=== PATIENT | male | born 1960 | race Hispanic/Latino ===

== ENCOUNTER 2017-11-04 01:16 | Inpatient (IN) | payer MEDICAID, OTHER ==
[2017-11-04 01:23] VITALS: BMI 21.9
--- NOTE | 2017-11-04 01:24 | ED PDOC ---
Arrival/HPI - General Historian: Patient, EMS - General Time Seen by Provider: 11/04/17 01:18 - History of Present Illness Narrative History of Present Illness (Text): 11/04/17 01:21 57 y/o male, no significant pmh, FS 117, found inside the car by the police with the engine on x 1 hour. Pt. is in the ER, appear to be intoxicated with limited HPI can be obtained. Pt. was found by the police that he was inside the car, not responding question appropriately, called for the ambulance and bring the patient to the ER for evaluation. Pt. is here at the ER with no medical or psychological complaints, no homicidal or suicidal ideation, no auditory or visual hallucination. (Miguel Mcmullen) Past Medical History - Provider Review Nursing Documentation Reviewed: Yes - Past History Past History: No Previous - Past Medical History Past Medical History: Unable to Obtain - Past Surgical History Past Surgical History: Unable to Obtain Family/Social History - Physician Review Nursing Documentation Reviewed: Yes Family/Social History: Unknown Family HX Allergies/Home Meds Allergies/Adverse Reactions: Allergies No Known Allergies Allergy (Verified 11/04/17 01:23) Home Medications: Home Meds Medication Instructions Recorded Confirmed Unobtainable 11/04/17 11/04/17 Review of Systems - Review of Systems Systems not reviewed;Unavailable: Intoxicated Constitutional: absent: Fatigue, Weight Change Eyes: absent: Vision Changes ENT: absent: Hearing Changes Respiratory: absent: SOB, Cough Cardiovascular: absent: Chest Pain Gastrointestinal: absent: Abdominal Pain, Diarrhea, Nausea, Vomiting Musculoskeletal: absent: Arthralgias, Myalgias Skin: absent: Rash, Pruritis Neurological: absent: Headache, Dizziness Psychiatric: absent: Anxiety, Depression, Suicidal Ideation Physical Exam - Physical Exam Physical Exam Limitations: Intoxication - Systems Exam Head: Present: Atraumatic, Normocephalic. No: Tenderness, Contusion, Swelling, Ecchymosis, Abrasion, Laceration, Other Pupils: Present: PERRL Extroacular Muscles: Present: EOMI Conjunctiva: Present: Normal Mouth: Present: Moist Mucous Membranes Neck: Present: Normal Range of Motion, Trachea Midline. No: Meningeal Signs, MIDLINE TENDERNESS, Paraspinal Tenderness, Lymphadenopathy Respiratory/Chest: Present: Clear to Auscultation, Good Air Exchange. No: Respiratory Distress, Accessory Muscle Use Cardiovascular: Present: Regular Rate and Rhythm, Normal S1, S2. No: Murmurs Abdomen: No: Tenderness, Distention, Peritoneal Signs, Rebound, Guarding Back: Present: Normal Inspection Upper Extremity: Present: Normal Inspection. No: Cyanosis, Edema Lower Extremity: Present: Normal Inspection. No: Edema Neurological: Present: GCS=15, CN II-XII Intact, Motor Func Grossly Intact Skin: Present: Warm, Dry, Normal Color. No: Rashes Psychiatric: Present: Alert, Normal Insight, Normal Concentration Vital Signs Temp Pulse Pulse Resp BP Pulse Ox 11/04/17 09:09 111 H 16 11/04/17 08:25 100 H 17 131/91 H 95 11/04/17 07:29 98 H 18 123/90 98 11/04/17 06:44 97 F L 90 18 121/87 96 11/04/17 06:29 91 H 18 134/99 H 95 11/04/17 05:21 97.6 F 93 H 16 124/92 H 95 11/04/17 05:05 94 H 18 102/61 96 11/04/17 02:14 97.8 F 110 H 18 109/49 L 95 11/04/17 01:24 97.6 F 110 H 18 140/115 H 94 L Medical Decision Making - Critical Care Critical Care Minutes: 30 minutes Critical Care Time: Unstable - Lab Interpretations I have reviewed the lab results: Yes - RAD Interpretation Manufacturing Design Engineer: Radiologist ED Course and Treatment: 11/04/17 03:04: Case endorsed to me by SHAKILA Mcmullen. Pending CT, Chest X-ray, and labs, reassessment, and disposition. CT Head Without Intravenous Contrast EXAM DATE/TIME: 11/04/2017 1:24 AM Dictated and Authenticated by: Raghu Broussard MD 11/04/2017 4:33 AM Eastern Time ([place] & [place]) IMPRESSION: 1. There is a linear focus of gas within the right frontal scalp, suggestive of laceration. 2. No acute intracranial hemorrhage or acute territorial type infarct. 3. There are scattered foci of hypodensity within the cerebral white matter, likely representing small vessel ischemic disease in a patient this age. 4. Mild atrophy. 5. Multiple foci of gas are identified within the facial soft tissues and parapharyngeal soft tissues at the level of the nasopharynx. This is most significant on the right side. Foci of gas are seen within the orbits, with dilatation of the bilateral superior ophthalmic veins. A facial CT is recommended. 6. There is a cystic collection of fluid adjacent to the root of a right molar tooth extending into the right maxillary sinus measuring 1.3 x 1.3 x 1.5 cm. This is consistent with an odontogenic cyst or abscess. 7. Paranasal sinus disease is noted above. 11/04/17 04:38: Case discussed with medical health researcher. 11/04/17 04:50: Case discussed with Dr. Monroy. Will admit patient to Telemetry. 11/04/17 05:22: Patient seen and evaluated by Dr. Monroy. Requests patient be given more IV Fluids and will re-evaluate to determine if patient should be admitted to ICU or Telemetry. (Oswaldo Goetz) 11/04/17 01:23 -labs/CO Level -CT head -IVF/Oxygen -Observe and reassess 11/04/17 01:34 -Pt. is agitated, threatened to leave and not stable enough to be discharged, pushing ER staff and me, ativan 2mg IM ordered 11/04/17 02:40 -WBC 14.9, Tachycardia, Lactic acid 5.2, hypotension @ 109/49, Code sepsis activated, 30ml/kg LR fluid ordered, IV vancomycin/zosyn ordered. -Pt. pull out the IV, agitated, soft restraint order. 11/04/17 02:51 -Case discussed and endorsed to ER attending Dr. Goetz for the admission and follow up the labs. -Labs show no acute findings except wbc 14.9 with lactic acid 5.2 -Alcohol level 502 -Carboxyhemoglobin level 2.1 (within normal limit for smoker (he is)). -UA ordered but pending -UDS ordered but pending -CT head and chest xray ordered but pending. (Miguel Mcmullen) - Critical Care Narrative Critical Care (Text): 11/04/17 02:59 Confused, sepsis, intoxication, IVF resucitation, IV vancomycin and zosyn (Miguel Mcmullen) - Lab Interpretations Lab Results: 11/04/17 08:33 11/04/17 08:33 Lab Results 11/04/17 08:33: Serum Osmolality 408 H 11/04/17 08:33: Sodium 148, Chloride 109 H, Potassium 3.6, Carbon Dioxide 19 L, Anion Gap 23 H, BUN 13, Creatinine 0.9, Est GFR ( Amer) > 60, Est GFR ( Non-Af Amer) > 60, Random Glucose 84, Calcium 7.8 L, Magnesium 1.7, Total Bilirubin 0.6, AST 55, ALT 31, Alkaline Phosphatase 54, Lactate Dehydrogenase 623, Total Creatine Kinase 213, Troponin I 0.73 H*, Total Protein 6.0, Albumin 3.5, Globulin 2.5, Albumin/Globulin Ratio 1.4 11/04/17 08:33: Procalcitonin 0.08 L 11/04/17 08:33: WBC 11.5 H D, RBC 4.61, Hgb 15.6 D, Hct 45.7, MCV 99.1, MCH 33.8, MCHC 34.1, RDW 14.4, Plt Count 89 L, MPV 10.4, Gran % 65.4, Lymph % (Auto ) 24.9, Beck[place] % (Auto) 8.9 H, Eos % (Auto) 0.6 L, Baso % (Auto) 0.2, Gran # 7.50 H, Lymph # (Auto) 2.9, Beckham # (Auto) 1.0 H, Eos # (Auto) 0.1, Baso # (Auto) 0.02 11/04/17 08:30: Triglycerides 103, Cholesterol 139, LDL Cholesterol Direct 46, HDL Cholesterol 69 H 11/04/17 08:00: pO2 173 H, VBG pH 7.36, VBG pCO2 35.0 L, VBG HCO3 19.8 L, VBG Total CO2 20.9 L, VBG O2 Sat (Calc) 100.0 H, VBG Base Excess -4.9 L, VBG Potassium 3.5 L, Sodium 143.0, Chloride 110.0 H, Glucose 91, Lactate 5.4 H*, FiO2 21.0, Venous Blood Potassium 3.5 L 11/04/17 06:50: pCO2 26 L, pO2 79.0 L, HCO3 16.1 L, ABG pH 7.40, ABG Total CO2 16.9 L, ABG O2 Saturation 97.5, ABG O2 Content 19.6, ABG Base Excess -6.9 L, ABG Hemoglobin 14.7, ABG Carboxyhemoglobin 2.1 H, POC ABG HHb (Measured) 2.4, ABG Methemoglobin 1.0, ABG O2 Capacity 20.1, Hgb O2 Saturation 94.6 L, FiO2 32.0 11/04/17 05:00: Urine Opiates Screen Negative, Urine Methadone Screen Negative, Ur Barbiturates Screen Negative, Ur Phencyclidine Scrn Negative, Ur Amphetamines Screen Negative, U Benzodiazepines Scrn Negative, U Oth Cocaine Metabols Negative, U Cannabinoids Screen Negative 11/04/17 05:00: Urine Color Yellow, Urine Appearance Clear, Urine pH 6.0, Ur Specific [place] 1.020, Urine Protein 30 H, Urine Glucose (UA) Negative, Urine Ketones Trace H, Urine Blood Small H, Urine Nitrate Negative, Urine Bilirubin Negative, Urine Urobilinogen 0.2, Ur Leukocyte Esterase Negative, Urine RBC 0 - 2, Urine WBC 0 - 2, Ur Epithelial Cells 0 - 2 11/04/17 04:45: pO2 215 H, VBG pH 7.29 L, VBG pCO2 36.0 L, VBG HCO3 17.3 L, VBG Total CO2 18.4 L, VBG O2 Sat (Calc) 100.0 H, VBG Base Excess -8.5 L, VBG Potassium 3.3 L, Sodium 142.0, Chloride 109.0 H, Glucose 108, Lactate 5.8 H*, FiO2 21.0, Venous Blood Potassium 3.3 L 11/04/17 02:29: pCO2 30 L, pO2 76.0 L, HCO3 15.8 L, ABG pH 7.33 L, ABG Total CO2 16.7 L, ABG O2 Saturation 96.0, ABG Base Excess -8.6 L, ABG Potassium 3.1 L , Sodium 144.0, Chloride 110.0 H, Glucose 116 H, Lactate 5.0 H*, FiO2 28.0, Arterial Blood Potassium 3.1 L 11/04/17 02:29: ABG O2 Saturation Cancelled, ABG Hemoglobin Cancelled, ABG Carboxyhemoglobin Cancelled, ABG Methemoglobin Cancelled, Hgb O2 Saturation Cancelled, FiO2 Cancelled, Blood Gas Comments Cancelled, Crit Value Called To Cancelled, Crit Value Called By Cancelled, Crit Value Read Back Cancelled, Blood Gas Notified Time Cancelled 11/04/17 02:29: pCO2 30 L, pO2 76.0 L, HCO3 15.8 L, ABG pH 7.33 L, ABG Total CO2 16.7 L, ABG O2 Saturation 96.0, ABG Base Excess -8.6 L, ABG Hemoglobin 17.1 , ABG Carboxyhemoglobin 2.1 H, POC ABG HHb (Measured) 3.9, ABG Methemoglobin 1.0 , Hgb O2 Saturation 93.0 L, FiO2 28 11/04/17 02:08: Phosphorus 3.5 11/04/17 02:08: WBC 14.9 H, RBC 5.27, Hgb 18.3 H*, Hct 52.8 H, MCV 100.2, MCH 34.7, MCHC 34.7, RDW 14.5, Plt Count 128, MPV 9.8, Gran % 68.5 H, Lymph % (Auto ) 23.0, Beckham % (Auto) 8.3 H, Eos % (Auto) 0.1 L, Baso % (Auto) 0.1, Gran # 10.20 H, Lymph # (Auto) 3.4, Beckham # (Auto) 1.2 H, Eos # (Auto) 0.0, Baso # (Auto ) 0.02 11/04/17 02:08: Alcohol, Quantitative 506 H* 11/04/17 02:08: Salicylates < 1 L, Acetaminophen < 10.0 L 11/04/17 02:08: Sodium 147, Chloride 106, Potassium 4.1, Carbon Dioxide 18 L, Anion Gap 27 H, BUN 18, Creatinine 1.4, Est GFR ( Amer) > 60, Est GFR ( Non-Af Amer) 52, Random Glucose 125 H, Calcium 8.8, Magnesium 2.1, Total Bilirubin 0.4, AST 63 H, ALT 39, Alkaline Phosphatase 71, Total Creatine Kinase 211, Total Protein 7.8, Albumin 4.7, Globulin 3.1, Albumin/Globulin Ratio 1.5 11/04/17 01:45: pCO2 29 L, pO2 73.0 L, HCO3 14.6 L, ABG pH 7.31 L, ABG Total CO2 15.5 L, ABG O2 Saturation 96.1, ABG Base Excess -10.2 L, ABG Potassium 3.2 L , Sodium 143.0, Chloride 107.0, Glucose 128 H, Lactate 5.2 H*, FiO2 21.0, Arterial Blood Potassium 3.2 L 11/04/17 01:21: POC Glucose (mg/dL) 117 H - RAD Interpretation Radiology Orders: 11/04/17 01:24 HEAD W/O CONTRAST [CT] Stat 11/04/17 02:38 CHEST PORTABLE [RAD] Stat 11/04/17 05:31 MAXILLOFACIAL W/O CONTRAST [CT] Routine - Medication Orders Current Medication Orders: Aspirin (Aspirin Chewable) 81 mg PO DAILY REBEKAH Atorvastatin Calcium (Lipitor) 20 mg PO DIN REBEKAH Diltiazem HCl (Cardizem) 60 mg PO TID REBEKAH Enoxaparin Sodium (Lovenox) 30 mg SC DAILY [facility] PRN Reason: Protocol Sodium Chloride (Sodium Chloride 0.9%) 1,000 mls @ 100 mls/hr IV .Q10H [facility] Last Admin: 11/04/17 18:53 Dose: 100 mls/hr eMAR Start Stop Document 11/04/17 18:53 LM (Rec: 11/04/17 18:53 LM [id number]) Intravenous Solution Start Date 11/04/17 Start Time 18:53 Piperacillin Sod/Tazobactam Sod (Zosyn 3.375 In Ns 100ml) 100 mls @ 200 mls/hr IVPB Q6 REBEKAH PRN Reason: Protocol Stop: 11/09/17 06:01 Last Admin: 11/04/17 18:40 Dose: 200 mls/hr eMAR Start Stop Document 11/04/17 18:40 LM (Rec: 11/04/17 18:40 LM [id number]) Intravenous Solution Start Date 11/04/17 Start Time 18:40 Lorazepam (Ativan) 2 mg PO Q6H REBEKAH PRN Reason: Protocol Last Admin: 11/04/17 14:54 Dose: 2 mg Behavioural Document 11/04/17 14:54 LM (Rec: 11/04/17 14:55 LM [id number]) Maintenance Maintenance Dose Yes Lorazepam (Ativan) 2 mg IVP Q4H PRN; Protocol PRN Reason: Symptoms of alcohol withdrawl Metoprolol Tartrate (Lopressor) 25 mg PO BRKDIN REBEKAH Ondansetron HCl (Zofran Inj) 4 mg IVP Q4H PRN PRN Reason: Nausea/Vomiting Pantoprazole Sodium (Protonix Inj) 40 mg IVP DAILY [facility] Last Admin: 11/04/17 18:45 Dose: 40 mg IVP Administration Document 11/04/17 18:45 LM (Rec: 11/04/17 18:45 LM [id number]) Charges for Administration # of IVP Administrations 1 Thiamine HCl (Vitamin B1 Tab) 100 mg PO DAILY REBEKAH Discontinued Medications Aspirin (Ecotrin) 81 mg PO DAILY [facility] Last Admin: 11/04/17 14:55 Dose: 81 mg Diltiazem HCl (Cardizem) 5 mg IVP STAT STA Stop: 11/04/17 13:53 Last Admin: 11/04/17 14:55 Dose: 5 mg IVP Administration Document 11/04/17 14:55 LM (Rec: 11/04/17 15:27 LM [id number]) Charges for Administration # of IVP Administrations 1 MAR Pulse and Blood Pressure Document 11/04/17 14:55 LM (Rec: 11/04/17 15:27 LM [id number]) Pulse Pulse Rate (60-90) 142 Blood Pressure Blood Pressure (100/60-150/90) 126/74 Sodium Chloride (Sodium Chloride 0.9%) 1,000 mls @ 250 mls/hr IV .Q4H REBEKAH Sodium Chloride (Sodium Chloride 0.9%) 1,000 mls @ 1,000 mls/hr IV .Q1H [facility] Last Admin: 11/04/17 02:13 Dose: 1,000 mls/hr eMAR Start Stop Document 11/04/17 02:13 RG (Rec: 11/04/17 02:14 RG [id number]) Intravenous Solution Start Date 11/04/17 Start Time 02:13 Vancomycin HCl (Vancomycin 1gm) 1 gm in 250 mls @ 167 mls/hr IVPB STAT STA PRN Reason: Protocol Stop: 11/04/17 04:05 Last Admin: 11/04/17 03:01 Dose: 167 mls/hr eMAR Start Stop Document 11/04/17 03:01 RG (Rec: 11/04/17 03:14 RG [id number]) Intravenous Solution Start Date 11/04/17 Start Time 03:01 Piperacillin Sod/Tazobactam Sod (Zosyn 3.375 In Ns 100ml) 100 mls @ 200 mls/hr IVPB STAT STA PRN Reason: Protocol Stop: 11/04/17 03:05 Last Admin: 11/04/17 02:10 Dose: 200 mls/hr eMAR Start Stop Document 11/04/17 02:10 RG (Rec: 11/04/17 03:14 RG [id number]) Intravenous Solution Start Date 11/04/17 Start Time 02:10 Lactated Ringer's 1,850 ml/ IV (SUPPLIES) 1,850 mls @ 3,701.34 mls/hr IV ONCE ONE PRN Reason: 60 ML/KG/HR Stop: 11/04/17 02:39 Last Admin: 11/04/17 02:40 Dose: 3,701.34 mls/hr eMAR Start Stop Document 11/04/17 02:40 RG (Rec: 11/04/17 03:13 RG [id number]) Intravenous Solution Start Date 11/04/17 Start Time 02:40 Lactated Ringer's 1,850 ml/ IV (SUPPLIES) 1,850 mls @ 3,701.34 mls/hr IV ONCE ONE PRN Reason: 60 ML/KG/HR Stop: 11/04/17 05:17 Last Admin: 11/04/17 05:20 Dose: 3,701.34 mls/hr eMAR Start Stop Document 11/04/17 05:20 RG (Rec: 11/04/17 06:31 RG [id number]) Intravenous Solution Start Date 11/04/17 Start Time 05:20 End Date 11/04/17 End time 06:10 Total Infusion Time 50 Multivitamins/Vitamin C 10 ml/Thiamine HCl 100 mg/ Folic Acid 1 mg/ Sodium Chloride 1,011.2 mls @ 100 mls/hr IV .Q10H7M ONE Stop: 11/04/17 15:26 Last Admin: 11/04/17 06:15 Dose: 100 mls/hr eMAR Start Stop Document 11/04/17 06:15 RG (Rec: 11/04/17 06:30 RG [id number]) Intravenous Solution Start Date 11/04/17 Start Time 06:15 diltiaZEM IVPB 100mg in NS (Cardizem 100mg In Ns) 100 mls @ 5 mls/hr IV .Q20H PRN; Protocol; 5 MG/HR PRN Reason: TITRATE PER MD ORDER Last Admin: 11/04/17 14:55 Dose: 5 mg/hr, 5 mls/hr eMAR Start Stop Document 11/04/17 14:55 LM (Rec: 11/04/17 14:55 LM [id number]) Intravenous Solution Start Date 11/04/17 Start Time 14:55 MAR Pulse Rate Document 11/04/17 14:55 LM (Rec: 11/04/17 14:55 LM [id number]) Pulse Rate Pulse Rate (60-90) 142 Titration Intervention Document 11/04/17 14:55 LM (Rec: 11/04/17 14:55 LM [id number]) Titration Intake Waste Amount 0 Container Volume 100 Titration Dosing Titration Dose 5 IV Rate 5 Intake/Decrease Started Lorazepam (Ativan) 2 mg IM ONCE ONE PRN Reason: Protocol Stop: 11/04/17 01:34 Last Admin: 11/04/17 01:42 Dose: 2 mg IM Administration Charges Document 11/04/17 01:42 RG (Rec: 11/04/17 01:43 RG [id number]) Injection Site MAR Injection Site Left Deltoid Charges for Administration # of IM Administrations 1 - PA / STAFF GENETIC COUNSELOR / Resident Statement / has reviewed & agrees with the documentation as recorded. / has examined the patient and agrees with the treatment plan. Disposition/Present on Arrival - Present on Arrival Any Indicators Present on Arrival: No History of DVT/PE: No History of Uncontrolled Diabetes: No Urinary Catheter: No History of Decub. Ulcer: No History Surgical Site Infection Following: None - Disposition Have Diagnosis and Disposition been Completed?: Yes Disposition Time: 02:44 Patient Plan: Admission - Disposition Diagnosis: Sepsis, Confusion, Alcohol intoxication Disposition: HOSPITALIZED Patient Problems: Current Active Problems Problem Status Onset Sepsis Acute Confusion Acute Alcohol intoxication Acute Condition: GUARDED
[2017-11-04] MEDS ORDERED: Sodium Chloride 0.9% 1,000 ML IV SCH ×2 (01:30→02:12)
[2017-11-04 01:53] LABS: ARTERIAL BLOOD GAS HCO3 14.6 mmol/L (21-28); ARTERIAL BLOOD GAS O2 SAT 96.1 % (95-98); ARTERIAL BLOOD GAS PCO2 29 mm/Hg (35-45); ARTERIAL BLOOD GAS PH 7.31 (7.35-7.45); ARTERIAL BLOOD GAS TCO2 15.5 mmol.L (22-28)
[2017-11-04 02:31] LABS: BASO # 0.02 K/mm3 (0.0-2.0); BASO % 0.1 % (0.0-3.0); EOS % 0.1 % (1.5-5.0); GRAN # 10.2 (1.4-6.5); GRAN % 68.5 % (50.0-68.0); LYMPH # 3.4 (1.2-3.4); MEAN CELL VOLUME 100.2 fl (80.0-105.0); MEAN CORPUSCULAR HEMOGLOBIN 34.7 pg (25.0-35.0); MEAN CORPUSCULAR HGB CONC 34.7 g/dl (31.0-37.0); MEAN PLATELET VOLUME 9.8 fl (7.0-11.0); MONO # 1.2 (0.1-0.6); MONO % 8.3 % (1.0-6.0); RBC 5.27 10^6/uL (3.5-6.1); RED CELL DISTRIBUTION WIDTH 14.5 % (11.5-14.5); WHITE BLOOD COUNT 14.9 10^3/ul (4.5-11.0)
[2017-11-04 02:35] LABS: HEMOGLOBIN 18.3 g/dL (14.0-18.0)
[2017-11-04] MEDS ORDERED: Vancomycin 1gm in NS 250ml 1 GM/250 ML BAG IVPB STA (02:36)
[2017-11-04] MEDS ORDERED: Piperacillin/Tazobact 3.375 gm 100 ML IVPB STA (02:36)
[2017-11-04 02:38] LABS: ACETAMINOPHEN < 10.0 ug/ml (10.0-20.0); SALICYLATE < 1 mg/dL (2.0-20.0)
[2017-11-04 02:39] LABS: ARTERIAL BLOOD GAS HCO3 15.8 mmol/L (21-28); ARTERIAL BLOOD GAS PCO2 30 mm/Hg (35-45); ARTERIAL BLOOD GAS PH 7.33 (7.35-7.45); ARTERIAL BLOOD GAS TCO2 16.7 mmol.L (22-28)
[2017-11-04 02:40] LABS: ALB/GLOB RATIO 1.5 (1.1-1.8); ALBUMIN 4.7 g/dL (3.0-4.8); ALT/SGPT 39 U/L (7-56); AST/SGOT 63 U/L (17-59); BLOOD UREA NITROGEN 18 mg/dL (7-21); CALCIUM 8.8 mg/dL (8.4-10.5); GFR AFRICAN-AMERICAN > 60; GFR NON-AFRICAN AMERICAN 52
--- NOTE | 2017-11-04 04:33 | CT ---
EXAM: CT Head Without Intravenous Contrast EXAM DATE/TIME: 11/04/2017 1:24 AM CLINICAL HISTORY: The patient age is 57 years old and is male; Injury or trauma; Fall; Initial encounter; Concussion / head injury; Additional info: ETOH? Fall? Facility exam id and description: Ct heads head w/o contrast TECHNIQUE: Axial computed tomography images of the head/brain without intravenous contrast. All CT scans at this facility use one or more dose reduction techniques, viz.: automated exposure control; ma/kV adjustment per patient size (including targeted exams where dose is matched to indication; i.e. head); or iterative reconstruction technique. Coronal and sagittal reformatted images were created and reviewed. COMPARISON: No relevant prior studies available. FINDINGS: Brain: There are scattered foci of hypodensity within the cerebral white matter, likely representing small vessel ischemic disease in a patient this age. The acuity of the white matter disease is indeterminate. The white-salas differentiation is preserved demonstrating no acute territorial type infarct. No acute intracranial hemorrhage is seen. Midline shift: There is no midline shift. Ventricles: There is mild prominence of the ventricles and sulci, compatible with atrophy. Bones/joints: The calvarium demonstrates no evidence for a depressed fracture. Soft tissues: There is a linear focus of gas within the right frontal scalp, suggestive of laceration. Vasculature: There is mild atherosclerotic calcification of the intracranial internal carotid arteries. Sinuses: There is near complete filling of the right maxillary sinus. Mucosal thickening/effusion is visualized within the left sphenoid sinus. There is minimal mucosal thickening of the inferior frontal sinuses. Mastoid air cells: No mastoid effusion. Nasopharynx: Multiple foci of gas are identified within the facial soft tissues and parapharyngeal soft tissues at the level of the nasopharynx. This is most significant on the right side. Orbits: Foci of gas are seen within the orbits, with dilatation of the bilateral superior ophthalmic veins. Dilated superior ophthalmic veins can be an isolated finding, although cavernous sinus pathology cannot be excluded. Dental: There is a cystic collection of fluid adjacent to the root of a right molar tooth extending into the right maxillary sinus measuring 1.3 x 1.3 x 1.5 cm. This is consistent with an odontogenic cyst or abscess. IMPRESSION: 1. There is a linear focus of gas within the right frontal scalp, suggestive of laceration. 2. No acute intracranial hemorrhage or acute territorial type infarct. 3. There are scattered foci of hypodensity within the cerebral white matter, likely representing small vessel ischemic disease in a patient this age. 4. Mild atrophy. 5. Multiple foci of gas are identified within the facial soft tissues and parapharyngeal soft tissues at the level of the nasopharynx. This is most significant on the right side. Foci of gas are seen within the orbits, with dilatation of the bilateral superior ophthalmic veins. A facial CT is recommended. 6. There is a cystic collection of fluid adjacent to the root of a right molar tooth extending into the right maxillary sinus measuring 1.3 x 1.3 x 1.5 cm. This is consistent with an odontogenic cyst or abscess. 7. Paranasal sinus disease is noted above.
[2017-11-04 05:00] LABS: VENOUS BLOOD GAS BASE EXCESS -8.5 mmol/L (0.0-2.0); VENOUS BLOOD GAS PO2 215 mm/Hg (30-55); VENOUS BLOOD PH 7.29 (7.32-7.43)
[2017-11-04 05:10] LABS: ARTERIAL BLOOD GAS HCO3 15.8 mmol/L (21-28); ARTERIAL BLOOD GAS PCO2 30 mm/Hg (35-45); ARTERIAL BLOOD GAS PH 7.33 (7.35-7.45)
[2017-11-04 05:11] LABS: ARTERIAL BLOOD GAS HEMOGLOBIN 17.1 g/dL (11.7-17.4); ARTERIAL BLOOD GAS TCO2 16.7 mmol.L (22-28)
[2017-11-04 05:12] LABS: ARTERIAL BLOOD GAS FIO2 28 %
[2017-11-04] MEDS ORDERED: Multivitamin (MVI) 10 ML, Thiamine 100 MG, Folic Acid 1 MG in Sodium Chloride 0.9% 1,00... IV ONE (05:20)
--- NOTE | 2017-11-04 05:41 | CP.PCM.HP ---
<IssaLuis A - Last Filed: 11/04/17 05:35> History of Present Illness - History of Present Illness History of Present Illness: Mr. Diaz is a 57 year old male with a past medical history significant for alcohol abuse and substance abuse who was brought in by ambulance after he was found intoxicated in a vehicle by police. Patient is unresponsive to verbal stimuli and unable to comply with HPI questioning due to intoxication at this time. According to the police, patient endorses that he smoked "dip" at some point prior to presentation which he described as marijuana dipped in formaldehyde. Patient was agitated in ED and threatened to leave but was not appropriate to leave AMA. He was given two doses of Ativan and placed on soft restraints. It is documented that patient had no complaints on presentation, including homicidal/suicidal ideation or any auditory or visual hallucinations. Patient was seen at [facility] once prior in 2013 with a similar presentation and was discharged with a diagnosis of alcohol abuse. Further HPI and ROS are unobtainable at this time. Present on Admission - Present on Admission Any Indicators Present on Admission: No Review of Systems - Review of Systems Systems not reviewed;Unavailable: Intoxicated Past Patient History - Tetanus Immunizations Tetanus Immunization: Unknown - Past Social History Smoking Status: Light Smoker < 10 Cigarettes Daily - PSYCHIATRIC Hx Substance Use: Yes - SURGICAL HISTORY Hx Surgeries: (unknown) Meds Allergies/Adverse Reactions: Allergies Allergy/AdvReac Type Severity Reaction Status Date / Time No Known Allergies Allergy Verified 11/04/17 01:23 Physical Exam - Constitutional Additional comments: Intoxicated - Head Exam Head Exam: NORMOCEPHALIC - Eye Exam Eye Exam: PERRL - ENT Exam ENT Exam: Mucous Membranes Dry. absent: Mucous Membranes Moist, Normal Exam - Neck Exam Neck exam: Negative for: Meningismus, Tenderness - Respiratory Exam Respiratory Exam: Clear to Auscultation Bilateral, NORMAL BREATHING PATTERN. absent: Accessory Muscle Use, Decreased Breath Sounds, Prolonged Expiratory Phase, Rales, Rhonchi, Wheezes, Respiratory Distress, Stridor - Cardiovascular Exam Cardiovascular Exam: Tachycardia, REGULAR RHYTHM, +S1, +S2. absent: Bradycardia , Clicks, Diastolic murmur, Gallop, Irregular Rhythm, JVD, RRR, Rubs, +S4, Systolic Murmur - GI/Abdominal Exam GI & Abdominal Exam: Normal Bowel Sounds, Soft. absent: Bruit, Diminished Bowel Sounds, Distended, Firm, Guarding, Hernia, Hyperactive Bowel Sounds, Hypoactive Bowel Sounds, Mass, Organomegaly, Pulsatile Mass, Rebound, Tenderness - Extremities Exam Extremities exam: Positive for: normal capillary refill, pedal pulses present. Negative for: calf tenderness, joint swelling, pedal edema, tenderness - Neurological Exam Neurological exam: Altered - Skin Skin Exam: Dry, Warm Results - Vital Signs Recent Vital Signs: Last Vital Signs Temp 97.6 F 11/04/17 01:24 Pulse 93 H 11/04/17 05:21 Resp 16 11/04/17 05:21 BP 124/92 H 11/04/17 05:21 Pulse Ox 95 11/04/17 05:21 - Labs Result Diagrams: 11/04/17 02:08 11/04/17 02:08 Assessment & Plan - Assessment and Plan (Free Text) Assessment: 57 year old male with a past medical history significant for alcohol abuse and substance abuse who was brought in by ambulance after he was found intoxicated in a vehicle by police. Patient is unresponsive to verbal stimuli and unable to comply with HPI questioning due to intoxication at this time. Patient was found to be septic in the ED with a leukocytosis of 14.9, tachycardia to 110 and with a lactic acidosis of 5.8. He was given a total of 6L of fluid bolus and one dose of Vancomycin and Zosyn. He was also found to have an alcohol of 506. He is currently on four point soft restraints as he was pulling his IV access. Plan: 1. Sepsis of Undetermined Etiology -Chest X-Ray pending official radiologist interpretation -UA, blood and urine cultures pending -Two liter bolus of LR to given in ED with CBC, CMP, and ABG with Shock Panel immediately after -IV Zosyn -Repeat labs after fluid bolus 2. Alcohol Intoxication -Alcohol level 506 -Banana Bag to be given after fluid bolus -CIWA Q4 -Fall, aspiration and seizure precautions -HOB above 30 degrees -Four point soft restraints for pulling IV access 3. R/O Facial Bone Fracture -CT head showed no acute intracranial abnormalities but multiple foci of gas and parapharyngeal tissues most significant on the right side along with findings suspicious for dental abscess -CT Maxillofacial pending GI Prophylaxis: Protonix DVT Prophylaxis: SCD's Diet: NPO Disposition: ICU versus telemetry level of care to be decided based on lab results to be drawn after fluid bolus administration. Patient seen and case discussed with attending, Dr. Monroy. Saurabh PGY1 - Date & Time Date: 11/04/17 Time: 05:35 <Milton Monroy Q - Last Filed: 11/04/17 06:37> Results - Vital Signs Recent Vital Signs: Last Vital Signs Temp 97.6 F 11/04/17 01:24 Pulse 93 H 11/04/17 05:21 Resp 16 11/04/17 05:21 BP 124/92 H 11/04/17 05:21 Pulse Ox 95 11/04/17 05:21 - Labs Result Diagrams: 11/04/17 02:08 11/04/17 02:08 Labs: Laboratory Results - last 24 hr 11/04/17 11/04/17 11/04/17 01:21 01:45 02:08 WBC RBC Hgb Hct MCV MCH MCHC RDW Plt Count MPV Gran % Lymph % (Auto) [place] % (Auto) Eos % (Auto) Baso % (Auto) Gran # Lymph # (Auto) [place] # (Auto) Eos # (Auto) Baso # (Auto) pCO2 29 L pO2 73.0 L HCO3 14.6 L ABG pH 7.31 L ABG Total CO2 15.5 L ABG O2 Saturation 96.1 ABG Base Excess -10.2 L ABG Hemoglobin ABG Carboxyhemoglobin POC ABG HHb (Measured) ABG Methemoglobin ABG Potassium 3.2 L VBG pH VBG pCO2 VBG HCO3 VBG Total CO2 VBG O2 Sat (Calc) VBG Base Excess VBG Potassium Hgb O2 Saturation Sodium 143.0 147 Chloride 107.0 106 Glucose 128 H Lactate 5.2 H* FiO2 21.0 Blood Gas Comments Crit Value Called To Crit Value Called By Crit Value Read Back Blood Gas Notified Time Potassium 4.1 Carbon Dioxide 18 L Anion Gap 27 H BUN 18 Creatinine 1.4 Est GFR ( Amer) > 60 Est GFR (Non-Af Amer) 52 POC Glucose (mg/dL) 117 H Random Glucose 125 H Calcium 8.8 Phosphorus Magnesium 2.1 Total Bilirubin 0.4 AST 63 H ALT 39 Alkaline Phosphatase 71 Total Creatine Kinase 211 Total Protein 7.8 Albumin 4.7 Globulin 3.1 Albumin/Globulin Ratio 1.5 Arterial Blood Potassium 3.2 L Venous Blood Potassium Urine Color Urine Appearance Urine pH Ur Specific [place] Urine Protein Urine Glucose (UA) Urine Ketones Urine Blood Urine Nitrate Urine Bilirubin Urine Urobilinogen Ur Leukocyte Esterase Urine RBC Urine WBC Ur Epithelial Cells Salicylates Urine Methadone Screen Acetaminophen Alcohol, Quantitative 11/04/17 11/04/17 11/04/17 02:08 02:08 02:08 WBC 14.9 H RBC 5.27 Hgb 18.3 H* Hct 52.8 H MCV 100.2 MCH 34.7 MCHC 34.7 RDW 14.5 Plt Count 128 MPV 9.8 Gran % 68.5 H Lymph % (Auto) 23.0 [place] % (Auto) 8.3 H Eos % (Auto) 0.1 L Baso % (Auto) 0.1 Gran # 10.20 H Lymph # (Auto) 3.4 [place] # (Auto) 1.2 H Eos # (Auto) 0.0 Baso # (Auto) 0.02 pCO2 pO2 HCO3 ABG pH ABG Total CO2 ABG O2 Saturation ABG Base Excess ABG Hemoglobin ABG Carboxyhemoglobin POC ABG HHb (Measured) ABG Methemoglobin ABG Potassium VBG pH VBG pCO2 VBG HCO3 VBG Total CO2 VBG O2 Sat (Calc) VBG Base Excess VBG Potassium Hgb O2 Saturation Sodium Chloride Glucose Lactate FiO2 Blood Gas Comments Crit Value Called To Crit Value Called By Crit Value Read Back Blood Gas Notified Time Potassium Carbon Dioxide Anion Gap BUN Creatinine Est GFR ( Amer) Est GFR (Non-Af Amer) POC Glucose (mg/dL) Random Glucose Calcium Phosphorus Magnesium Total Bilirubin AST ALT Alkaline Phosphatase Total Creatine Kinase Total Protein Albumin Globulin Albumin/Globulin Ratio Arterial Blood Potassium Venous Blood Potassium Urine Color Urine Appearance Urine pH Ur Specific [place] Urine Protein Urine Glucose (UA) Urine Ketones Urine Blood Urine Nitrate Urine Bilirubin Urine Urobilinogen Ur Leukocyte Esterase Urine RBC Urine WBC Ur Epithelial Cells Salicylates < 1 L Urine Methadone Screen Acetaminophen < 10.0 L Alcohol, Quantitative 506 H* 11/04/17 11/04/17 11/04/17 02:08 02:29 02:29 WBC RBC Hgb Hct MCV MCH MCHC RDW Plt Count MPV Gran % Lymph % (Auto) [place] % (Auto) Eos % (Auto) Baso % (Auto) Gran # Lymph # (Auto) [place] # (Auto) Eos # (Auto) Baso # (Auto) pCO2 30 L pO2 76.0 L HCO3 15.8 L ABG pH 7.33 L ABG Total CO2 16.7 L ABG O2 Saturation 96.0 Cancelled ABG Base Excess -8.6 L ABG Hemoglobin 17.1 Cancelled ABG Carboxyhemoglobin 2.1 H Cancelled POC ABG HHb (Measured) 3.9 ABG Methemoglobin 1.0 Cancelled ABG Potassium VBG pH VBG pCO2 VBG HCO3 VBG Total CO2 VBG O2 Sat (Calc) VBG Base Excess VBG Potassium Hgb O2 Saturation 93.0 L Cancelled Sodium Chloride Glucose Lactate FiO2 28 Cancelled Blood Gas Comments Cancelled Crit Value Called To Cancelled Crit Value Called By Cancelled Crit Value Read Back Cancelled Blood Gas Notified Time Cancelled Potassium Carbon Dioxide Anion Gap BUN Creatinine Est GFR ( Amer) Est GFR (Non-Af Amer) POC Glucose (mg/dL) Random Glucose Calcium Phosphorus 3.5 Magnesium Total Bilirubin AST ALT Alkaline Phosphatase Total Creatine Kinase Total Protein Albumin Globulin Albumin/Globulin Ratio Arterial Blood Potassium Venous Blood Potassium Urine Color Urine Appearance Urine pH Ur Specific [place] Urine Protein Urine Glucose (UA) Urine Ketones Urine Blood Urine Nitrate Urine Bilirubin Urine Urobilinogen Ur Leukocyte Esterase Urine RBC Urine WBC Ur Epithelial Cells Salicylates Urine Methadone Screen Acetaminophen Alcohol, Quantitative 11/04/17 11/04/17 11/04/17 02:29 04:45 05:00 WBC RBC Hgb Hct MCV MCH MCHC RDW Plt Count MPV Gran % Lymph % (Auto) [place] % (Auto) Eos % (Auto) Baso % (Auto) Gran # Lymph # (Auto) [place] # (Auto) Eos # (Auto) Baso # (Auto) pCO2 30 L pO2 76.0 L 215 H HCO3 15.8 L ABG pH 7.33 L ABG Total CO2 16.7 L ABG O2 Saturation 96.0 ABG Base Excess -8.6 L ABG Hemoglobin ABG Carboxyhemoglobin POC ABG HHb (Measured) ABG Methemoglobin ABG Potassium 3.1 L VBG pH 7.29 L VBG pCO2 36.0 L VBG HCO3 17.3 L VBG Total CO2 18.4 L VBG O2 Sat (Calc) 100.0 H VBG Base Excess -8.5 L VBG Potassium 3.3 L Hgb O2 Saturation Sodium 144.0 142.0 Chloride 110.0 H 109.0 H Glucose 116 H 108 Lactate 5.0 H* 5.8 H* FiO2 28.0 21.0 Blood Gas Comments Crit Value Called To Crit Value Called By Crit Value Read Back Blood Gas Notified Time Potassium Carbon Dioxide Anion Gap BUN Creatinine Est GFR ( Amer) Est GFR (Non-Af Amer) POC Glucose (mg/dL) Random Glucose Calcium Phosphorus Magnesium Total Bilirubin AST ALT Alkaline Phosphatase Total Creatine Kinase Total Protein Albumin Globulin Albumin/Globulin Ratio Arterial Blood Potassium 3.1 L Venous Blood Potassium 3.3 L Urine Color Yellow Urine Appearance Clear Urine pH 6.0 Ur Specific [place] 1.020 Urine Protein 30 H Urine Glucose (UA) Negative Urine Ketones Trace H Urine Blood Small H Urine Nitrate Negative Urine Bilirubin Negative Urine Urobilinogen 0.2 Ur Leukocyte Esterase Negative Urine RBC 0 - 2 Urine WBC 0 - 2 Ur Epithelial Cells 0 - 2 Salicylates Urine Methadone Screen Acetaminophen Alcohol, Quantitative 11/04/17 05:00 WBC RBC Hgb Hct MCV MCH MCHC RDW Plt Count MPV Gran % Lymph % (Auto) [place] % (Auto) Eos % (Auto) Baso % (Auto) Gran # Lymph # (Auto) [place] # (Auto) Eos # (Auto) Baso # (Auto) pCO2 pO2 HCO3 ABG pH ABG Total CO2 ABG O2 Saturation ABG Base Excess ABG Hemoglobin ABG Carboxyhemoglobin POC ABG HHb (Measured) ABG Methemoglobin ABG Potassium VBG pH VBG pCO2 VBG HCO3 VBG Total CO2 VBG O2 Sat (Calc) VBG Base Excess VBG Potassium Hgb O2 Saturation Sodium Chloride Glucose Lactate FiO2 Blood Gas Comments Crit Value Called To Crit Value Called By Crit Value Read Back Blood Gas Notified Time Potassium Carbon Dioxide Anion Gap BUN Creatinine Est GFR ( Amer) Est GFR (Non-Af Amer) POC Glucose (mg/dL) Random Glucose Calcium Phosphorus Magnesium Total Bilirubin AST ALT Alkaline Phosphatase Total Creatine Kinase Total Protein Albumin Globulin Albumin/Globulin Ratio Arterial Blood Potassium Venous Blood Potassium Urine Color Urine Appearance Urine pH Ur Specific [place] Urine Protein Urine Glucose (UA) Urine Ketones Urine Blood Urine Nitrate Urine Bilirubin Urine Urobilinogen Ur Leukocyte Esterase Urine RBC Urine WBC Ur Epithelial Cells Salicylates Urine Methadone Screen Negative Acetaminophen Alcohol, Quantitative Attending/Attestation - Attestation I have personally seen and examined this patient.: Yes I have fully participated in the care of the patient.: Yes I have reviewed all pertinent clinical information: Yes
[2017-11-04 06:03] LABS: URINE BILIRUBIN NEGATIVE (NEGATIVE); URINE BLOOD SMALL (NEGATIVE); URINE GLUCOSE (UA) NEGATIVE (NEGATIVE); URINE LEUKOCYTE ESTERASE NEGATIVE Leu/uL (NEGATIVE); URINE PROTEIN 30 mg/dL (<30 mg/dL); URINE UROBILINOGEN 0.2 E.U./dL (<1 E.U./dL)
[2017-11-04 06:10] LABS: URINE APPEARANCE CLEAR (CLEAR); URINE COLOR YELLOW (YELLOW)
[2017-11-04 06:14] LABS: URINE EPITHELIAL CELLS 0 - 2 /hpf (0-5); URINE RBC 0 - 2 /hpf (0-2); URINE WBC 0 - 2 /hpf (0-6)
[2017-11-04] MEDS: Piperacillin/Tazobact 3.375 gm 100 ML IVPB SCH ×3 (06:32→18:40)
[2017-11-04 07:02] LABS: ARTERIAL BLOOD GAS HCO3 16.1 mmol/L (21-28); ARTERIAL BLOOD GAS HEMOGLOBIN 14.7 g/dL (11.7-17.4); ARTERIAL BLOOD GAS O2 CAPACITY 20.1 mL/dl (16-24); ARTERIAL BLOOD GAS O2 CONTENT 19.6 ML/dl (15-23); ARTERIAL BLOOD GAS O2 SAT 97.5 % (95-98); ARTERIAL BLOOD GAS PCO2 26 mm/Hg (35-45); ARTERIAL BLOOD GAS TCO2 16.9 mmol.L (22-28)
[2017-11-04 07:14] LABS: BARBITURATES, UR NEGATIVE (NEGATIVE); BENZODIAZEPINES, UR NEGATIVE (NEGATIVE); OPIATES, UR NEGATIVE (NEGATIVE); PHENCYCLIDINE, UR NEGATIVE (NEGATIVE)
[2017-11-04] MEDS: Sodium Chloride 0.9% 1,000 ML IV SCH ×3 (07:56→18:53)
[2017-11-04 08:13] LABS: VENOUS BLOOD GAS BASE EXCESS -4.9 mmol/L (0.0-2.0); VENOUS BLOOD GAS PO2 173 mm/Hg (30-55); VENOUS BLOOD PH 7.36 (7.32-7.43)
[2017-11-04 08:46] LABS: BASO # 0.02 K/mm3 (0.0-2.0); BASO % 0.2 % (0.0-3.0); EOS # 0.1 (0.0-0.7); EOS % 0.6 % (1.5-5.0); GRAN # 7.5 (1.4-6.5); GRAN % 65.4 % (50.0-68.0); HEMOGLOBIN 15.6 g/dL (14.0-18.0); LYMPH # 2.9 (1.2-3.4); LYMPH % 24.9 % (22.0-35.0); MEAN CELL VOLUME 99.1 fl (80.0-105.0); MEAN CORPUSCULAR HEMOGLOBIN 33.8 pg (25.0-35.0); MEAN CORPUSCULAR HGB CONC 34.1 g/dl (31.0-37.0); MEAN PLATELET VOLUME 10.4 fl (7.0-11.0); MONO % 8.9 % (1.0-6.0); RBC 4.61 10^6/uL (3.5-6.1); RED CELL DISTRIBUTION WIDTH 14.4 % (11.5-14.5); WHITE BLOOD COUNT 11.5 10^3/ul (4.5-11.0)
[2017-11-04 08:51] LABS: ALB/GLOB RATIO 1.4 (1.1-1.8); ALBUMIN 3.5 g/dL (3.0-4.8); ALT/SGPT 31 U/L (7-56); AST/SGOT 55 U/L (17-59); BLOOD UREA NITROGEN 13 mg/dL (7-21); CALCIUM 7.8 mg/dL (8.4-10.5); GFR AFRICAN-AMERICAN > 60; GFR NON-AFRICAN AMERICAN > 60
--- NOTE | 2017-11-04 08:58 | CP.PCM.PN ---
Subjective - Date & Time of Evaluation Date of Evaluation: 11/04/17 Time of Evaluation: 08:49 - Subjective Subjective: patient seen and examined. Patient is 57yo male with PMhx of EtOh abuse, and substance abuse who was brought in by ambulance after he was found intoxicated in a vehicle by police. Patient etoh level 508, initially given 2L IVF, repeat lactate downtrending 5.8- ->5.4. Patient currently AAOx3, NAD, eating breakfast, with NO major complaints. Pt denies F/C, Cough, chest pain, SOB, abd pain, N/V/D. No other constitutional symptoms. Objective - Vital Signs/Intake and Output Vital Signs (last 24 hours): Temp Pulse Resp BP Pulse Ox 97 F L 100 H 17 131/91 H 95 11/04/17 06:44 11/04/17 08:25 11/04/17 08:25 11/04/17 08:25 11/04/17 08:25 Intake and Output: 11/04/17 11/04/17 06:59 18:59 Output Total 650 Balance -650 - Medications Medications: Current Medications Multivitamins/Vitamin C 10 ml/Thiamine HCl 100 mg/ Folic Acid 1 mg/ Sodium Chloride 1,011.2 mls @ 100 mls/hr IV .Q10H7M ONE Stop: 11/04/17 15:26 Last Admin: 11/04/17 06:15 Dose: 100 mls/hr Sodium Chloride (Sodium Chloride 0.9%) 1,000 mls @ 100 mls/hr IV .Q10H REBEKAH Last Admin: 11/04/17 07:56 Dose: 100 mls/hr Piperacillin Sod/Tazobactam Sod (Zosyn 3.375 In Ns 100ml) 100 mls @ 200 mls/hr IVPB Q6 REBEKAH PRN Reason: Protocol Stop: 11/04/17 12:29 Last Admin: 11/04/17 06:32 Dose: 200 mls/hr Ondansetron HCl (Zofran Inj) 4 mg IVP Q4H PRN PRN Reason: Nausea/Vomiting Pantoprazole Sodium (Protonix Inj) 40 mg IVP DAILY REBEKAH - Labs Labs: 11/04/17 02:08 11/04/17 02:08 - Constitutional Appears: Non-toxic, No Acute Distress - Head Exam Head Exam: NORMAL INSPECTION - Eye Exam Eye Exam: Normal appearance - ENT Exam ENT Exam: Mucous Membranes Moist - Respiratory Exam Respiratory Exam: Clear to Ausculation Bilateral, NORMAL BREATHING PATTERN - Cardiovascular Exam Cardiovascular Exam: REGULAR RHYTHM, +S1, +S2 - GI/Abdominal Exam GI & Abdominal Exam: Soft, Normal Bowel Sounds - Back Exam Back Exam: NORMAL INSPECTION - Neurological Exam Neurological Exam: Alert, Awake, Oriented x3 Assessment and Plan - Assessment and Plan (Free Text) Assessment: 57yo male a/w lactic acidosis, and etoh intoxication Lactic Acidosis EtOH intoxication Polysubstance abuse r/o Sepsis - currently afebrile, HD stable, BP 136/95, HR 100, AAOx3, NAD, eating breakfast , with NO major complaints - Lactate minimally elevated, 5.8-->5.4, after 2L Bolus, in setting of etoh inotoxication - elevated lactic acidosis likely 2/2 EtOH, although sepsis/ongoing ischemia cannot be ruled out - given broad spectrum abx - would continue with IVF aggressively, NS 150cc/hr - broad spectrum abx - panculture, check procal - monitor for etoh withdrawal - MVT, Thiamine, Folic Acid - Ativan PRN, CIWA protocol - GI ppx - DVT pp - clinically stable, monitor on telemetry
--- NOTE | 2017-11-04 08:58 | RAD ---
HISTORY: Sepsis Patient COMPARISON: No prior. FINDINGS: LUNGS: No active pulmonary disease. PLEURA: No significant pleural effusion identified, no pneumothorax apparent. CARDIOVASCULAR: Normal. OSSEOUS STRUCTURES: There is a bony defect in the right humeral head which may be secondary to chronic dislocations. VISUALIZED UPPER ABDOMEN: Normal. OTHER FINDINGS: None. IMPRESSION: No active disease.
[2017-11-04 09:21] LABS: TROPONIN I 0.73 ng/mL
--- NOTE | 2017-11-04 09:31 | CARD ---
APPROVED REPORT EKG Measurement Heart [id number] <Conclusion> Normal sinus rhythm Poor Rr Progression Abnormal ECG
--- NOTE | 2017-11-04 10:46 | CT ---
PROCEDURE: CT MAXILLOFACIAL BONES WITHOUT CONTRAST HISTORY: AMS COMPARISON: None TECHNIQUE: Contiguous axial CT images of the maxillofacial bones were obtained. Coronal and sagittal reformats were generated. Radiation dose: Total exam DLP = 15 47 mGy-cm. This CT exam was performed using one or more of the following dose reduction techniques: Automated exposure control, adjustment of the mA and/or kV according to patient size, and/or use of iterative reconstruction technique. FINDINGS: NASAL BONES: Unremarkable. ORBITS: Unremarkable. PARANASAL SINUSES/ MASTOIDS: Clear. MAXILLA: There is complete opacification of the right maxillary sinus. There is a thin walled dental cyst that extends into the maxillary sinus MANDIBLE/ TEMPOROMANDIBULAR JOINTS: Unremarkable. SKULL BASE: Unremarkable. TEMPORAL BONES: Middle ears and mastoid grossly unremarkable. OTHER FINDINGS: None. IMPRESSION: No acute findings. Opacified right maxillary sinus. Thin walled cyst at the base of a tooth in the right maxillary ridge extending into the maxillary sinus
[2017-11-04 11:45] LABS: VENOUS BLOOD GAS PO2 64 mm/Hg (30-55)
[2017-11-04 12:31] LABS: HDL CHOLESTEROL 69 mg/dL (29-60)
[2017-11-04 12:53] LABS: LDL CHOLESTEROL 46 mg/dL (0-129)
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
[2017-11-04] MEDS ORDERED: diltiaZEM IVPB 100mg in NS 100 ML IV PRN (14:31)
--- NOTE | 2017-11-04 14:48 | ED PDOC ---
Physical Exam - Physical Exam Narrative Physical Exam (Text): Pending ICU re-evaluation after IVF boluses and repeat lactate. Dr. Garcia evaluated patient in ED at bedside, recommends telemetry admission at this time. Vital Signs Temp Pulse Pulse Resp BP Pulse Ox 11/04/17 09:09 111 H 16 11/04/17 08:25 100 H 17 131/91 H 95 11/04/17 07:29 98 H 18 123/90 98 11/04/17 06:44 97 F L 90 18 121/87 96 11/04/17 06:29 91 H 18 134/99 H 95 11/04/17 05:21 97.6 F 93 H 16 124/92 H 95 11/04/17 05:05 94 H 18 102/61 96 11/04/17 02:14 97.8 F 110 H 18 109/49 L 95 11/04/17 01:24 97.6 F 110 H 18 140/115 H 94 L Medical Decision Making - Lab Interpretations Lab Results: 11/04/17 08:33 11/04/17 08:33 Lab Results 11/04/17 08:33: Serum Osmolality 408 H 11/04/17 08:33: Sodium 148, Chloride 109 H, Potassium 3.6, Carbon Dioxide 19 L, Anion Gap 23 H, BUN 13, Creatinine 0.9, Est GFR ( Amer) > 60, Est GFR ( Non-Af Amer) > 60, Random Glucose 84, Calcium 7.8 L, Magnesium 1.7, Total Bilirubin 0.6, AST 55, ALT 31, Alkaline Phosphatase 54, Lactate Dehydrogenase 623, Total Creatine Kinase 213, Troponin I 0.73 H*, Total Protein 6.0, Albumin 3.5, Globulin 2.5, Albumin/Globulin Ratio 1.4 11/04/17 08:33: Procalcitonin 0.08 L 11/04/17 08:33: WBC 11.5 H D, RBC 4.61, Hgb 15.6 D, Hct 45.7, MCV 99.1, MCH 33.8, MCHC 34.1, RDW 14.4, Plt Count 89 L, MPV 10.4, Gran % 65.4, Lymph % (Auto ) 24.9, Randolph % (Auto) 8.9 H, Eos % (Auto) 0.6 L, Baso % (Auto) 0.2, Gran # 7.50 H, Lymph # (Auto) 2.9, Randolph # (Auto) 1.0 H, Eos # (Auto) 0.1, Baso # (Auto) 0.02 11/04/17 08:30: Triglycerides 103, Cholesterol 139, LDL Cholesterol Direct 46, HDL Cholesterol 69 H 11/04/17 08:00: pO2 173 H, VBG pH 7.36, VBG pCO2 35.0 L, VBG HCO3 19.8 L, VBG Total CO2 20.9 L, VBG O2 Sat (Calc) 100.0 H, VBG Base Excess -4.9 L, VBG Potassium 3.5 L, Sodium 143.0, Chloride 110.0 H, Glucose 91, Lactate 5.4 H*, FiO2 21.0, Venous Blood Potassium 3.5 L 11/04/17 06:50: pCO2 26 L, pO2 79.0 L, HCO3 16.1 L, ABG pH 7.40, ABG Total CO2 16.9 L, ABG O2 Saturation 97.5, ABG O2 Content 19.6, ABG Base Excess -6.9 L, ABG Hemoglobin 14.7, ABG Carboxyhemoglobin 2.1 H, POC ABG HHb (Measured) 2.4, ABG Methemoglobin 1.0, ABG O2 Capacity 20.1, Hgb O2 Saturation 94.6 L, FiO2 32.0 11/04/17 05:00: Urine Opiates Screen Negative, Urine Methadone Screen Negative, Ur Barbiturates Screen Negative, Ur Phencyclidine Scrn Negative, Ur Amphetamines Screen Negative, U Benzodiazepines Scrn Negative, U Oth Cocaine Metabols Negative, U Cannabinoids Screen Negative 11/04/17 05:00: Urine Color Yellow, Urine Appearance Clear, Urine pH 6.0, Ur Specific [place] 1.020, Urine Protein 30 H, Urine Glucose (UA) Negative, Urine Ketones Trace H, Urine Blood Small H, Urine Nitrate Negative, Urine Bilirubin Negative, Urine Urobilinogen 0.2, Ur Leukocyte Esterase Negative, Urine RBC 0 - 2, Urine WBC 0 - 2, Ur Epithelial Cells 0 - 2 11/04/17 04:45: pO2 215 H, VBG pH 7.29 L, VBG pCO2 36.0 L, VBG HCO3 17.3 L, VBG Total CO2 18.4 L, VBG O2 Sat (Calc) 100.0 H, VBG Base Excess -8.5 L, VBG Potassium 3.3 L, Sodium 142.0, Chloride 109.0 H, Glucose 108, Lactate 5.8 H*, FiO2 21.0, Venous Blood Potassium 3.3 L 11/04/17 02:29: pCO2 30 L, pO2 76.0 L, HCO3 15.8 L, ABG pH 7.33 L, ABG Total CO2 16.7 L, ABG O2 Saturation 96.0, ABG Base Excess -8.6 L, ABG Potassium 3.1 L , Sodium 144.0, Chloride 110.0 H, Glucose 116 H, Lactate 5.0 H*, FiO2 28.0, Arterial Blood Potassium 3.1 L 11/04/17 02:29: ABG O2 Saturation Cancelled, ABG Hemoglobin Cancelled, ABG Carboxyhemoglobin Cancelled, ABG Methemoglobin Cancelled, Hgb O2 Saturation Cancelled, FiO2 Cancelled, Blood Gas Comments Cancelled, Crit Value Called To Cancelled, Crit Value Called By Cancelled, Crit Value Read Back Cancelled, Blood Gas Notified Time Cancelled 11/04/17 02:29: pCO2 30 L, pO2 76.0 L, HCO3 15.8 L, ABG pH 7.33 L, ABG Total CO2 16.7 L, ABG O2 Saturation 96.0, ABG Base Excess -8.6 L, ABG Hemoglobin 17.1 , ABG Carboxyhemoglobin 2.1 H, POC ABG HHb (Measured) 3.9, ABG Methemoglobin 1.0 , Hgb O2 Saturation 93.0 L, FiO2 28 11/04/17 02:08: Phosphorus 3.5 11/04/17 02:08: WBC 14.9 H, RBC 5.27, Hgb 18.3 H*, Hct 52.8 H, MCV 100.2, MCH 34.7, MCHC 34.7, RDW 14.5, Plt Count 128, MPV 9.8, Gran % 68.5 H, Lymph % (Auto ) 23.0, Randolph % (Auto) 8.3 H, Eos % (Auto) 0.1 L, Baso % (Auto) 0.1, Gran # 10.20 H, Lymph # (Auto) 3.4, Randolph # (Auto) 1.2 H, Eos # (Auto) 0.0, Baso # (Auto ) 0.02 11/04/17 02:08: Alcohol, Quantitative 506 H* 11/04/17 02:08: Salicylates < 1 L, Acetaminophen < 10.0 L 11/04/17 02:08: Sodium 147, Chloride 106, Potassium 4.1, Carbon Dioxide 18 L, Anion Gap 27 H, BUN 18, Creatinine 1.4, Est GFR ( Amer) > 60, Est GFR ( Non-Af Amer) 52, Random Glucose 125 H, Calcium 8.8, Magnesium 2.1, Total Bilirubin 0.4, AST 63 H, ALT 39, Alkaline Phosphatase 71, Total Creatine Kinase 211, Total Protein 7.8, Albumin 4.7, Globulin 3.1, Albumin/Globulin Ratio 1.5 11/04/17 01:45: pCO2 29 L, pO2 73.0 L, HCO3 14.6 L, ABG pH 7.31 L, ABG Total CO2 15.5 L, ABG O2 Saturation 96.1, ABG Base Excess -10.2 L, ABG Potassium 3.2 L , Sodium 143.0, Chloride 107.0, Glucose 128 H, Lactate 5.2 H*, FiO2 21.0, Arterial Blood Potassium 3.2 L 11/04/17 01:21: POC Glucose (mg/dL) 117 H - RAD Interpretation Radiology Orders: 11/04/17 01:24 HEAD W/O CONTRAST [CT] Stat 11/04/17 02:38 CHEST PORTABLE [RAD] Stat 11/04/17 05:31 MAXILLOFACIAL W/O CONTRAST [CT] Routine - Medication Orders Current Medication Orders: Aspirin (Ecotrin) 81 mg PO DAILY [facility] Multivitamins/Vitamin C 10 ml/Thiamine HCl 100 mg/ Folic Acid 1 mg/ Sodium Chloride 1,011.2 mls @ 100 mls/hr IV .Q10H7M ONE Stop: 11/04/17 15:26 Last Admin: 11/04/17 06:15 Dose: 100 mls/hr eMAR Start Stop Document 11/04/17 06:15 RG (Rec: 11/04/17 06:30 RG [id number]) Intravenous Solution Start Date 11/04/17 Start Time 06:15 Sodium Chloride (Sodium Chloride 0.9%) 1,000 mls @ 100 mls/hr IV .Q10H [facility] Last Admin: 11/04/17 07:56 Dose: 100 mls/hr eMAR Start Stop Document 11/04/17 07:56 LMC (Rec: 11/04/17 07:56 [facility] [id number]) Intravenous Solution Start Date 11/04/17 Start Time 07:56 Piperacillin Sod/Tazobactam Sod (Zosyn 3.375 In Ns 100ml) 100 mls @ 200 mls/hr IVPB Q6 [facility] PRN Reason: Protocol Stop: 11/09/17 06:01 Last Admin: 11/04/17 06:32 Dose: 200 mls/hr eMAR Start Stop Document 11/04/17 06:32 RG (Rec: 11/04/17 06:32 RG [id number]) Intravenous Solution Start Date 11/04/17 Start Time 06:32 diltiaZEM IVPB 100mg in NS (Cardizem 100mg In Ns) 100 mls @ 5 mls/hr IV .Q20H PRN; Protocol; 5 MG/HR PRN Reason: TITRATE PER MD ORDER Lorazepam (Ativan) 2 mg PO Q6H [facility] PRN Reason: Protocol Last Admin: 11/04/17 11:03 Dose: 2 mg Behavioural Document 11/04/17 11:03 LM (Rec: 11/04/17 11:03 LM [id number]) Maintenance Maintenance Dose Yes Lorazepam (Ativan) 2 mg IVP Q4H PRN; Protocol PRN Reason: Symptoms of alcohol withdrawl Ondansetron HCl (Zofran Inj) 4 mg IVP Q4H PRN PRN Reason: Nausea/Vomiting Pantoprazole Sodium (Protonix Inj) 40 mg IVP DAILY [facility] Discontinued Medications Diltiazem HCl (Cardizem) 5 mg IVP STAT STA Stop: 11/04/17 13:53 Sodium Chloride (Sodium Chloride 0.9%) 1,000 mls @ 250 mls/hr IV .Q4H [facility] Sodium Chloride (Sodium Chloride 0.9%) 1,000 mls @ 1,000 mls/hr IV .Q1H [facility] Last Admin: 11/04/17 02:13 Dose: 1,000 mls/hr eMAR Start Stop Document 11/04/17 02:13 RG (Rec: 11/04/17 02:14 RG [id number]) Intravenous Solution Start Date 11/04/17 Start Time 02:13 Vancomycin HCl (Vancomycin 1gm) 1 gm in 250 mls @ 167 mls/hr IVPB STAT STA PRN Reason: Protocol Stop: 11/04/17 04:05 Last Admin: 11/04/17 03:01 Dose: 167 mls/hr eMAR Start Stop Document 11/04/17 03:01 RG (Rec: 11/04/17 03:14 RG [id number]) Intravenous Solution Start Date 11/04/17 Start Time 03:01 Piperacillin Sod/Tazobactam Sod (Zosyn 3.375 In Ns 100ml) 100 mls @ 200 mls/hr IVPB STAT STA PRN Reason: Protocol Stop: 11/04/17 03:05 Last Admin: 11/04/17 02:10 Dose: 200 mls/hr eMAR Start Stop Document 11/04/17 02:10 RG (Rec: 11/04/17 03:14 RG [id number]) Intravenous Solution Start Date 11/04/17 Start Time 02:10 Lactated Ringer's 1,850 ml/ IV (SUPPLIES) 1,850 mls @ 3,701.34 mls/hr IV ONCE ONE PRN Reason: 60 ML/KG/HR Stop: 11/04/17 02:39 Last Admin: 11/04/17 02:40 Dose: 3,701.34 mls/hr eMAR Start Stop Document 11/04/17 02:40 RG (Rec: 11/04/17 03:13 RG [id number]) Intravenous Solution Start Date 11/04/17 Start Time 02:40 Lactated Ringer's 1,850 ml/ IV (SUPPLIES) 1,850 mls @ 3,701.34 mls/hr IV ONCE ONE PRN Reason: 60 ML/KG/HR Stop: 11/04/17 05:17 Last Admin: 11/04/17 05:20 Dose: 3,701.34 mls/hr eMAR Start Stop Document 11/04/17 05:20 RG (Rec: 11/04/17 06:31 RG [id number]) Intravenous Solution Start Date 11/04/17 Start Time 05:20 End Date 11/04/17 End time 06:10 Total Infusion Time 50 Lorazepam (Ativan) 2 mg IM ONCE ONE PRN Reason: Protocol Stop: 11/04/17 01:34 Last Admin: 11/04/17 01:42 Dose: 2 mg IM Administration Charges Document 11/04/17 01:42 ALIYA (Rec: 11/04/17 01:43 RG [id number]) Injection Site MAR Injection Site Left Deltoid Charges for Administration # of IM Administrations 1 Disposition/Present on Arrival - Present on Arrival Any Indicators Present on Arrival: Yes History of DVT/PE: No History of Uncontrolled Diabetes: No Urinary Catheter: Yes History of Decub. Ulcer: No History Surgical Site Infection Following: Orthopedic Procedures, None - Disposition Have Diagnosis and Disposition been Completed?: Yes Diagnosis: Sepsis, Confusion, Alcohol intoxication Disposition: HOSPITALIZED Disposition Time: 08:50 Patient Plan: Admission, Telemetry Patient Problems: Current Active Problems Problem Status Onset Alcohol intoxication Acute Confusion Acute Sepsis Acute Condition: GUARDED
--- NOTE | 2017-11-04 14:54 | CARD ---
APPROVED REPORT EKG Measurement Heart [id number] <Conclusion> Atrial fibrillation with rapid ventricular response Nonspecific ST and T wave abnormality, probably digitalis effect Abnormal ECG
[2017-11-04] MEDS ORDERED: diltiaZEM IVPB 100mg in NS 100 ML IV SCH (20:00)
[2017-11-04] MEDS ORDERED: Iohexol 350 MG/100 ML VIAL ONE (20:16)
[2017-11-04] MEDS ORDERED: Metoprolol 1 mg/ml Inj IVP ONE (21:55)
--- NOTE | 2017-11-04 22:25 | CT ---
EXAM: CT Angiography Chest With Intravenous Contrast EXAM DATE/TIME: 11/04/2017 8:11 PM CLINICAL HISTORY: 57 years old, male; Signs and symptoms; Shortness of breath; Patient HX: SOB ETOH; Additional info: Elevated d-dimer; Tachycardia TECHNIQUE: Axial computed tomographic angiography images of the chest with intravenous contrast using pulmonary embolism protocol. All CT scans at this facility use one or more dose reduction techniques, viz.: automated exposure control; ma/kV adjustment per patient size (including targeted exams where dose is matched to indication; i.e. head); or iterative reconstruction technique. MIP reconstructed images were created and reviewed. Coronal and sagittal reformatted images were created and reviewed. CONTRAST: 100 mL of OMNI 350 administered intravenously. COMPARISON: Recent chest radiographs FINDINGS: LIMITATIONS: Mild streak/motion artifact. Streak artifact from the patient's arms. PULMONARY ARTERIES: Findings compatible with acute bilateral pulmonary emboli. A saddle pulmonary embolus is identified--there is a ribbonlike filling defect in the central pulmonary arteries, which crosses the midline. Multiple additional pulmonary emboli are seen, in the left upper lobe, left lower lobe, right upper lobe, right lower lobe and right middle lobe pulmonary arteries. The overall clot burden is large. Main pulmonary artery segment is borderline enlarged, measuring 3 cm. AORTA: No evidence of aortic dissection. LUNGS: Small areas of groundglass consolidation in the anterior upper lobes bilaterally. Findings could be due to either small bilateral infiltrates/pneumonia versus bilateral pulmonary infarcts. No evidence of diffuse pulmonary vascular congestion. PLEURAL SPACE: Bilateral pleural effusions, small in size, mildly larger on the right. No pneumothorax is seen. HEART: Enlargement of the right heart chambers, highly suspicious for right heart strain. No evidence of significant pericardial effusion. MEDIASTINUM: Scattered small foci of air in the mediastinum, most likely intravenous in location and related to a recent IV injection. BONES/JOINTS: Chronic-appearing deformity and flattening of the right humeral head, compatible with an old fracture. A chronic impaction fracture, secondary to a prior glenohumeral dislocation could have this appearance Recommend clinical correlation. SOFT TISSUES: No acute abnormality of the visualized soft tissues seen. LYMPH NODES: No evidence of diffuse lymphadenopathy. LIVER: Fatty infiltration of the liver. IMPRESSION: - Bilateral pulmonary emboli, including a saddle pulmonary embolus. The clot burden is large, and there is evidence of associated right heart strain. - Areas of groundglass consolidation in the upper lobes, which could be due to small bilateral infiltrates versus pulmonary infarcts. - Small bilateral pleural effusions. - See above for remaining findings.
--- NOTE | 2017-11-04 22:56 | CP.PCM.PN ---
Subjective - Date & Time of Evaluation Date of Evaluation: 11/04/17 Time of Evaluation: 10:50 - Subjective Subjective: 57 year old male who was admitted to [facility] for alcohol intoxication, sepsis confusion, an elevated lactic acidosis (non-responding to fluids or IV antibiotics) new-onset atrial fibrillation with persistent tachycardia, an elevated D-dimer who subsequently underwent CT PE protocol and was found to bilateral pulmonary emboli, including a saddle pulmonary embolus, with evidence of associated right heart strain. Virtual radiologist, Iman Cancino, called and informed me of these CT findings. I immediately spoke to the house doctor, Dr. Gonzales Ledesma, who requested for ICU evaluation. The physician covering the ICU overnight immediately accepted the patient and started him on a therapeutic heparin drip. The patient was transferred from telemetry to ICU immediately. Objective - Vital Signs/Intake and Output Vital Signs (last 24 hours): Temp Pulse Resp BP Pulse Ox 97.9 F 139 H 20 129/96 H 95 11/04/17 18:00 11/04/17 22:03 11/04/17 18:00 11/04/17 22:03 11/04/17 08:25 Intake and Output: 11/04/17 11/05/17 18:59 06:59 Intake Total 300 Output Total 1200 Balance -900 - Medications Medications: Current Medications Aspirin (Aspirin Chewable) 81 mg PO DAILY [facility] Atorvastatin Calcium (Lipitor) 20 mg PO DIN [facility] Last Admin: 11/04/17 22:18 Dose: 20 mg Sodium Chloride (Sodium Chloride 0.9%) 1,000 mls @ 100 mls/hr IV .Q10H [facility] Last Admin: 11/04/17 18:53 Dose: 100 mls/hr Piperacillin Sod/Tazobactam Sod (Zosyn 3.375 In Ns 100ml) 100 mls @ 200 mls/hr IVPB Q6 [facility] PRN Reason: Protocol Stop: 11/09/17 06:01 Last Admin: 11/04/17 18:40 Dose: 200 mls/hr diltiaZEM IVPB 100mg in NS (Cardizem 100mg In Ns) 100 mls @ 5 mls/hr IV .Q20H [facility] PRN Reason: 5 MG/HR Last Admin: 11/04/17 20:13 Dose: 5 mls/hr Heparin Sodium/Sodium Chloride (Heparin 10103 Units/250ml 1/2 Normal Saline) 25 ,000 units in 250 mls @ 11.104 mls/hr IV .[id number] PRN; Protocol; 18 UNITS/KG/HR PRN Reason: ADJUST RATE PER PROTOCOL Lorazepam (Ativan) 2 mg PO Q6H [facility] PRN Reason: Protocol Last Admin: 11/04/17 22:17 Dose: 2 mg Lorazepam (Ativan) 2 mg IVP Q4H PRN; Protocol PRN Reason: Symptoms of alcohol withdrawl Last Admin: 11/04/17 20:55 Dose: 2 mg Metoprolol Tartrate (Lopressor) 25 mg PO BRKDIN RE[facility] Ondansetron HCl (Zofran Inj) 4 mg IVP Q4H PRN PRN Reason: Nausea/Vomiting Pantoprazole Sodium (Protonix Inj) 40 mg IVP DAILY [facility] Last Admin: 11/04/17 18:45 Dose: 40 mg Thiamine HCl (Vitamin B1 Tab) 100 mg PO DAILY REBEK[facility] - Constitutional Appears: Toxic, In Acute Distress - Head Exam Head Exam: ATRAUMATIC - Eye Exam Eye Exam: EOMI, Normal appearance - Respiratory Exam Respiratory Exam: Decreased Breath Sounds - Cardiovascular Exam Cardiovascular Exam: Tachycardia, Irregular Rhythm - GI/Abdominal Exam GI & Abdominal Exam: Soft, Normal Bowel Sounds - Extremities Exam Extremities Exam: Pedal Edema (trace) - Neurological Exam Neurological Exam: Alert, Awake - Psychiatric Exam Psychiatric exam: Normal Affect, Normal Mood - Skin Additional comments: pale Assessment and Plan - Assessment and Plan (Free Text) Assessment: Bilateral PE, including saddle pulmonary embolus, with right heart strain Plan: 1) Saddle PE - ICU consulted - Recommend consulting ROBERTO Pardo for possible EKOS thrombolysis - Recommend Pulmonary consult - Further management per ICU team Case reviewed and discussed with Dr. Gonzales Ledesma, attending physician.
[2017-11-04 23:21] LABS: INR 0.96 (0.93-1.08); PARTIAL THROMBOPLASTIN TIME 33.5 Seconds (25.1-36.5); PROTHROMBIN TIME 10.9 SECONDS (9.4-12.5)
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
[2017-11-05] MEDS: Heparin25000 units/250ml 1/2NS 25,000 UNITS/250 ML BAG IV PRN (00:42)
[2017-11-05] MEDS: Piperacillin/Tazobact 3.375 gm 100 ML IVPB SCH ×3 (00:46→18:06)
--- NOTE | 2017-11-05 04:04 | CON ---
DATE: 11/04/2017 CARDIOLOGY CONSULTATION REASON FOR CONSULTATION: Rapid atrial fibrillation. HISTORY OF PRESENT ILLNESS: The patient is a 57-year-old male who was brought in from his car by the police and was found to be intoxicated. Patient alcohol level on admission was 546. Initial EKG with sinus rhythm; however, the patient subsequently developed rapid atrial fibrillation, required IV Cardizem infusion He denies any chest pain and he is unaware of any history of heart attack in the past. SOCIAL HISTORY: Patient is a smoker, ETOH abuser. MEDICATIONS: Ativan 2 mg intravenously every 4 hours p.r.n., Cardizem infusion at 5 mg/hour, aspirin 81 mg once a day, Zosyn 3.375 g intravenously every 6 hours. PHYSICAL EXAMINATION: GENERAL: The patient is a middle-aged male who does not appear to be in acute distress. VITAL SIGNS: Blood pressure , temperature 97.9, respirations 20. HEENT: Normocephalic. CHEST: Clear. HEART: S1 and S2, regular. EXTREMITIES: No edema. LABORATORY DATA: SMA-7: Sodium 148, potassium 3.6, chloride 109, CO2 of 19, glucose 84, BUN 15, creatinine 0.9. Troponin 0.73 and 0.57 respectively. Hemoglobin and hematocrit 16.6 and 45.7, white count 11.5, platelet count 89,000. Urine drug screen is negative. Alcohol level is 546. DIAGNOSTIC DATA: The most recent EKG was around 08:30 p.m. yesterday, which revealed rapid atrial fibrillation at 165, heart rate with nonspecific ST-T wave changes. ASSESSMENT: 1. Alcohol intoxication. 2. New onset atrial fibrillation. 3. Borderline troponin elevation. 4. Rule out non-ST elevation myocardial infarction. 5. Mild thrombocytopenia. RECOMMENDATIONS: Discontinue IV Cardizem and start oral Cardizem at 60 mg every 8 hours. Start Lopressor 25 mg twice a day. Optimize intravenous hydration. Start aspirin 81 mg once a day, subcutaneous Lovenox at 40 mg daily. Obtain serum D-dimer and an echocardiogram. Start thiamine 100 mg daily. Full anti-coagulation may not be appropriate at this time because of clinically impeding DTs Adrien Hannallah, MD MTDD
[2017-11-05] MEDS: Dexmedetomidine 400mcg/100mL 400 MCG/100 ML BOTTLE IV PRN ×2 (04:55→22:49)
[2017-11-05 05:31] LABS: BASO # 0.05 K/mm3 (0.0-2.0); BASO % 0.6 % (0.0-3.0); EOS % 0.2 % (1.5-5.0); GRAN # 5.79 (1.4-6.5); GRAN % 66.4 % (50.0-68.0); HEMOGLOBIN 13.7 g/dL (14.0-18.0); LYMPH # 1.9 (1.2-3.4); LYMPH % 21.7 % (22.0-35.0); MEAN CELL VOLUME 98.8 fl (80.0-105.0); MEAN CORPUSCULAR HEMOGLOBIN 33.5 pg (25.0-35.0); MEAN CORPUSCULAR HGB CONC 33.9 g/dl (31.0-37.0); MEAN PLATELET VOLUME 10.7 fl (7.0-11.0); MONO % 11.1 % (1.0-6.0); RBC 4.09 10^6/uL (3.5-6.1); RED CELL DISTRIBUTION WIDTH 14.2 % (11.5-14.5); WHITE BLOOD COUNT 8.7 10^3/ul (4.5-11.0)
[2017-11-05 06:34] LABS: ALB/GLOB RATIO 1.2 (1.1-1.8); ALBUMIN 3.2 g/dL (3.0-4.8); ALT/SGPT 46 U/L (7-56); AST/SGOT 123 U/L (17-59); BLOOD UREA NITROGEN 10 mg/dL (7-21); CALCIUM 8.2 mg/dL (8.4-10.5); GFR AFRICAN-AMERICAN > 60; GFR NON-AFRICAN AMERICAN > 60
--- NOTE | 2017-11-05 07:51 | CP.PCM.PN ---
<Silvia Estrella - Last Filed: 11/05/17 10:40> Subjective - Date & Time of Evaluation Date of Evaluation: 11/05/17 Time of Evaluation: 07:50 - Subjective Subjective: PGY-[address] Rodriguez Pt was on precedex and awake, lethargic. Denies chest pain or any acute complaint Objective - Vital Signs/Intake and Output Vital Signs (last 24 hours): Temp Pulse Resp BP Pulse Ox 97.9 F 139 H 20 129/96 H 95 11/04/17 18:00 11/04/17 22:03 11/04/17 18:00 11/04/17 22:03 11/04/17 08:25 - Medications Medications: Current Medications Aspirin (Aspirin Chewable) 81 mg PO DAILY [facility] Atorvastatin Calcium (Lipitor) 20 mg PO DIN [facility] Last Admin: 11/04/17 22:18 Dose: 20 mg Sodium Chloride (Sodium Chloride 0.9%) 1,000 mls @ 100 mls/hr IV .Q10H [facility] Last Admin: 11/04/17 18:53 Dose: 100 mls/hr diltiaZEM IVPB 100mg in NS (Cardizem 100mg In Ns) 100 mls @ 5 mls/hr IV .Q20H [facility] PRN Reason: 5 MG/HR Last Admin: 11/04/17 20:13 Dose: 5 mls/hr Heparin Sodium/Sodium Chloride (Heparin 57039 Units/250ml 1/2 Normal Saline) 25 ,000 units in 250 mls @ 11.104 mls/hr IV .[id number] PRN; Protocol; 18 UNITS/KG/HR PRN Reason: ADJUST RATE PER PROTOCOL Last Admin: 11/05/17 00:42 Dose: 18 units/kg/hr, 11.104 mls/hr Dexmedetomidine HCl (Precedex 400mcg/100ml) 400 mcg in 100 mls @ 3.084 mls/hr IV .Q24H PRN; Protocol; 0.2 MCG/KG/HR PRN Reason: Agitation Last Admin: 11/05/17 04:55 Dose: 0.2 mcg/kg/hr, 3.084 mls/hr Lorazepam (Ativan) 2 mg IVP Q2H PRN; Protocol PRN Reason: Symptoms of alcohol withdrawl Metoprolol Tartrate (Lopressor) 25 mg PO BRKDIN [facility] Ondansetron HCl (Zofran Inj) 4 mg IVP Q4H PRN PRN Reason: Nausea/Vomiting Pantoprazole Sodium (Protonix Inj) 40 mg IVP DAILY [facility] Last Admin: 11/04/17 18:45 Dose: 40 mg Thiamine HCl (Vitamin B1 Tab) 100 mg PO DAILY [facility] - Labs Labs: 11/05/17 05:00 11/05/17 05:00 PT 10.9 SECONDS (9.4-12.5) 11/04/17 23:05 INR 0.96 (0.93-1.08) 11/04/17 23:05 APTT 33.5 Seconds (25.1-36.5) 11/04/17 23:05 - Constitutional Appears: No Acute Distress, Other (sedated on precedex, face-mask @ 9L) - Head Exam Head Exam: ATRAUMATIC, NORMAL INSPECTION, NORMOCEPHALIC - Eye Exam Eye Exam: EOMI, Normal appearance, PERRL. absent: Scleral icterus Pupil Exam: NORMAL ACCOMODATION - ENT Exam ENT Exam: Mucous Membranes Moist - Neck Exam Neck Exam: Full ROM Additional comments: supple - Respiratory Exam Respiratory Exam: Decreased Breath Sounds (bilateral lung bases), Clear to Ausculation Bilateral. absent: Rales, Rhonchi, Wheezes - Cardiovascular Exam Cardiovascular Exam: REGULAR RHYTHM, +S1, +S2 - GI/Abdominal Exam GI & Abdominal Exam: Soft, Normal Bowel Sounds. absent: Guarding, Rigid, Tenderness - Extremities Exam Extremities Exam: Normal Capillary Refill. absent: Calf Tenderness, Pedal Edema , Tenderness - Psychiatric Exam Psychiatric exam: Flat Affect, Normal Mood - Skin Skin Exam: Dry, Warm Assessment and Plan - Assessment and Plan (Free Text) Plan: Mr Diaz, 57M, PMhx of active smoker (2ppd x 40 yrs), EtOh abuse, and substance abuse who was brought in by ambulance after he was found intoxicated in a vehicle by police. BELG[place] 508, initially given 2L IVF, repeat lactate downtrending 5.8-->4.4. Mentation improves yesterday, AAOx3. CT head concerns for multiple foci of gas and parapharyngeal tissues, right side, with dental abscess. He is on zosyn. He developed A-fib RVR, on cardizem gtt. D-Dimer 5210. CTA-chest showedb ilateral PE's, including saddle embolus, with large clot burden and signs of right heart strain. He was upgraded to ICU for heparin gtt. CIWA in place. Pulmonary Embolism, with large clot burden, b/l + saddle, RH strain - stable. Hold IR consult for thrombolysis - Hep gtt per PE protocol - ICU team management - F/U hypercoagulable workup - 2D echo pending official read - Cardio (Dr Easton), ICU (Dr. Wells), Heme (Dr. Sprague) on board Alcohol Intoxication - BELGICA 506 on admission - Banana Bag - CIWA 17 on precedex gtt and face mask 9L - Fall, aspiration and seizure precautions - HOB above 30 degrees Lactic acidosis likely from PE R/O SIRS vs Sepsis Possible source of infection (soft tissue infection R laryngeal vs groundglass consolidation upper lobes vs tooth abscess) - procalc 0.08 - blood Cx neg x 1d - IV Zosyn - Lactate trending down from 5.8 to 4.4 Had R/O Facial Bone Fracture - CT head showed no acute intracranial abnormalities but multiple foci of gas and parapharyngeal tissues most significant on the right side along with findings suspicious for dental abscess - CT Maxillofacial: walled cyst at base of tooth R maxillary ride. No acute fracture - May hold ENT consult GI Prophylaxis: Protonix DVT Prophylaxis: SCD's Diet: HHD, soft s/r/d/w Dr. Rodriguez <Gabby Rodriguez - Last Filed: 11/05/17 11:43> Objective - Vital Signs/Intake and Output Vital Signs (last 24 hours): Temp Pulse Resp BP Pulse Ox 97.9 F 88 20 146/105 H 95 11/04/17 18:00 11/05/17 08:22 11/04/17 18:00 11/05/17 08:22 11/04/17 08:25 Intake and Output: 11/05/17 11/05/17 06:59 18:59 Intake Total 1308 Balance 1308 - Medications Medications: Current Medications Aspirin (Aspirin Chewable) 81 mg PO DAILY [facility] Last Admin: 11/05/17 09:27 Dose: 81 mg Atorvastatin Calcium (Lipitor) 20 mg PO DIN [facility] Last Admin: 11/04/17 22:18 Dose: 20 mg diltiaZEM IVPB 100mg in NS (Cardizem 100mg In Ns) 100 mls @ 5 mls/hr IV .Q20H [facility] PRN Reason: 5 MG/HR Last Admin: 11/04/17 20:13 Dose: 5 mls/hr Heparin Sodium/Sodium Chloride (Heparin 62015 Units/250ml 1/2 Normal Saline) 25 ,000 units in 250 mls @ 11.104 mls/hr IV .[id number] PRN; Protocol; 18 UNITS/KG/HR PRN Reason: ADJUST RATE PER PROTOCOL Last Admin: 11/05/17 00:42 Dose: 18 units/kg/hr, 11.104 mls/hr Dexmedetomidine HCl (Precedex 400mcg/100ml) 400 mcg in 100 mls @ 3.084 mls/hr IV .Q24H PRN; Protocol; 0.2 MCG/KG/HR PRN Reason: Agitation Last Admin: 11/05/17 04:55 Dose: 0.2 mcg/kg/hr, 3.084 mls/hr Folic Acid 1 mg/ Thiamine HCl 100 mg/ Multivitamins/Vitamin C 10 ml/ Dextrose 1 ,011.2 mls @ 100 mls/hr IV .Q10H7M [facility] Last Admin: 11/05/17 10:18 Dose: 100 mls/hr Lorazepam (Ativan) 2 mg IVP Q2H PRN; Protocol PRN Reason: Symptoms of alcohol withdrawl Metoprolol Tartrate (Lopressor) 25 mg PO BRKDIN [facility] Last Admin: 11/05/17 08:22 Dose: 25 mg Ondansetron HCl (Zofran Inj) 4 mg IVP Q4H PRN PRN Reason: Nausea/Vomiting Pantoprazole Sodium (Protonix Inj) 40 mg IVP DAILY [facility] Last Admin: 11/05/17 09:26 Dose: 40 mg Thiamine HCl (Vitamin B1 Tab) 100 mg PO DAILY [facility] - Labs Labs: 11/05/17 05:00 11/05/17 05:00 PT 10.9 SECONDS (9.4-12.5) 11/04/17 23:05 INR 0.96 (0.93-1.08) 11/04/17 23:05 APTT 33.5 Seconds (25.1-36.5) 11/04/17 23:05 Attending/Attestation - Attestation I have personally seen and examined this patient.: Yes I have fully participated in the care of the patient.: Yes I have reviewed all pertinent clinical information, including history, physical exam and plan: Yes Notes (Text): 11/05/17 11:31 57 year old male with past medical history of alcohol abuse, substance abuse and smoker who presented after being found intoxicated with alcohol level of 508. He also has SIR possible sepsis on presentation with tachycardia, elevated lactic acid and leukocytosis. CT head showed multiple foci of gas in parapharyngeal tissues and dental abscess. He was started on antibiotics as admitted to telemetry unit. While on the floor he was found to have afib with rvr and started on cardizem drip. Troponins were also elevated as well as D-dimer, although patient denied any chest pain or shortness of breath. CT angio was done which showed bilateral PE with saddle embolus, large clot burden and signs of right heart strain. He was transferred to ICU and started on heparin drip. Echocardiogram is ordered and hematology evaluation is requested. Consider IR evaluation if any signs of hemodynamic instability. Currently he is stable. Will monitor in ICU. Hypercoagulable workup is ordered. Will follow up with hematology recommendations. He was started on precedex for alcohol withdrawal. He is on banana bag. He was counselled on alcohol cessation. Gabby Rodriguez MD Hospitalist.
[2017-11-05] MEDS: Sodium Chloride 0.9% 1,000 ML IV SCH (08:23)
--- NOTE | 2017-11-05 08:55 | PN ---
DATE: 11/05/2017 SUBJECTIVE: The patient is in bed, in no acute distress, nontoxic. PHYSICAL EXAMINATION: VITAL SIGNS: Temperature is 97, blood pressure is 129/90, respiratory rate of 20. HEENT: Examination of HEENT is unremarkable. NECK: Supple. LUNGS: Have decreased breath sounds. HEART: Normal S1, S2. ABDOMEN: Soft, nontender. LABORATORY DATA: Laboratory examination reveals a white count of 8.7, hemoglobin of 13. BUN of 10, creatinine of 1. Urinalysis is noted and toxicology is noted. Alcohol level of 506. Microbiology reveals the blood cultures are no growth. CAT scan of the chest reveals bilateral pulmonary emboli including the saddle pulmonary embolus. ASSESSMENT AND PLAN: A 57-year-old male, seen in the [facility], bed 6 with systemic inflammatory response syndrome with alcohol intoxication and bilateral pulmonary emboli and saddle pulmonary emboli and must rule out sepsis, questionable acute coronary syndrome with elevated troponin, [id number]. Thus far, the blood cultures are negative and the patient's procalcitonin is 0.08. Urinalysis is negative and the patient's CAT scan of the chest demonstrated bilateral pulmonary saddle emboli. Chest x-ray: No active lung disease. White count is improved to 8.7. No evidence of infection at this point. We will check on the human immunodeficiency virus and we will discontinue the Zosyn. We will follow with you. Robin Lee MD
[2017-11-05] MEDS ORDERED: Enoxaparin 30 mg Syringe SC SCH (10:00)
[2017-11-05] MEDS: Folic Acid 1 MG, Thiamine 100 MG, Multivitamin (MVI) 10 ML in Dextrose 5% In Water 1,00... IV SCH ×2 (10:18→20:15)
--- NOTE | 2017-11-05 11:28 | PN ---
DATE: 11/05/2017 MACHINE STEMMER NOTE. LOCATION: [facility]. SUBJECTIVE: The patient is sleeping, but readily awakened with verbal stimuli. The patient has no complaints of pain, chest pain. No nausea or vomiting. No diarrhea. No abdominal pain. He is on facemask O2 support and at this time is on Precedex as well as heparin drips and Cardene drip as well. PHYSICAL EXAMINATION: VITAL SIGNS: Physical exam note that his temperature is 97.9, his pulse is 88, respirations are 20 and BP is 146/105. SKIN: Warm and dry. HEENT: Head atraumatic, normocephalic. Eyes reactive to light. Ear, nose and throat seemed to be within normal limits. NECK: Supple. No JVD. No thyroid enlargement. No lymph nodes. HEART: Has a regular rate and rhythm. Normal S1, S2. LUNGS: Reveal rare rhonchi at the bases. ABDOMEN: Soft. Decreased bowel sounds. GENITALIA AND RECTAL: Deferred. MUSCULOSKELETAL: No joint deformities. EXTREMITIES: Reveal no significant lower extremity edema. NEUROLOGICALLY: He seemed to be grossly intact. LABORATORY DATA: As far as his laboratories are concerned, his white count is 8.7, hemoglobin is 13.7, hematocrit of 40.4 with platelets of 66,000. The patient's sodium is 142, potassium 3.7, chloride 108, CO2 of 23 with a BUN of 10, creatinine of 1 and a glucose of 111. As far as the patient's CT of the chest reveals, bilateral pulmonary emboli including a saddle embolus. There is a large clot burden and there is associated right heart strain. There are small bilateral pleural effusions as well. IMPRESSION: As far as my impression, this patient has bilateral pulmonary emboli with saddle embolus. He has atrial fibrillation with rapid ventricular response and a myocardial infarction as well. The patient has possible sepsis with lactic acidosis and he has history of ethyl alcohol abuse and is at present in delirium tremens. The patient has a history of chronic obstructive pulmonary disease and is noted to have thrombocytopenia as well. PLAN: As far as our plan, we will continue with Precedex drip as well as a heparin and Cardizem drip as well. The patient is on O2 via face mask. We will follow his oxygen saturations closely. We will continue with aspirin as well as Cardizem and the patient is getting thiamine as well as IV fluids of normal saline. He is on Protonix and his Lopressor as well. He is also getting his Lipitor. We will continue to treat aggressively along with the other consultants and the primary care doctor. Milton Wells MD
--- NOTE | 2017-11-05 12:37 | CARD ---
APPROVED REPORT EKG Measurement Heart [id number] <Conclusion> Atrial fibrillation with rapid ventricular response Nonspecific ST and T wave abnormality, probably digitalis effect Abnormal ECG
--- NOTE | 2017-11-05 12:53 | CARD ---
APPROVED REPORT EKG Measurement Heart [id number] <Conclusion> Atrial fibrillation with rapid ventricular response Nonspecific ST and T wave abnormality, probably digitalis effect Abnormal ECG
--- NOTE | 2017-11-05 14:06 | PN ---
DATE: 11/05/2017 LOCATION: The patient in CCU 129, bed 6. This progress note is being dictated on behalf of Dr. Easton whom I am covering. REASON FOR CONSULTATION: Rapid atrial fibrillation. BRIEF HISTORY: The patient admitted with alcoholic intoxication, was brought by the police to the emergency room. Alcohol level was 546. Initial EKG showed sinus rhythm, then the patient developed atrial fibrillation with rapid rate and the patient converted to sinus rhythm with IV Cardizem. The patient lying flat in bed without any respiratory distress. He is very confused at that moment, but there is no history of chest pain or palpitation. PHYSICAL EXAMINATION: VITAL SIGNS: Blood pressure 129/96, respirations 20, pulse 88, and temperature 97.9. HEENT: Head is normocephalic. Eyes: Pupils normal. Conjunctivae normal. Nose and throat normal. NECK: JVP low. Carotids equal. THORAX: AP diameter normal. LUNGS: Clear. CARDIOVASCULAR: S1 and S2. ABDOMEN: Soft. No tenderness. No organomegaly. Bowel sounds normal. EXTREMITIES: No clubbing. No cyanosis. LABORATORY DATA: WBC 8.7, hemoglobin 13.7, hematocrit 40.4, and platelets 66. On admission, platelet count was 128 and today it is 66. Sodium 142, potassium 3.7. BUN 10, creatinine 1. Troponin 0.57, repeat one 0.52. Bilirubin 2.2. AST 123. CT scan showed bilateral pulmonary emboli including saddle pulmonary embolus, clot burden is large. There is evidence of associated right heart strain, ground glass consolidation in the upper lobe, which could be small bilateral infiltrate versus pulmonary infarcts, small bilateral pleural effusions. DIAGNOSES: Alcoholic intoxication, paroxysmal atrial fibrillation converted to sinus rhythm, bilateral pulmonary embolism, borderline troponin elevation might be related to pulmonary embolism. However, non-ST elevation myocardial infarction cannot be ruled out, thrombocytopenia. PLAN: The patient on aspirin 81 mg daily, the patient getting IV fluids. The patient on Cardizem drip. The patient on heparin drip, Lipitor 20 daily, metoprolol 25 b.i.d., thiamine 100 mg p.o. daily. We will continue present therapy. We will follow with you. Leilani Martinez MD
[2017-11-06] MEDS: Piperacillin/Tazobact 3.375 gm 100 ML IVPB SCH ×3 (00:50→12:32)
[2017-11-06] MEDS: Heparin25000 units/250ml 1/2NS 25,000 UNITS/250 ML BAG IV PRN (01:25)
--- NOTE | 2017-11-06 04:12 | CON ---
DATE: 11/05/2017 This is Tim Diaz's hospital visit in the Intensive Care Unit. This is the consult for Dr. Sprague. CHIEF COMPLAINT: Bilateral pulmonary embolism. HISTORY OF PRESENT ILLNESS: The patient is a 57-year-old male, seen with oxygen on, restrained, in Intensive Care Unit after being admitted by the emergency room for being intoxicated, brought by police after he was ___1:34__ in his car. With this, the patient was evaluated thoroughly in the emergency room with finding significant for acute alcohol intoxication and testing revealed a bilateral pulmonary embolism. With this, the patient is now seen lethargic, but arousable, restrained with IV fluids and anticoagulation with heparin continuing as per Straw Hat Washer Operator's and the attending doctor's recommendations. He is not responsive to questioning with his history gleaned from previous notes as per Straw Hat Washer Operator's findings. ALLERGIES: QUESTIONABLE. POSSIBLY, NO KNOWN ALLERGIES. MEDICATIONS: At present, include aspirin, Ativan, IV fluids, diltiazem, dexmedetomidine, heparin IV, Lipitor, metoprolol, Protonix, thiamine, Zofran, piperacillin-tazobactam. FAMILY HISTORY AND SOCIAL HISTORY: Unable to be obtained. History of EtOH intoxication. His alcohol level was 506. It should be noted that in 09/2013, he had an alcohol level of 438. Otherwise, drug screen was negative. However, there was a suspicion that the patient has smoked marijuana cigarette dipped in formaldehyde? REVIEW OF SYSTEMS: Twelve-point review of systems is unable to be assessed at this time with the patient moving his extremities to command. Also, the patient does report smoking. Otherwise, denies any other history of significance. Since admission, the patient did develop rapid atrial fibrillation, which has been treated with good effect, with elevated troponin, with suspected acute IL also being treated. Patient's other testing included a CAT scan of his head, which was done yesterday. It was reported as the right frontal scalp suggesting a laceration - no acute intracranial hemorrhage, scattered foci with small vessel ischemic disease, mild atrophy, odontogenic cyst or abscess in the right molar area. He had a chest x-ray done with a CT scan of the chest yesterday on 11/04. The CAT scan of the chest was read as bilateral pulmonary emboli including a saddle pulmonary embolus. Clot burden is large. There is evidence of associated right heart strain, areas of ground-glass consolidation in the upper lobe, which could be due to small bowel infiltrates versus pulmonary infarcts, small bilateral pleural effusions. Old fracture of the right humeral head. He had a maxillofacial CT of his face, which was read as no acute signs of right maxillary sinus. Patient's EKG was done yesterday, was read as atrial fibrillation with rapid ventricular response. He had an EKG done afterwards showing atrial fibrillation. No change. Echocardiogram was done, has not been read yet. LABORATORY DATA: On admission, white count of 14.9, hemoglobin is 18.3 with a repeat platelet count of 66,000. PTT of 110. D-dimer of 5210. His chem metabolic panel showed a troponin of 0.57, 0.52 on repeat. His T-bili is 2.2. AST of 123. Urine showed small amount of blood. Toxicology as reported with a blood alcohol of 506. HIV testing was negative. OBJECTIVE/PHYSICAL EXAMINATION: VITAL SIGNS: Temperature 97.9, pulse 80, respirations 21, blood pressure 151/108 with a pulse ox of 98%. HEENT: Unremarkable. Pupils equal, round, reactive to light and accommodation. Oxygen is on. Tongue is dry. NECK: Supple. HEART: Irregularly irregular. LUNGS: Clear. ABDOMEN: Soft, nontender. EXTREMITIES: Moves extremities to command, although they are restrained. Toes wiggle freely. SKIN: Otherwise, warm and dry. NEUROLOGIC: Patient is lethargic, but arousable. Other testing for this patient also included a urine culture, no growth; blood cultures were no growth. ASSESSMENT: The assessment for this patient is that of acute bilateral pulmonary emboli, ethyl alcohol abuse with withdrawal, rapid atrial fibrillation, new acute myocardial infarction, rule out sepsis, rule out impending delirium tremens, chronic obstructive pulmonary disease, smoker, thrombocytopenia secondary to above? PLAN: The plan for this patient after conversation with Dr. Sprague, Dr. Milton Wells and nurses is to continue anticoagulation as above. At the coagulable state, testing was done include antiphospholipid antibody, antithrombin III. We will monitor clinically and with labs. I will recommend to continue present regimen including aspirin with IV heparin with antibiotics prophylactically in the interim. With further recommendations as indicated, we will ask for a manual platelet count to be monitored with the prognosis for this patient guarded. This is a complex patient with a comprehensive medically necessary and appropriate visit carried out in excess of 90 minutes' [id number] time. The patient's testing and chart reviewed with recommendations done as indicated above. The prognosis for this patient is guarded. Jose Lau MD
[2017-11-06 04:41] LABS: ALB/GLOB RATIO 1.1 (1.1-1.8); ALBUMIN 2.8 g/dL (3.0-4.8); ALT/SGPT 47 U/L (7-56); AST/SGOT 69 U/L (17-59); BILIRUBIN,DIRECT 0.3 mg/dL (0.0-0.4); BLOOD UREA NITROGEN 8 mg/dL (7-21); CALCIUM 8.1 mg/dL (8.4-10.5); GFR AFRICAN-AMERICAN > 60; GFR NON-AFRICAN AMERICAN > 60
[2017-11-06 04:43] LABS: BASO # 0.02 K/mm3 (0.0-2.0); BASO % 0.2 % (0.0-3.0); EOS # 0.1 (0.0-0.7); EOS % 1.3 % (1.5-5.0); GRAN # 7.1 (1.4-6.5); GRAN % 66.9 % (50.0-68.0); LYMPH % 18.9 % (22.0-35.0); MEAN CORPUSCULAR HEMOGLOBIN 33.5 pg (25.0-35.0); MEAN CORPUSCULAR HGB CONC 33.5 g/dl (31.0-37.0); MEAN PLATELET VOLUME 10.7 fl (7.0-11.0); MONO # 1.4 (0.1-0.6); MONO % 12.7 % (1.0-6.0); RBC 4.18 10^6/uL (3.5-6.1); RED CELL DISTRIBUTION WIDTH 14.1 % (11.5-14.5); WHITE BLOOD COUNT 10.6 10^3/ul (4.5-11.0)
[2017-11-06 05:34] LABS: TROPONIN I 0.16 ng/mL
[2017-11-06] MEDS ORDERED: Potassium Chloride 20 mEq ER Tab PO STA (06:42)
[2017-11-06] MEDS ORDERED: Magnesium Sulfate 2 GM in Sodium Chloride 0.9% 100 ML IVPB ONE (07:29)
--- NOTE | 2017-11-06 09:12 | CARD ---
APPROVED REPORT EXAM: Two-dimensional and M-mode echocardiogram with Doppler and color Doppler. INDICATION 2D DIMENSIONS IVSd1.2 (0.7-1.1cm)LVDd4.2 (3.9-5.9cm) PWd1.0 (0.7-1.1cm)LVDs3.4 (2.5-4.0cm) FS (%) 19.9 %LVEF (%)41.1 (>50%) M-Mode DIMENSIONS Left Atrium (MM)3.60 (2.5-4.0cm)Aortic Root3.10 (2.2-3.7cm) Aortic Cusp Exc.1.90 (1.5-2.0cm) Aortic Valve AoV Peak Xrlzjsvi58.9cm/Roz Peak GR.4mmHg Mitral Valve MV E Ujiemicd91.0cm/sMV A Lpvexcye90.2cm/sE/A ratio0.6 TDI Lateral E' Peak V7.41cm/sMedial E' Peak V6.71cm/sE/Lateral E'5.3 E/Medial E'5.8 Tricuspid Valve TR Peak Nvxvmhis370md/sRAP [id number] Peak Gr.38mmHg [id number] LEFT VENTRICLE The left ventricle is normal size. There is normal left ventricular wall thickness. The systolic function is mildly impaired.[id number]% There is mild hypokinesis in the apical anterior wall. Transmitral Doppler flow pattern is Grade III-reversible restrictive diastolic dysfunction. No left ventricle thrombus noted on this study. There is no ventricular septal defect visualized. There is no left ventricular aneurysm. There is no mass noted in the left ventricle. RIGHT VENTRICLE The right ventricle is moderately dilated. The right ventricle is mildly hypertrophied. Systolic functionof RV is moderately reduced. ATRIA The left atrium size is normal. The right atrium is moderately dilated. The interatrial septum is intact with no evidence for an atrial septal defect. AORTIC VALVE The aortic valve is moderately thickened. The aortic valve is moderately sclerotic. There is trace aortic regurgitation. There is mild valvular aortic stenosis VS Aortic Sclerosis. There is no aortic valvular vegetation. MITRAL VALVE The mitral valve is thickened but opens well. Mitral regurgitation is trace. There is no mitral valve stenosis. There is no evidence of mitral valve prolapse. TRICUSPID VALVE The tricuspid valve leaflets are thickened , but open well. There is moderate tricuspid regurgitation.RVSP-48 mmofHg There is no tricuspid valve stenosis. There is no tricuspid valve prolapse or vegetation. PULMONIC VALVE The pulmonic valve is borderline thickened. There is moderate pulmonic valvular regurgitation. There is no pulmonic valvular stenosis. GREAT VESSELS The aortic root is normal in size. The ascending aorta is normal in size. The pulmonary artery is normal. The IVC is normal in size and collapses >50% with inspiration. PERICARDIAL EFFUSION There is no pleural effusion. There is no pericardial effusion. <Conclusion> The left ventricle is normal size. There is normal left ventricular wall thickness. There is mild hypokinesis in the apical anterior wall. The right ventricle is moderately dilated. Systolic functionof RV is moderately reduced. There is trace aortic regurgitation. There is mild valvular aortic stenosis VS Aortic Sclerosis. Mitral regurgitation is trace. There is moderate tricuspid regurgitation.RVSP-48 mmofHg The IVC is normal in size and collapses >50% with inspiration. There is no pericardial effusion.
--- NOTE | 2017-11-06 09:14 | PN ---
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 No complaints of nauseousness or vomiting. No abdominal or chest pain. No wheezing or congestion at this time. The patient is on Precedex as well. PHYSICAL EXAMINATION: VITAL SIGNS: Note that his temperature is 98.3, pulse is 95, respirations are 27 and his BP is 126/62. SKIN: Warm and dry. HEENT: Head atraumatic, normocephalic. Eyes reactive to light. Ears, nose and throat seemed to be within normal limits. NECK: Supple. No JVD. No thyroid enlargement or lymph nodes. HEART: Has irregular rate and rhythm. Normal S1, S2. LUNGS: Reveal good breath sounds bilaterally. ABDOMEN: Soft, nontender. Normal bowel sounds. GENITALIA: Deferred. RECTAL: Deferred. MUSCULOSKELETAL: No joint deformities. EXTREMITIES: Reveal trace lower extremity edema. NEUROLOGIC: The patient seems to be grossly intact. DATA: As far as his laboratories are concerned, his white count is 10.6, hemoglobin is 14, hematocrit 41.8 with platelets of 61,000. His sodium is 139, potassium 3.1, chloride 106, CO2 of 22 with a BUN of 8, creatinine of 0.7 and a glucose of 125. The patient's troponin is 0.16 today. IMPRESSION: As far as my impression, the patient has bilateral pulmonary emboli and a saddle embolus. He has atrial fibrillation with rapid ventricular response and myocardial infarction. The patient has a history of ethanol abuse and is in delirium tremors with a history of chronic obstructive pulmonary disease and is noted to have thrombocytopenia. We will continue with his Precedex IV and heparin IV. We will see about the discontinuing the Cardizem drip. The patient is on O2 via face mask and O2 saturation is stable. The patient is on aspirin, thiamine and IV fluids as well as his Protonix and Lopressor. He is also getting Lipitor. We will continue to treat aggressively along with the other consultants and the primary care doctor. Milton Wells MD [facility] # [id number]
[2017-11-06 09:23] LABS: INR 1.14 (0.93-1.08); PROTHROMBIN TIME 13.1 SECONDS (9.4-12.5)
--- NOTE | 2017-11-06 11:32 | CP.PCM.PN ---
<Edmundo Kaiser - Last Filed: 11/06/17 14:39> Subjective - Date & Time of Evaluation Date of Evaluation: 11/06/17 Time of Evaluation: 06:00 - Subjective Subjective: Patient seen and examined bedside. No acute issues overnight. Patient on precedex but awake lethargic. Denies any chest pain, SOB, abdominal pain, or any other complaints at this time. Objective - Vital Signs/Intake and Output Vital Signs (last 24 hours): Temp Pulse Resp BP Pulse Ox 98.3 F 76 40 H 101/81 95 11/06/17 00:01 11/06/17 09:53 11/06/17 07:20 11/06/17 09:53 11/06/17 07:30 Intake and Output: 11/06/17 11/06/17 06:59 18:59 Intake Total 297 Balance 297 - Medications Medications: Current Medications Aspirin (Aspirin Chewable) 81 mg PO DAILY [facility] Last Admin: 11/06/17 09:52 Dose: 81 mg Atorvastatin Calcium (Lipitor) 20 mg PO DIN [facility] Last Admin: 11/05/17 18:00 Dose: 20 mg Diltiazem HCl (Cardizem) 60 mg PO TID [facility] Last Admin: 11/06/17 09:52 Dose: 60 mg Heparin Sodium/Sodium Chloride (Heparin 48421 Units/250ml 1/2 Normal Saline) 25 ,000 units in 250 mls @ 11.104 mls/hr IV .[id number] PRN; Protocol; 18 UNITS/KG/HR PRN Reason: ADJUST RATE PER PROTOCOL Last Titration: 11/06/17 04:30 Dose: 23 units/kg/hr, 14.188 mls/hr Dexmedetomidine HCl (Precedex 400mcg/100ml) 400 mcg in 100 mls @ 3.084 mls/hr IV .Q24H PRN; Protocol; 0.2 MCG/KG/HR PRN Reason: Agitation Last Admin: 11/05/17 22:49 Dose: 0.2 mcg/kg/hr, 3.084 mls/hr Folic Acid 1 mg/ Thiamine HCl 100 mg/ Multivitamins/Vitamin C 10 ml/ Dextrose 1 ,011.2 mls @ 100 mls/hr IV .Q10H7M [facility] Last Admin: 11/05/17 20:15 Dose: 100 mls/hr Piperacillin Sod/Tazobactam Sod (Zosyn 3.375 In Ns 100ml) 100 mls @ 200 mls/hr IVPB Q6 [facility] PRN Reason: Protocol Stop: 11/07/17 12:29 Last Admin: 11/06/17 05:09 Dose: 200 mls/hr Lorazepam (Ativan) 2 mg IVP Q2H PRN; Protocol PRN Reason: Symptoms of alcohol withdrawl Metoprolol Tartrate (Lopressor) 25 mg PO BRKDIN [facility] Last Admin: 11/06/17 09:53 Dose: 25 mg Ondansetron HCl (Zofran Inj) 4 mg IVP Q4H PRN PRN Reason: Nausea/Vomiting Pantoprazole Sodium (Protonix Inj) 40 mg IVP DAILY [facility] Last Admin: 11/06/17 09:54 Dose: 40 mg Thiamine HCl (Vitamin B1 Tab) 100 mg PO DAILY [facility] Last Admin: 11/05/17 11:49 Dose: Not Given - Labs Labs: 11/06/17 04:00 11/06/17 04:00 PT 13.1 SECONDS (9.4-12.5) H 11/06/17 09:00 INR 1.14 (0.93-1.08) H 11/06/17 09:00 APTT 33.0 Seconds (25.1-36.5) 11/06/17 09:00 - Constitutional Appears: Non-toxic, No Acute Distress - Head Exam Head Exam: NORMAL INSPECTION, NORMOCEPHALIC - Eye Exam Eye Exam: Normal appearance, PERRL - ENT Exam ENT Exam: Mucous Membranes Moist - Respiratory Exam Respiratory Exam: Decreased Breath Sounds, Clear to Ausculation Bilateral, NORMAL BREATHING PATTERN - Cardiovascular Exam Cardiovascular Exam: REGULAR RHYTHM, +S1, +S2 - GI/Abdominal Exam GI & Abdominal Exam: Soft. absent: Tenderness - Extremities Exam Extremities Exam: absent: Pedal Edema - Neurological Exam Neurological Exam: Alert, Awake, Oriented x3 Assessment and Plan - Assessment and Plan (Free Text) Assessment: 57M, PMhx of active smoker (2ppd x 40 yrs), EtOh abuse, and substance abuse who was brought in by ambulance after he was found intoxicated in a vehicle by police. BELGICA 508, initially given 2L IVF, repeat lactate downtrending 5.8-->4.4. Mentation improves yesterday, AAOx3. CT head concerns for multiple foci of gas and parapharyngeal tissues, right side, with dental abscess. He is on zosyn. He developed A-fib RVR, on cardizem gtt. D-Dimer 5210. CTA-chest showedb ilateral PE's, including saddle embolus, with large clot burden and signs of right heart strain. He was upgraded to ICU for heparin gtt. CIWA in place. Plan: Pulmonary Embolism, with large clot burden, b/l + saddle, RH strain - stable. Hold IR consult for thrombolysis - transitioned from heparin drip to Lovenox SC - ICU team management - F/U hypercoagulable workup - 2D echo pending official read - Cardio (Dr Easton), ICU (Dr. Wells), Heme (Dr. Sprague) on board - troponin elevated but trending down, cardio aware Afib with RVR - HR now in 70s - DC cardizem drip - PO cardizem - metoprolol Alcohol Intoxication - BELGICA 506 on admission - Banana Bag - CIWA - precedex gtt - Fall, aspiration and seizure precautions - HOB above 30 degrees Lactic acidosis likely from PE R/O SIRS vs Sepsis Possible source of infection (soft tissue infection R laryngeal vs groundglass consolidation upper lobes vs tooth abscess) - procalc 0.08 - blood Cx neg - IV Zosyn Had R/O Facial Bone Fracture - CT head showed no acute intracranial abnormalities but multiple foci of gas and parapharyngeal tissues most significant on the right side along with findings suspicious for dental abscess - CT Maxillofacial: walled cyst at base of tooth R maxillary ride. No acute fracture - May hold ENT consult Thrombocytopenia -Manual platelet count 79 -heme consulted, follow recs -monitor Hypokalemia - K 3.1 - repleted and monitor Hypomagnesia - 1.5 - repleted follow rec GI Prophylaxis: Protonix DVT Prophylaxis: SCD's Diet: HHD, soft <Gabby Rodriguez A - Last Filed: 11/06/17 15:21> Objective - Vital Signs/Intake and Output Vital Signs (last 24 hours): Temp Pulse Resp BP Pulse Ox 98.1 F 81 27 H 104/66 97 11/06/17 12:00 11/06/17 14:00 11/06/17 13:10 11/06/17 14:00 11/06/17 13:10 Intake and Output: 11/06/17 11/06/17 06:59 18:59 Intake Total 297 53 Balance 297 53 - Medications Medications: Current Medications Aspirin (Aspirin Chewable) 81 mg PO DAILY [facility] Last Admin: 11/06/17 09:52 Dose: 81 mg Atorvastatin Calcium (Lipitor) 20 mg PO DIN [facility] Last Admin: 11/05/17 18:00 Dose: 20 mg Diltiazem HCl (Cardizem) 30 mg PO QID [facility] Last Admin: 11/06/17 14:00 Dose: 30 mg Enoxaparin Sodium (Lovenox) 60 mg SC Q12 [facility] PRN Reason: Protocol Last Admin: 11/06/17 12:30 Dose: 60 mg Dexmedetomidine HCl (Precedex 400mcg/100ml) 400 mcg in 100 mls @ 3.084 mls/hr IV .Q24H PRN; Protocol; 0.2 MCG/KG/HR PRN Reason: Agitation Last Admin: 11/05/17 22:49 Dose: 0.2 mcg/kg/hr, 3.084 mls/hr Folic Acid 1 mg/ Thiamine HCl 100 mg/ Multivitamins/Vitamin C 10 ml/ Dextrose 1 ,011.2 mls @ 100 mls/hr IV .Q10H7M [facility] Last Admin: 11/06/17 12:27 Dose: 100 mls/hr Piperacillin Sod/Tazobactam Sod (Zosyn 3.375 In Ns 100ml) 100 mls @ 200 mls/hr IVPB Q6 [facility] PRN Reason: Protocol Stop: 11/07/17 12:29 Last Admin: 11/06/17 12:32 Dose: 200 mls/hr Lorazepam (Ativan) 2 mg IVP Q2H PRN; Protocol PRN Reason: Symptoms of alcohol withdrawl Metoprolol Tartrate (Lopressor) 25 mg PO BRKDIN [facility] Last Admin: 11/06/17 09:53 Dose: 25 mg Ondansetron HCl (Zofran Inj) 4 mg IVP Q4H PRN PRN Reason: Nausea/Vomiting Pantoprazole Sodium (Protonix Inj) 40 mg IVP DAILY [facility] Last Admin: 11/06/17 09:54 Dose: 40 mg Sucralfate (Carafate Oral Susp) 1 gm PO 0600,1600 [facility] Thiamine HCl (Vitamin B1 Tab) 100 mg PO DAILY [facility] Last Admin: 11/05/17 11:49 Dose: Not Given - Labs Labs: 11/06/17 04:00 11/06/17 04:00 PT 13.1 SECONDS (9.4-12.5) H 11/06/17 09:00 INR 1.14 (0.93-1.08) H 11/06/17 09:00 APTT 128.8 Seconds (25.1-36.5) H* 11/06/17 14:20 Attending/Attestation - Attestation I have personally seen and examined this patient.: Yes I have fully participated in the care of the patient.: Yes I have reviewed all pertinent clinical information, including history, physical exam and plan: Yes Notes (Text): 11/06/17 15:14 57 year old male with past medical history of alcohol abuse, substance abuse and smoker who presented after being found intoxicated with alcohol level of 508. He also had SIR possible sepsis on presentation with tachycardia, elevated lactic acid and leukocytosis. CT head showed multiple foci of gas in parapharyngeal tissues and dental abscess. Continue with antibiotics as per ID. He was found to have elevated d-dimer and CT angio showed for bilateral PE with saddle embolus, large clot burden and signs of right heart strain. He was transferred to ICU and started on heparin drip. Hematology is following and recommended to switch to lovenox. Consider IR evaluation if any signs of hemodynamic instability, however currently he is stable. Will continue to monitor in ICU. Hypercoagulable workup is ordered. Will follow up with hematology recommendations. Continue to monitor platelets closely. He had elevated troponins possibly secondary to PE, however cannot rule out NSTEMI. Cardiology is following. Echocardiogram was reviewed. He was started on precedex for alcohol withdrawal. He is on banana bag. He was counselled on alcohol cessation. Gabby Rodriguez MD Hospitalist.
[2017-11-06] MEDS: Folic Acid 1 MG, Thiamine 100 MG, Multivitamin (MVI) 10 ML in Dextrose 5% In Water 1,00... IV SCH (12:27)
[2017-11-06] MEDS: Enoxaparin 60 mg Syringe SC SCH ×2 (12:30→22:03)
[2017-11-06] MEDS ORDERED: Potassium Chloride 20 mEq ER Tab PO ONE (12:47)
--- NOTE | 2017-11-06 16:00 | PN ---
DATE: 11/06/2017 LOCATION: The patient in CCU, bed 129-6. This progress note is being dictated on behalf of Dr. Easton whom I am covering. REASON FOR CONSULTATION: Rapid atrial fibrillation, alcoholic intoxication. BRIEF HISTORY: The patient was admitted with alcohol intoxication, went to atrial fibrillation, which converted to sinus rhythm with IV Cardizem. The patient is lying flat in bed without any respiratory distress. Yesterday, he was very confused. Today, he continues improving. PHYSICAL EXAMINATION: VITAL SIGNS: Blood pressure 101/81, respirations 18, pulse 76, the patient is afebrile. HEENT: Head is normocephalic. Eyes: Pupils normal, conjunctivae normal. Nose and throat normal. NECK: JVP low. Carotids equal. THORAX: AP diameter normal. LUNGS: Clear. CARDIOVASCULAR: S1 and S2. ABDOMEN: Soft. No tenderness. No organomegaly. Bowel sounds normal. EXTREMITIES: No clubbing, no cyanosis. LABORATORY DATA: WBC 10.6, hemoglobin 14, hematocrit 41.8, platelet 61. Sodium 139, potassium 3.1, BUN 8, creatinine 0.6, bilirubin 1.7, AST 69, ALT 47. Troponin first one was 0.52, second one also 0.52, third one 0.16. Total protein and albumin also low. Total protein 5.4, albumin 2.8. DIAGNOSES: Alcoholic intoxication; paroxysmal atrial fibrillation, converted to sinus rhythm; bilateral pulmonary embolism; borderline troponin elevation, might be related to pulmonary embolism; however, [id number] myocardial infarction cannot be ruled out; thrombocytopenia. The patient had echocardiogram yesterday, it showed reduced left ventricular ejection fraction with left ventricular ejection fraction of 41%. Mild pulmonary hypertension with right ventricular systolic pressure 48 mmHg. Right ventricle moderately dilated. Systolic function of right ventricle is moderately reduced. Trace aortic regurgitation. Mild valvular aortic stenosis versus aortic sclerosis. Mitral regurgitation is trace. Moderate tricuspid regurgitation. So the patient has mild alcoholic cardiomyopathy by echocardiogram. PLAN: The patient meeting sinus rhythm, we will stop Cardizem drip and put Cardizem 30 mg p.o. four times daily. The patient is already on Lopressor 25 b.i.d. The patient is also on aspirin 81 mg daily, atorvastatin 20 daily, metoprolol 25 b.i.d. Magnesium still low at 1.5. Magnesium citrate 2 mg IV bolus already ordered by Dr. Rodriguez. The patient received 20 mEq of IV potassium. We will give another by p.o. 40 mEq and repeat labs in the morning. The patient is on Lovenox 60 mg subcu every 12 hours, atorvastatin 20 daily, aspirin 81 daily. Repeat labs already requested for tomorrow and Cardizem drip has been stopped and Cardizem put 30 four times daily. We will follow with you. Leilani Martinez MD
[2017-11-06] MEDS: Sucralfate 1 gm/10 ml Oral Susp UD PO SCH (17:06)
--- NOTE | 2017-11-06 20:10 | PN ---
DATE: 11/06/2017 This is Tim [facility]'s hospital visit on the Intensive Care Unit. For Dr. Sprague. SUBJECTIVE: The patient is a 57-year-old male seen sitting up in chair with one-to-one observation as the patient is known to have significant elevated blood alcohol level of 506 on admission with patient is severely agitated with delirium tremens, being watched for withdrawal from alcohol. With this, the patient was also known to have bilateral pulmonary embolism, saddle pulmonary embolus noted with anticoagulation with heparin recommended along with treatment for his other problems including diltiazem drip for rapid atrial fibrillation with probable new acute myocardial infarction to rule out sepsis. At present, the patient's labs have been monitored with his PTT noted to be subtherapeutic with boluses given; however, after morning shift nurse changed IV sites, a stat PTT was drawn after boluses were given with a value of greater than 400. Heparin was immediately stopped with recommendations as per Dr. Sprague to repeat the PTT value and once it is therapeutic to begin Lovenox 60 mg subcu b.i.d. Otherwise, the patient is sitting up in no acute distress. We will also continue with GI prophylaxis as he does have alcohol abuse history with proton pump inhibitor to continue along with oral Carafate to be started. PHYSICAL EXAMINATION: VITAL SIGNS: Temperature 98.1, pulse 93, respirations 20, blood pressure 95/66, pulse ox of 97%. LABORATORY DATA: White blood cell count of 10.6, hemoglobin of 14, hematocrit of 41.8, platelet count of 61,000 with manual count of 79,000 thought to be secondary to his acute condition. His PTT earlier today was 33 at 9 a.m., at 2:40 a.m. it was 30.1 with the most recent value of greater than 400 at noon time. A value is being done at present. His chem metabolic panel showed a potassium of 3.1 otherwise calcium of 8.1, magnesium of 1.5, T-bili of 1.7 down from 2.2 yesterday with an AST of 69. His troponin, however, remains elevated at 0.1, yesterday was 0.52, followup preceded by 0.57 value. As previously mentioned, his alcohol value on 11/04/2017 was 506. HIV testing was negative. The patient did have an EKG done yesterday, it was read as atrial fibrillation with nonspecific ST-T wave abnormality probably due to , abnormal EKG. He then had an echocardiogram done yesterday. It was read as systolic function RV moderately reduced with no pericardial effusion, mild hypokinesis to the apical anterior wall with ejection fraction of 41.4%. ASSESSMENT: Non-ST elevation myocardial infarction, bilateral pulmonary emboli, ethyl alcohol abuse with withdrawal, rapid atrial fibrillation, rule out sepsis, agitation, rule out delirium tremens, chronic obstructive pulmonary disease, smoker, thrombocytopenia. PLAN: The plan for this patient after conversation with Dr. Sprague and ICU attending and nurses is to check stat PTT value, once the PTT value is therapeutic or below to stop heparin in the interim and to begin Lovenox approximately 2 hours post stop the heparin. Lovenox 60 mg b.i.d., 1 mg/kg b.i.d. will be given as the patient weighs 136 pounds. We will continue this as indicated. We will also begin Carafate liquid 1 g twice a day with continued monitoring of the patient and following medical recommendations as per consultants. This is a complex patient with a comprehensive medically necessary and appropriate visit carried out in excess of 60 minutes [id number] with conversations held with person as named above regarding this patient's care. We will monitor clinically and with labs. Jose Lau MD
[2017-11-07 06:29] LABS: BASO # 0.04 K/mm3 (0.0-2.0); BASO % 0.3 % (0.0-3.0); EOS # 0.2 (0.0-0.7); EOS % 1.7 % (1.5-5.0); GRAN # 7.77 (1.4-6.5); GRAN % 67.1 % (50.0-68.0); HEMOGLOBIN 13.8 g/dL (14.0-18.0); LYMPH # 2.1 (1.2-3.4); MEAN CELL VOLUME 100.7 fl (80.0-105.0); MEAN CORPUSCULAR HEMOGLOBIN 33.5 pg (25.0-35.0); MEAN CORPUSCULAR HGB CONC 33.3 g/dl (31.0-37.0); MEAN PLATELET VOLUME 11.5 fl (7.0-11.0); MONO # 1.5 (0.1-0.6); MONO % 12.9 % (1.0-6.0); RBC 4.12 10^6/uL (3.5-6.1); RED CELL DISTRIBUTION WIDTH 13.9 % (11.5-14.5); WHITE BLOOD COUNT 11.6 10^3/ul (4.5-11.0)
[2017-11-07 06:42] LABS: INR 1.11 (0.93-1.08); PARTIAL THROMBOPLASTIN TIME 36.8 Seconds (25.1-36.5); PROTHROMBIN TIME 12.8 SECONDS (9.4-12.5)
[2017-11-07 07:10] LABS: ALB/GLOB RATIO 1.1 (1.1-1.8); ALBUMIN 2.9 g/dL (3.0-4.8); ALT/SGPT 57 U/L (7-56); AST/SGOT 130 U/L (17-59); BLOOD UREA NITROGEN 8 mg/dL (7-21); CALCIUM 8.1 mg/dL (8.4-10.5); GFR AFRICAN-AMERICAN > 60; GFR NON-AFRICAN AMERICAN > 60
[2017-11-07] MEDS ORDERED: Potassium Chloride 20 mEq ER Tab PO ONE (07:17)
[2017-11-07] MEDS: Sucralfate 1 gm/10 ml Oral Susp UD PO SCH ×2 (08:59→17:25)
[2017-11-07] MEDS: Enoxaparin 60 mg Syringe SC SCH ×2 (09:29→21:13)
--- NOTE | 2017-11-07 10:31 | CP.PCM.PN ---
Subjective - Date & Time of Evaluation Date of Evaluation: 11/07/17 Time of Evaluation: 07:10 - Subjective Subjective: Patient seen and examined, reports no major complaints. Patient is OFF Precedex, currently AAOX3, NAD, doing well. Objective - Vital Signs/Intake and Output Vital Signs (last 24 hours): Temp Pulse Resp BP Pulse Ox 98.7 F 81 30 H 142/100 H 98 11/07/17 09:23 11/07/17 09:30 11/07/17 09:20 11/07/17 09:30 11/07/17 09:20 Intake and Output: 11/07/17 11/07/17 06:59 18:59 Intake Total 594 Output Total 300 Balance 294 - Medications Medications: Current Medications Aspirin (Aspirin Chewable) 81 mg PO DAILY [facility] BEDS AT [facility] Last Admin: 11/06/17 09:52 Dose: 81 mg Atorvastatin Calcium (Lipitor) 20 mg PO DIN COUNTS [facility]CLUDE 234 BEDS AT [facility] Last Admin: 11/06/17 17:07 Dose: 20 mg Diltiazem HCl (Cardizem) 30 mg PO QID [facility]S [facility]CLUDE 234 BEDS AT [facility] Last Admin: 11/07/17 09:30 Dose: 30 mg Enoxaparin Sodium (Lovenox) 60 mg SC Q12 [facility]S [facility]CLUDE 234 BEDS AT [facility] PRN Reason: Protocol Last Admin: 11/07/17 09:29 Dose: 60 mg Lorazepam (Ativan) 2 mg IVP Q2H PRN; Protocol PRN Reason: Symptoms of alcohol withdrawl Metoprolol Tartrate (Lopressor) 25 mg PO BRKDIN COUNTS INCLUDE 234 BEDS AT [facility] Last Admin: 11/07/17 08:59 Dose: 25 mg Ondansetron HCl (Zofran Inj) 4 mg IVP Q4H PRN PRN Reason: Nausea/Vomiting Pantoprazole Sodium (Protonix Inj) 40 mg IVP DAILY [facility] 234 B[facility]S AT [facility] Last Admin: 11/07/17 09:29 Dose: 40 mg Sucralfate (Carafate Oral Susp) 1 gm PO 0600,1600 COUNTS [facility]CLUDE 234 BEDS AT [facility] Last Admin: 11/07/17 08:59 Dose: 1 gm Thiamine HCl (Vitamin B1 Tab) 100 mg PO DAILY [facility] 234 BEDS AT [facility] Last Admin: 11/07/17 09:29 Dose: 100 mg - Labs Labs: 11/07/17 06:00 11/07/17 06:00 PT 12.8 SECONDS (9.4-12.5) H 11/07/17 06:00 INR 1.11 (0.93-1.08) H 11/07/17 06:00 APTT 36.8 Seconds (25.1-36.5) H 11/07/17 06:00 - Constitutional Appears: Non-toxic, No Acute Distress - Head Exam Head Exam: NORMAL INSPECTION - Eye Exam Eye Exam: Normal appearance - ENT Exam ENT Exam: Mucous Membranes Moist - Neck Exam Neck Exam: Full ROM - Respiratory Exam Respiratory Exam: Clear to Ausculation Bilateral, NORMAL BREATHING PATTERN - Cardiovascular Exam Cardiovascular Exam: REGULAR RHYTHM, +S1, +S2 - GI/Abdominal Exam GI & Abdominal Exam: Soft, Normal Bowel Sounds - Extremities Exam Extremities Exam: Normal Inspection - Neurological Exam Neurological Exam: Alert, Awake - Skin Skin Exam: Normal Color, Warm Assessment and Plan - Assessment and Plan (Free Text) Assessment: 57yo male a/w EtOH withdrawal, bilateral PE/DVT EtOH abuse EtOH withdrawal Bilateral PE, saddle embolus DVT Lactic Acidosis, resolved Afib - currently afebrile, HD stable, comfortable in NAD, awake, alert, calm, no active signs of withdrawal, OFF Precedex, sat 97% on 2LNC Recommend: - supp o2 as needed - Duonebs PRN - Lovenox 60mg BID - cardiology follow up - heme onc follow up - rate control, cardizem PO - CIWA protocol - Ativan PRN - MVT, Thiamine, Folic Acid - IVF hydration - replete electrolytes - IV Unasyn - follow up ID - GI ppx - DVT ppx, Lovenox - Stable, transfer to telemetry
--- NOTE | 2017-11-07 12:33 | CP.PCM.PN ---
Addendum entered and electronically signed by Adalberto Dubose DO 11/07/17 14:14 : ENT consult pending IV Zosyn - restarted Original Note: <Adalberto Dubose - Last Filed: 11/07/17 12:12> Subjective - Date & Time of Evaluation Date of Evaluation: 11/07/17 Time of Evaluation: 07:55 - Subjective Subjective: PGY1 Medicine Note for Dr. Portillo Patient seen and examined at bedside this morning. Patient is no longer on precedex drip and is awake and alert. He has no complaints at this time. Denies fevers, chills, nausea, vomiting, diarrhea, constipation, chest pain, shortness of breath or abdominal pain. Objective - Vital Signs/Intake and Output Vital Signs (last 24 hours): Temp Pulse Resp BP Pulse Ox 98.7 F 81 30 H 142/100 H 98 11/07/17 09:23 11/07/17 09:30 11/07/17 09:20 11/07/17 09:30 11/07/17 09:20 Intake and Output: 11/07/17 11/07/17 06:59 18:59 Intake Total 594 Output Total 300 Balance 294 - Medications Medications: Current Medications Aspirin (Aspirin Chewable) 81 mg PO DAILY [facility] Last Admin: 11/06/17 09:52 Dose: 81 mg Atorvastatin Calcium (Lipitor) 20 mg PO DIN [facility] Last Admin: 11/06/17 17:07 Dose: 20 mg Diltiazem HCl (Cardizem) 30 mg PO QID [facility] Last Admin: 11/07/17 09:30 Dose: 30 mg Enoxaparin Sodium (Lovenox) 60 mg SC Q12 [facility] PRN Reason: Protocol Last Admin: 11/07/17 09:29 Dose: 60 mg Lorazepam (Ativan) 2 mg IVP Q2H PRN; Protocol PRN Reason: Symptoms of alcohol withdrawl Metoprolol Tartrate (Lopressor) 25 mg PO BRKDIN [facility] Last Admin: 11/07/17 08:59 Dose: 25 mg Ondansetron HCl (Zofran Inj) 4 mg IVP Q4H PRN PRN Reason: Nausea/Vomiting Pantoprazole Sodium (Protonix Inj) 40 mg IVP DAILY [facility] Last Admin: 11/07/17 09:29 Dose: 40 mg Sucralfate (Carafate Oral Susp) 1 gm PO 0600,1600 [facility] Last Admin: 11/07/17 08:59 Dose: 1 gm Thiamine HCl (Vitamin B1 Tab) 100 mg PO DAILY [facility] Last Admin: 11/07/17 09:29 Dose: 100 mg - Labs Labs: 11/07/17 06:00 11/07/17 06:00 PT 12.8 SECONDS (9.4-12.5) H 11/07/17 06:00 INR 1.11 (0.93-1.08) H 11/07/17 06:00 APTT 36.8 Seconds (25.1-36.5) H 11/07/17 06:00 - Constitutional Appears: Non-toxic, No Acute Distress - Head Exam Head Exam: ATRAUMATIC, NORMOCEPHALIC - Eye Exam Eye Exam: Normal appearance - ENT Exam ENT Exam: Mucous Membranes Moist - Respiratory Exam Respiratory Exam: Decreased Breath Sounds, NORMAL BREATHING PATTERN. absent: Accessory Muscle Use, Respiratory Distress - GI/Abdominal Exam GI & Abdominal Exam: Soft. absent: Distended, Firm, Guarding, Rigid, Tenderness - Extremities Exam Extremities Exam: absent: Calf Tenderness, Pedal Edema - Neurological Exam Neurological Exam: Alert, Awake, Oriented x3 - Psychiatric Exam Psychiatric exam: Normal Affect, Normal Mood - Skin Skin Exam: Dry, Warm Assessment and Plan - Assessment and Plan (Free Text) Assessment: 57M, PMhx of active smoker (2ppd x 40 yrs), EtOh abuse, and substance abuse who was brought in by ambulance after he was found intoxicated in a vehicle by police. [place] 508, initially given 2L IVF, repeat lactate downtrending 5.8-->4.4. Mentation improves yesterday, AAOx3. CT head concerns for multiple foci of gas and parapharyngeal tissues, right side, with dental abscess. He is on zosyn. He developed A-fib RVR, on cardizem gtt. D-Dimer 5210. CTA-chest showedb ilateral PE's, including saddle embolus, with large clot burden and signs of right heart strain. He was upgraded to ICU for heparin gtt. CIWA in place. Plan: Pulmonary Embolism, with large clot burden, b/l + saddle, RH strain - stable. Hold IR consult for thrombolysis - transitioned from heparin drip to Lovenox SC * Will need to discuss with SW and Dr. Sprague as patient does not currently have insurance and is an alcoholic. Patient may be a better candidate for warfarin. - ICU team management - F/U hypercoagulable workup - 2D echo pending official read - Cardio (Dr Easton), ICU (Dr. Wells), Heme (Dr. Sprague) on board - troponin elevated but trending down, cardio aware Afib with RVR - HR now in 70 - 80s - cardizem drip - discontinued - cardizem PO - metoprolol Alcohol Intoxication - BELG[place] 506 on admission - Banana Bag - CIWA - precedex gtt - discontinued * no signs of withdrawal at this time - Fall, aspiration and seizure precautions - HOB above 30 degrees Lactic acidosis likely from PE R/O SIRS vs Sepsis Possible source of infection (soft tissue infection R laryngeal vs groundglass consolidation upper lobes vs tooth abscess) - procalc 0.08 - blood Cx neg - IV Zosyn - discontinued Had R/O Facial Bone Fracture - CT head showed no acute intracranial abnormalities but multiple foci of gas and parapharyngeal tissues most significant on the right side along with findings suspicious for dental abscess - CT Maxillofacial: walled cyst at base of tooth R maxillary ride. No acute fracture - May hold ENT consult Thrombocytopenia -Manual platelet count 89 -heme consulted, follow recs -monitor Hypokalemia - K 3.4 - repleted and monitor Hypomagnesia - resolved - 1.9 - continue to monitor Prophylactic Care GI Prophylaxis: Protonix DVT Prophylaxis: SCD's Diet: HHD, soft Case discussed with Dr. Lindsey Dubose PGY1 <Chuck Portillo - Last Filed: 11/07/17 15:21> Objective - Vital Signs/Intake and Output Vital Signs (last 24 hours): Temp Pulse Resp BP Pulse Ox 98.3 F 87 24 145/108 H 98 11/07/17 12:00 11/07/17 13:00 11/07/17 13:00 11/07/17 13:00 11/07/17 13:00 Intake and Output: 11/07/17 11/07/17 06:59 18:59 Intake Total 594 Output Total 300 Balance 294 - Medications Medications: Current Medications Aspirin (Aspirin Chewable) 81 mg PO DAILY [facility] Last Admin: 11/06/17 09:52 Dose: 81 mg Atorvastatin Calcium (Lipitor) 20 mg PO DIN [facility] Last Admin: 11/06/17 17:07 Dose: 20 mg Diltiazem HCl (Cardizem) 30 mg PO QID [facility] Last Admin: 11/07/17 09:30 Dose: 30 mg Enoxaparin Sodium (Lovenox) 60 mg SC Q12 [facility] PRN Reason: Protocol Last Admin: 11/07/17 09:29 Dose: 60 mg Piperacillin Sod/Tazobactam Sod (Zosyn 3.375 In Ns 100ml) 100 mls @ 200 mls/hr IVPB Q6 [facility] PRN Reason: Protocol Stop: 11/09/17 12:29 Lorazepam (Ativan) 2 mg IVP Q2H PRN; Protocol PRN Reason: Symptoms of alcohol withdrawl Metoprolol Tartrate (Lopressor) 25 mg PO BRKDIN [facility] Last Admin: 11/07/17 08:59 Dose: 25 mg Ondansetron HCl (Zofran Inj) 4 mg IVP Q4H PRN PRN Reason: Nausea/Vomiting Pantoprazole Sodium (Protonix Inj) 40 mg IVP DAILY [facility] Last Admin: 11/07/17 09:29 Dose: 40 mg Sucralfate (Carafate Oral Susp) 1 gm PO 0600,1600 [facility] Last Admin: 11/07/17 08:59 Dose: 1 gm Thiamine HCl (Vitamin B1 Tab) 100 mg PO DAILY [facility] Last Admin: 11/07/17 09:29 Dose: 100 mg - Labs Labs: 11/07/17 06:00 11/07/17 06:00 PT 12.8 SECONDS (9.4-12.5) H 11/07/17 06:00 INR 1.11 (0.93-1.08) H 11/07/17 06:00 APTT 36.8 Seconds (25.1-36.5) H 11/07/17 06:00 Attending/Attestation - Attestation I have personally seen and examined this patient.: Yes I have fully participated in the care of the patient.: Yes I have reviewed all pertinent clinical information, including history, physical exam and plan: Yes Notes (Text): 11/07/17 15:17 Attending note; Patient seen and examined with resident. Patient is a 57 year old male with past medical history of alcohol abuse, substance abuse and smoker who presented after being found intoxicated with alcohol level of 508. Patient had systemic inflammatory response syndrome at the time of admission. CT head showed multiple foci of gas in parapharyngeal tissues and dental abscess. Currently on IV Zosyn. ID evaluation appreciated. Patient is clinically stable. Tolerating diet well. ENT evaluation pending. He was found to have elevated d-dimer and CT angio showed for bilateral PE with saddle embolus, large clot burden and signs of right heart strain. Patient is currently on subcutaneous Lovenox. Might need to start on Coumadin or eliquis upon discharge. Hematology evaluation appreciated. Hypercoagulable workup is ordered. Thrombocytopenia; secondary to alcohol abuse. Platelet count is improving. No active bleeding noted. He had elevated troponins possibly secondary to PE. Cardiology evaluation appreciated. Alcohol abuse; complete alcohol cessation is strongly advised. Precedex drip discontinued. Will discuss with special education case manager for discharge planning. Patient will be referred to [facility] upon discharge. 11/07/17 15:21
--- NOTE | 2017-11-07 12:52 | US ---
HISTORY: Leg pain and swelling. Evaluate for DVT PHYSICIAN(S): Jason Hines MD. TECHNIQUE: Duplex sonography and color-flow Doppler with graded compression were used to evaluate the deep venous systems of both lower extremities. FINDINGS: Subacute thrombus noted in the right popliteal and tibial veins. The right femoral and right common femoral vein are patent and compressible There is occlusive thrombus in the distal left femoral vein, left popliteal vein, and visualized left tibial veins. IMPRESSION: Bilateral lower extremity DVT as described above
--- NOTE | 2017-11-07 12:56 | PN ---
DATE: 11/07/2017 SUBJECTIVE: The patient denies any chest pain or shortness breath. He is currently in sinus rhythm with frequent APCs. PHYSICAL EXAMINATION: VITAL SIGNS: Blood pressure 142/100, heart rate 81, temperature 98.7, respirations 20. HEENT: Normocephalic. CHEST: Bilateral rhonchi. HEART: S1 and S2 regular. ABDOMEN: Soft. EXTREMITIES: No edema. LABORATORY DATA: Hemoglobin and hematocrit 15.8 and 41.7, white count 11.6, platelet count 56,000. SMA-7 today is within normal limits except for potassium of 3.4. Echocardiography study revealed moderate dilated right ventricle with moderately reduced right ventricular systolic function. Mild valvular aortic stenosis versus aortic sclerosis. Ejection fraction estimated at 41%. Venous Doppler of lower extremity official report is still pending, but I was informed that the preliminary report is positive for DVT. Yet the details are not available to me at this time. Chest CT angio revealed bilateral pulmonary emboli including saddle pulmonary embolus with a large clot burden and evidence of right heart strain. Areas of ground-glass consolidation in the upper lobe, which could be due to small bilateral infiltrates versus pulmonary infarct. Small bilateral pleural effusion. ASSESSMENT: 1. Saddle pulmonary embolus. 2. Deep venous thrombosis. 3. Status post alcohol intoxication. 3. Paroxysmal atrial fibrillation. RECOMMENDATIONS: Case was discussed with the log buncher. The patient will be maintained on therapeutic subcutaneous Lovenox for now unless platelet count significantly drops. Argatroban will be initiated then. In view of the patient's very poor compliance and the fact that he does not have any prescription plan to cover for his 6-month treatment of oral anticoagulation, an IVC filter was recommended. Adrien Easton MD
--- NOTE | 2017-11-07 12:58 | PN ---
DATE: 11/07/2017 SUBJECTIVE: The patient is in bed, in no acute distress, nontoxic. He is much better today. He is awake and responsive and communicating. PHYSICAL EXAMINATION: VITAL SIGNS: Temperature is 98, blood pressure is 129/90, respiratory rate of 18, heart rate of 62. HEENT: Examination is unremarkable. NECK: Supple. LUNGS: Have decreased breath sounds. HEART: Normal S1 and S2. ABDOMEN: Soft, nontender. LABORATORY DATA: Reveals a white count of 11,600, hemoglobin of 13, platelets of 56. BUN of 8, creatinine of 0.7. Multiple troponins are elevated. The patient's procalcitonin is 0.08. Urinalysis is noted. HIV is negative. Microbiology reveals nasal MRSA screen is negative. Urine cultures, there are no growth. Blood cultures, there are no growth. Dr. Jose Lau's note is reviewed and Dr. Martinez's progress note is also reviewed. ASSESSMENT AND PLAN: This is a 57-year-old male who was seen early this morning with history of alcoholic intoxication, admitted with bilateral saddle pulmonary emboli with acute coronary syndrome and elevated procalcitonin, non-ST elevation myocardial infarction. The patient had a CAT scan of the head, which demonstrated a multiple foci of gas identified in facial soft tissue and parapharyngeal soft tissue at the level of the nasopharynx, mostly on the right-side, concerned about consistent with odontogenic abscess, tooth abscess, in which right molar tooth extending into the right maxillary sinus, currently on Zosyn. Needs oral surgical and ENT input. We will continue the Zosyn. Robin Lee MD
[2017-11-07] MEDS ORDERED: Albuterol-Ipratrop 3 mg / 0.5 (3 ml) UD IH PRN (15:16)
--- NOTE | 2017-11-07 15:49 | PN ---
DATE: 11/07/2017 This is [place] hospital visit in the Intensive Care Unit. For Dr. Sprague. SUBJECTIVE: The patient is a 57-year-old male, seen sitting up in bed, more alert this visit with the patient informed of his acute situation and treatment that has been given over the past few days. He is now known to have bilateral deep venous thromboses, which have probably precipitated his acute pulmonary embolisms bilateral with saddle pulmonary embolus. He has been treated with heparin and now transitioned to Lovenox with good effect with history of alcohol abuse with blood alcohol level greater than 500 on admission with consideration for withdrawal from alcohol, [place]. He also had episodes of cardiac dysrhythmia, which have also been addressed. He is at present resting comfortably, in no acute distress. OBJECTIVE PHYSICAL EXAMINATION: VITAL SIGNS: Temperature 98.3, pulse 87, respirations 24, blood pressure 124/99, pulse ox 98%. HEENT: Unremarkable. Tongue is moist and midline. NECK: Supple. HEART: Regular rate. Occasional ectopic beat. LUNGS: Clear. ABDOMEN: Soft, nontender. EXTREMITIES: No edema. SKIN: Warm and dry. NEUROLOGIC: Awake and alert this visit. 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 LABORATORY DATA: The patient's labs were done. White blood cell count of 11.6, hemoglobin of 13.8, hematocrit of 41%, platelet count of 56,000 with a manual count of 89,000. His PTT was done after the heparin was discontinued in favor of Lovenox. PTT value yesterday of 128, this morning this is 36.8. INR of 1.1. His chem metabolic panel showed a potassium of 3.4, AST of 130, ALT of 57 with his most recent troponin yesterday of 0.16. As mentioned earlier, his toxicology alcohol level on 11/04/2017 was 506. The patient did have an echocardiogram on 11/05/2017, which showed an ejection fraction of 41%, mild hypokinesis in the apical anterior wall. He did have a Doppler ultrasound of his lower extremities done, which was read from 11/04/2017 as bilateral lower extremity DVT. Microbiology showed negative blood cultures, negative urine culture. ASSESSMENT: The assessment for this patient is that of paroxysmal atrial fibrillation with [id number] myocardial infarction, bilateral pulmonary emboli with saddle embolus, deep venous thrombosis bilateral, severe alcohol intoxication with withdrawals, thrombocytopenia secondary to above, pulmonary hypertension, anticoagulation on Lovenox, hypokalemia, chronic obstructive pulmonary disease, smoker. Rapid atrial fibrillation, controlled. PLAN: The plan for this patient after conversation with Dr. Sprague is agreed to transfer out to telemetry. We will continue anticoagulation with Lovenox. We will also recommend a hypercoagulability workup, which will be sent including antiphospholipid antibody, antithrombin III activity, DRVVT, testing factor V Leiden mutation, factor VIII antigen, homocysteine values, lipoprotein A, protein C activity, protein S antigen total, prothrombin gene analysis along with fibrinogen levels to be done. We will continue the present medical regimen, which includes aspirin and Lovenox with GI prophylaxis with Protonix. The patient is a complex patient with a comprehensive medically necessary and appropriate visit carried out in excess of 25 minutes [id number] time with conversations held with consultants as above and nursing staff as above regarding his care. The patient's questions were answered to his satisfaction with counseling given including recommended followup with Dr. Sprague, Hematology/Oncology after he is eventually discharged. Jose Lau MD
[2017-11-07] MEDS: Piperacillin/Tazobact 3.375 gm 100 ML IVPB SCH ×3 (17:23→23:57)
[2017-11-07] MEDS ORDERED: Piperacillin/Tazobact 3.375 gm 100 ML IVPB SCH (18:00)
[2017-11-08] MEDS: Sucralfate 1 gm/10 ml Oral Susp UD PO SCH ×2 (05:04→16:52)
[2017-11-08] MEDS: Piperacillin/Tazobact 3.375 gm 100 ML IVPB SCH ×3 (05:04→17:53)
[2017-11-08 06:12] LABS: BASO # 0.02 K/mm3 (0.0-2.0); BASO % 0.2 % (0.0-3.0); EOS # 0.1 (0.0-0.7); EOS % 0.5 % (1.5-5.0); GRAN # 9.5 (1.4-6.5); GRAN % 73.8 % (50.0-68.0); HEMOGLOBIN 13.3 g/dL (14.0-18.0); LYMPH # 1.6 (1.2-3.4); LYMPH % 12.6 % (22.0-35.0); MEAN CELL VOLUME 98.2 fl (80.0-105.0); MEAN CORPUSCULAR HEMOGLOBIN 33.7 pg (25.0-35.0); MEAN CORPUSCULAR HGB CONC 34.3 g/dl (31.0-37.0); MEAN PLATELET VOLUME 11.6 fl (7.0-11.0); MONO # 1.7 (0.1-0.6); MONO % 12.9 % (1.0-6.0); RBC 3.95 10^6/uL (3.5-6.1); WHITE BLOOD COUNT 12.9 10^3/ul (4.5-11.0)
[2017-11-08 06:24] LABS: INR 1.12 (0.93-1.08); PROTHROMBIN TIME 12.9 SECONDS (9.4-12.5)
[2017-11-08] MEDS: Pantoprazole 40 mg EC Tab PO SCH (06:37)
[2017-11-08 06:39] LABS: ALBUMIN 2.8 g/dL (3.0-4.8); ALT/SGPT 46 U/L (7-56); AST/SGOT 54 U/L (17-59); BLOOD UREA NITROGEN 7 mg/dL (7-21); GFR AFRICAN-AMERICAN > 60; GFR NON-AFRICAN AMERICAN > 60
[2017-11-08] MEDS ORDERED: Potassium Chloride 20 mEq ER Tab PO ONE (08:53)
--- NOTE | 2017-11-08 09:26 | PN ---
DATE: 11/06/2017 SUBJECTIVE: The patient is in bed in no acute distress this morning, doing better, more responsive and overall uneventful night and no fevers. OBJECTIVE: VITAL SIGNS: On exam, temperature is 98.3, blood pressure is 101/80, respiratory rate of 20, heart rate of 90. HEENT: Examination is unremarkable. NECK: Supple. LUNGS: Have decreased breath sounds. HEART: Normal S1, S2. ABDOMEN: Soft, nontender. DATA: Laboratory examination reveals a white count is 10,000, hemoglobin of 14, platelets of 61. Chemistries reveal a BUN of 8, creatinine of 0.7. Urinalysis is noted and Toxicology is noted. Serology reveals HIV serology is negative and Microbiology reveals the blood cultures are negative. Urine cultures are negative and currently, the patient is on Zosyn, was started by and the patient had a CT scan of the chest, which showed pulmonary emboli. CT scan of the maxillofacial, opacified right maxillary sinus with thin walled cyst at the base of the right maxillary extending to the maxillary sinus. Dr. Wells's report of progress note is reviewed today. He states the patient has bilateral pulmonary emboli with a saddle embolus and atrial fibrillation, rapid ventricular response and myocardial infarction, history of alcohol abuse and DTs, currently COPD with thrombocytopenia. Dr. Jose Lau's note is reviewed. Dr. Martinez's note is reviewed. states that the patient's CT scan of the head shows an odontogenic abscess and gas at the parapharyngeal soft tissue. ASSESSMENT AND PLAN: This is a 57-year-old male with SIRS, systemic inflammatory response syndrome; alcohol intoxication; bilateral pulmonary emboli and saddle emboli with acute coronary syndrome, elevated troponins and cultures, negative procalcitonin with abscess and gas at the parapharyngeal soft tissue levels and is currently on Zosyn. We will follow with you. Robin Lee MD
[2017-11-08] MEDS: Enoxaparin 60 mg Syringe SC SCH ×2 (09:36→21:42)
--- NOTE | 2017-11-08 10:28 | PN ---
DATE: 11/08/2017 FOLLOWUP SUBJECTIVE: The patient denies any dizziness, chest pain or palpitation. PHYSICAL EXAMINATION: VITAL SIGNS: Blood pressure 146/100, heart rate 93, temperature 98.2, respirations 18. HEENT: Normocephalic. CHEST: Clear. HEART: S1 and S2 regular. EXTREMITIES: No edema. LABORATORY DATA: Hemoglobin and hematocrit 13.3 and 38.8, white count 12.9, platelet count improved to 98,000. SMA-7 today is within normal limit except for potassium 3.2. Official report of the venous Doppler of the lower extremity revealed bilateral lower extremity DVT. ASSESSMENT: 1. Bilateral deep venous thrombosis and a saddle pulmonary embolus. 2. Status post alcohol intoxication. 3. Improving thrombocytopenia. 4. Long paroxysmal atrial fibrillation. RECOMMENDATIONS: Continue aspirin 81 mg once a day, Cardizem at 300 mg four times daily, Lopressor 25 mg twice a day, therapeutic subcutaneous Lovenox at 60 mg twice a day, IV Zosyn 3.375 g intravenously every 6 hours. I recommend IVC filter placement in view of the patient's large thrombus burden as well as very poor expected compliance. Adrien Easton MD
--- NOTE | 2017-11-08 13:10 | CP.PCM.PN ---
Subjective - Date & Time of Evaluation Date of Evaluation: 11/08/17 Time of Evaluation: 08:15 - Subjective Subjective: Heme Onc Progress Note for Dr. Sprague Patient was seen and examined at bedside. No acute complaints at this time. Patient is ambulating and as per nursing staff no acute or adverse events overnight. Patient reported BM. Patient denied fever, chills, shortness of breath, chest pains, abdominal pains, nausea, vomiting, diarrhea, constipation. Pt is for acute rehab placement. Objective - Vital Signs/Intake and Output Vital Signs (last 24 hours): Temp Pulse Resp BP Pulse Ox 98.2 F 93 H 18 150/112 H 96 11/08/17 06:00 11/08/17 13:03 11/08/17 06:00 11/08/17 13:03 11/08/17 06:00 Intake and Output: 11/08/17 11/08/17 06:59 18:59 Intake Total 420 Balance 420 - Medications Medications: Current Medications Albuterol/Ipratropium (Duoneb 3 Mg/0.5 Mg (3 Ml) Ud) 3 ml IH [id number] PRN PRN Reason: Wheezing Last Admin: 11/07/17 16:16 Dose: 3 ml Aspirin (Aspirin Chewable) 81 mg PO DAILY [facility] Last Admin: 11/08/17 09:35 Dose: 81 mg Atorvastatin Calcium (Lipitor) 20 mg PO DIN [facility] Last Admin: 11/07/17 17:25 Dose: 20 mg Diltiazem HCl (Cardizem) 30 mg PO QID [facility] Last Admin: 11/08/17 13:03 Dose: 30 mg Enoxaparin Sodium (Lovenox) 60 mg SC Q12 [facility] PRN Reason: Protocol Last Admin: 11/08/17 09:36 Dose: 60 mg Folic Acid (Folic Acid) 1 mg PO DAILY [facility] Last Admin: 11/08/17 09:35 Dose: 1 mg Piperacillin Sod/Tazobactam Sod (Zosyn 3.375 In Ns 100ml) 100 mls @ 200 mls/hr IVPB Q6 [facility] PRN Reason: Protocol Stop: 11/09/17 12:29 Last Admin: 11/08/17 05:04 Dose: 200 mls/hr Lorazepam (Ativan) 2 mg IVP Q2H PRN; Protocol PRN Reason: Symptoms of alcohol withdrawl Metoprolol Tartrate (Lopressor) 25 mg PO BRKDIN [facility] Last Admin: 11/08/17 08:44 Dose: 25 mg Multivitamins/Minerals (Therapeutic-M Tab) 1 tab PO 0800 [facility] Ondansetron HCl (Zofran Inj) 4 mg IVP Q4H PRN PRN Reason: Nausea/Vomiting Pantoprazole Sodium (Protonix Ec Tab) 40 mg PO 0600 [facility] Last Admin: 11/08/17 06:37 Dose: 40 mg Sucralfate (Carafate Oral Susp) 1 gm PO 0600,1600 [facility] Last Admin: 11/08/17 05:04 Dose: 1 gm Thiamine HCl (Vitamin B1 Tab) 100 mg PO DAILY [facility] Last Admin: 11/08/17 09:36 Dose: 100 mg - Labs Labs: 11/08/17 05:30 11/08/17 05:30 PT 12.9 SECONDS (9.4-12.5) H 11/08/17 05:30 INR 1.12 (0.93-1.08) H 11/08/17 05:30 APTT 36.8 Seconds (25.1-36.5) H 11/07/17 06:00 - Constitutional Appears: No Acute Distress - Head Exam Head Exam: ATRAUMATIC, NORMAL INSPECTION, NORMOCEPHALIC - Eye Exam Eye Exam: EOMI, Normal appearance, PERRL Pupil Exam: NORMAL ACCOMODATION, PERRL - ENT Exam ENT Exam: Mucous Membranes Moist, Normal Exam - Respiratory Exam Respiratory Exam: Clear to Ausculation Bilateral, NORMAL BREATHING PATTERN - Cardiovascular Exam Cardiovascular Exam: REGULAR RHYTHM, +S1, +S2. absent: Murmur - GI/Abdominal Exam GI & Abdominal Exam: Soft, Normal Bowel Sounds. absent: Tenderness - Neurological Exam Neurological Exam: Alert, Awake, CN II-XII Intact, Normal Gait, Oriented x3 - Psychiatric Exam Psychiatric exam: Normal Affect, Normal Mood - Skin Skin Exam: Dry, Intact, Normal Color, Warm Assessment and Plan - Assessment and Plan (Free Text) Assessment: 57 M with a PMHx of polysubstance abuse, and an active smoker admitted with bilateral PE's including a saddle embolus on heparin drip now on therapeutic lovenox with 60mg q12 (x6mo) and asa. Patient hypercoaguable workup pending, fu factor Xa activity/mutation. Continue asa, cardizem 300mg QID, lopresor 25mg BID , IV Zosyn. Cardiology consulted Dr. Easton recommended IVC filter. Continue CIWA protocol. GI ppx with protonix.
--- NOTE | 2017-11-08 15:18 | CP.PCM.PN ---
<Adalberto Dubose - Last Filed: 11/08/17 20:04> Subjective - Date & Time of Evaluation Date of Evaluation: 11/08/17 Time of Evaluation: 09:00 - Subjective Subjective: PGY1 Medicine Note for Dr. Portillo Patient seen and examined at bedside this morning. No acute events overnight. Patient states he is doing well and is able to verbalize what medical conditions he has going on currently. He was instructed about his current medications and informed about his need to stop smoking and drinking as they can be very dangerous for him. He responded with stating that this was his one chance to get his life back on track and he will not go back to drinking. He is not experiencing any tremors. Denies fevers, chills, nausea, vomiting, diarrhea , constipation, chest pain, shortness of breath, abdominal pain, Objective - Vital Signs/Intake and Output Vital Signs (last 24 hours): Temp Pulse Resp BP Pulse Ox 98.5 F 93 H 17 150/112 H 96 11/08/17 12:00 11/08/17 13:03 11/08/17 12:00 11/08/17 13:03 11/08/17 06:00 Intake and Output: 11/08/17 11/08/17 06:59 18:59 Intake Total 420 Balance 420 - Medications Medications: Current Medications Albuterol/Ipratropium (Duoneb 3 Mg/0.5 Mg (3 Ml) Ud) 3 ml IH [id number] PRN PRN Reason: Wheezing Last Admin: 11/07/17 16:16 Dose: 3 ml Aspirin (Aspirin Chewable) 81 mg PO DAILY [facility] Last Admin: 11/08/17 09:35 Dose: 81 mg Atorvastatin Calcium (Lipitor) 20 mg PO DIN [facility] Last Admin: 11/07/17 17:25 Dose: 20 mg Diltiazem HCl (Cardizem) 30 mg PO QID [facility] Last Admin: 11/08/17 13:03 Dose: 30 mg Enoxaparin Sodium (Lovenox) 60 mg SC Q12H REBEKAH PRN Reason: Protocol Folic Acid (Folic Acid) 1 mg PO DAILY [facility] Last Admin: 11/08/17 09:35 Dose: 1 mg Piperacillin Sod/Tazobactam Sod (Zosyn 3.375 In Ns 100ml) 100 mls @ 200 mls/hr IVPB Q6 REBEKAH PRN Reason: Protocol Stop: 11/09/17 12:29 Last Admin: 11/08/17 13:07 Dose: 200 mls/hr Lorazepam (Ativan) 2 mg IVP Q2H PRN; Protocol PRN Reason: Symptoms of alcohol withdrawl Metoprolol Tartrate (Lopressor) 25 mg PO BRKDIN [facility] Last Admin: 11/08/17 08:44 Dose: 25 mg Multivitamins/Minerals (Therapeutic-M Tab) 1 tab PO 0800 [facility] Ondansetron HCl (Zofran Inj) 4 mg IVP Q4H PRN PRN Reason: Nausea/Vomiting Pantoprazole Sodium (Protonix Ec Tab) 40 mg PO 0600 [facility] Last Admin: 11/08/17 06:37 Dose: 40 mg Sucralfate (Carafate Oral Susp) 1 gm PO 0600,1600 [facility] Last Admin: 11/08/17 05:04 Dose: 1 gm Thiamine HCl (Vitamin B1 Tab) 100 mg PO DAILY [facility] Last Admin: 11/08/17 09:36 Dose: 100 mg Warfarin Sodium (Coumadin) 5 mg PO 1800 [facility] PRN Reason: Protocol - Labs Labs: 11/08/17 05:30 11/08/17 05:30 PT 12.9 SECONDS (9.4-12.5) H 11/08/17 05:30 INR 1.12 (0.93-1.08) H 11/08/17 05:30 APTT 36.8 Seconds (25.1-36.5) H 11/07/17 06:00 - Constitutional Appears: Non-toxic, No Acute Distress - Head Exam Head Exam: ATRAUMATIC, NORMOCEPHALIC - Eye Exam Eye Exam: EOMI - ENT Exam ENT Exam: Mucous Membranes Moist - Neck Exam Neck Exam: absent: Lymphadenopathy - Respiratory Exam Respiratory Exam: Decreased Breath Sounds, NORMAL BREATHING PATTERN. absent: Accessory Muscle Use, Rales, Rhonchi, Wheezes, Respiratory Distress - Cardiovascular Exam Cardiovascular Exam: REGULAR RHYTHM, +S1, +S2 - GI/Abdominal Exam GI & Abdominal Exam: Soft. absent: Distended, Firm, Guarding, Rigid - Extremities Exam Extremities Exam: Normal Inspection. absent: Calf Tenderness, Pedal Edema, Tenderness - Neurological Exam Neurological Exam: Alert, Awake, CN II-XII Intact, Oriented x3 - Psychiatric Exam Psychiatric exam: Normal Affect, Normal Mood - Skin Skin Exam: Dry, Warm Assessment and Plan - Assessment and Plan (Free Text) Assessment: 57M, PMhx of active smoker (2ppd x 40 yrs), EtOh abuse, and substance abuse who was brought in by ambulance after he was found intoxicated in a vehicle by police. BELGICA 508, initially given 2L IVF, repeat lactate downtrending 5.8-->4.4. Mentation improves yesterday, AAOx3. CT head concerns for multiple foci of gas and parapharyngeal tissues, right side, with dental abscess. He is on zosyn. He developed A-fib RVR, on cardizem gtt. D-Dimer 5210. CTA-chest showedb ilateral PE's, including saddle embolus, with large clot burden and signs of right heart strain. He was upgraded to ICU for heparin gtt. CIWA in place. Plan: Pulmonary Embolism, with large clot burden, b/l + saddle, RH strain - stable. Hold IR consult for thrombolysis - Lovenox 60mg SC q12h * Will start to transition to coumadin, start with coumadin 5mg PO daily * f/u INR - F/U hypercoagulable workup - 2D echo - LVEF ~41%,mild hypokinesis in the apical anterior wall. RV moderately dilated, systolic function of RV is moderately reduced, trace MR, moderate TR, no pericardial effusion. - Cardio (Dr Easton) * Cardio recommends IVC filter due to large clot burden and poor expected compliance. - Heme (Dr. Sprague) on board * f/u hypercoag work up - troponin elevated but trending down, cardio aware Afib with RVR - HR now in 80 - 90s - cardizem PO - metoprolol Alcohol Intoxication - BELGICA 506 on admission - Thiamine, Multivitamin and Folic Acid - CIWA - precedex gtt - discontinued * no signs of withdrawal at this time - Fall, aspiration and seizure precautions - HOB above 30 degrees Lactic acidosis likely from PE R/O SIRS vs Sepsis Possible source of infection (soft tissue infection R laryngeal vs groundglass consolidation upper lobes vs tooth abscess) - procalc 0.08 - blood Cx neg - continue IV Zosyn Had R/O Facial Bone Fracture - CT head showed no acute intracranial abnormalities but multiple foci of gas and parapharyngeal tissues most significant on the right side along with findings suspicious for dental abscess - CT Maxillofacial: walled cyst at base of tooth R maxillary ride. No acute fracture - ENT consulted, follow up recs * Per ENT, patient to follow up with dental clinic at [facility] upon discharge. * ENT gave patient information. Thrombocytopenia -Manual platelet count 129 -heme consulted, follow recs -monitor Hypokalemia - K 3.2 - repleted and monitor Hypomagnesia - resolved - 1.7 - continue to monitor Prophylactic Care GI Prophylaxis: Protonix DVT Prophylaxis: SCD's Diet: HHD, soft Case discussed with Dr. Lindsey Glover Sedrick PGY1 <Chuck Portillo - Last Filed: 11/09/17 14:17> Objective - Vital Signs/Intake and Output Vital Signs (last 24 hours): Temp Pulse Resp BP Pulse Ox 97.9 F 82 18 149/100 H 100 11/08/17 18:00 11/09/17 09:00 11/09/17 09:00 11/09/17 09:00 11/09/17 08:00 Intake and Output: 11/09/17 11/09/17 06:59 18:59 Intake Total 600 Balance 600 - Medications Medications: Current Medications Albuterol/Ipratropium (Duoneb 3 Mg/0.5 Mg (3 Ml) Ud) 3 ml IH [id number] PRN PRN Reason: Wheezing Last Admin: 11/07/17 16:16 Dose: 3 ml Aspirin (Aspirin Chewable) 81 mg PO DAILY [facility] Last Admin: 11/09/17 09:00 Dose: 81 mg Atorvastatin Calcium (Lipitor) 20 mg PO DIN [facility] Last Admin: 11/08/17 17:45 Dose: 20 mg Diltiazem HCl (Cardizem) 30 mg PO QID [facility] Last Admin: 11/09/17 09:00 Dose: 30 mg Enoxaparin Sodium (Lovenox) 60 mg SC Q12H REBEKAH PRN Reason: Protocol Last Admin: 11/09/17 09:01 Dose: 60 mg Folic Acid (Folic Acid) 1 mg PO DAILY [facility] Last Admin: 11/09/17 09:00 Dose: 1 mg Hydralazine HCl (Apresoline) 10 mg IVP Q6H PRN PRN Reason: SBP>160 Piperacillin Sod/Tazobactam Sod (Zosyn 3.375 In Ns 100ml) 100 mls @ 200 mls/hr IVPB Q6 REBEKAH PRN Reason: Protocol Stop: 11/11/17 18:01 Last Admin: 11/09/17 12:25 Dose: 200 mls/hr Lisinopril (Zestril) 5 mg PO DAILY [facility] Last Admin: 11/09/17 09:00 Dose: 5 mg Lorazepam (Ativan) 2 mg IVP Q2H PRN; Protocol PRN Reason: Symptoms of alcohol withdrawl Metoprolol Tartrate (Lopressor) 50 mg PO BRKDIN [facility] Last Admin: 11/09/17 08:00 Dose: 50 mg Multivitamins/Minerals (Therapeutic-M Tab) 1 tab PO 0800 [facility] Last Admin: 11/09/17 08:00 Dose: 1 tab Ondansetron HCl (Zofran Inj) 4 mg IVP Q4H PRN PRN Reason: Nausea/Vomiting Pantoprazole Sodium (Protonix Ec Tab) 40 mg PO 0600 [facility] Last Admin: 11/09/17 06:22 Dose: 40 mg Sucralfate (Carafate Oral Susp) 1 gm PO 0600,1600 [facility] Last Admin: 11/09/17 06:22 Dose: 1 gm Thiamine HCl (Vitamin B1 Tab) 100 mg PO DAILY [facility] Last Admin: 11/09/17 09:04 Dose: 100 mg Warfarin Sodium (Coumadin) 5 mg PO 1800 [facility] PRN Reason: Protocol Last Admin: 11/08/17 17:45 Dose: 5 mg - Labs Labs: 11/08/17 05:30 11/09/17 06:30 PT 12.8 SECONDS (9.4-12.5) H 11/09/17 06:30 INR 1.11 (0.93-1.08) H 11/09/17 06:30 APTT 36.8 Seconds (25.1-36.5) H 11/07/17 06:00 Attending/Attestation - Attestation I have personally seen and examined this patient.: Yes I have fully participated in the care of the patient.: Yes I have reviewed all pertinent clinical information, including history, physical exam and plan: Yes Notes (Text): 11/09/17 14:12 Attending note; Patient seen and examined with resident. Patient is a 57 year old male with past medical history of alcohol abuse, substance abuse and smoker who presented after being found intoxicated with alcohol level of 508. Patient had systemic inflammatory response syndrome at the time of admission. CT head showed multiple foci of gas in parapharyngeal tissues and dental abscess. Currently on IV Zosyn. ID evaluation appreciated. Patient is clinically stable. Tolerating diet well. No acute findings now. Needs outpatient dental evaluation. ENT evaluation pending. He was found to have elevated d-dimer and CT angio showed for bilateral PE with saddle embolus, large clot burden and signs of right heart strain. Patient is currently on subcutaneous Lovenox. We'll start coumadin. Hematology evaluation appreciated. Hypercoagulable workup is pending. Thrombocytopenia; secondary to alcohol abuse. Platelet count is improving. No active bleeding noted. He had elevated troponins possibly secondary to PE. Cardiology evaluation appreciated. Alcohol abuse; complete alcohol cessation is strongly advised. Patient is currently alert and awake. Understood the diagnosis of acute PE and DVT. Agreed to stop alcohol abuse. benefits Side effects of Coumadin explained to him in detail. 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 Patient will be referred to [facility] clinic upon discharge.
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
[2017-11-08] MEDS ORDERED: EnalaprilAT 1.25 mg/ml Inj IVP PRN (20:21)
--- NOTE | 2017-11-08 22:10 | PN ---
DATE: 11/08/2017 SUBJECTIVE: The patient is in bed, in no acute distress, nontoxic. PHYSICAL EXAMINATION: VITAL SIGNS: Temperature is 98, blood pressure is 160/100, respiratory rate of 18, heart rate of 91. HEENT: Unremarkable. NECK: Supple. LUNGS: Have decreased breath sounds. HEART: Normal S1 and S2. ABDOMEN: Soft, nontender. LABORATORY EXAMINATION: Reveals a white count of 12,900, hemoglobin of 13, platelets of 98. BUN of 7, creatinine of 0.8. Urinalysis is noted and serology is negative for HIV. Review of orders reveals the patient is on Zosyn. progress note is reviewed. Dr. Selwyn Carrera's progress note is reviewed. progress note is reviewed from yesterday. ASSESSMENT AND PLAN: This is a 57-year-old male, seen earlier today in [facility], bed 1 with history of alcoholism and admitted with alcoholic intoxication and bilateral saddle pulmonary emboli with acute coronary syndrome with elevated procalcitonin and non-ST elevation myocardial infarction. He had a CAT scan of the head, which demonstrated a multiple foci of gas identified in facial soft tissue and parapharyngeal soft tissue abscess, concerned about odontogenic abscess and tooth abscess, currently on Zosyn. We will need oral surgical and ENT input. Upon discharge, may use p.o. Augmentin. The patient is doing well and pending oral surgical including ENT input regarding the CAT scan findings of the possible tooth abscess and air. Robin Lee MD
[2017-11-09] MEDS: Pantoprazole 40 mg EC Tab PO SCH (06:22)
[2017-11-09] MEDS: Sucralfate 1 gm/10 ml Oral Susp UD PO SCH ×2 (06:22→16:21)
[2017-11-09] MEDS: Piperacillin/Tazobact 3.375 gm 100 ML IVPB SCH ×4 (06:24→17:32)
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
[2017-11-09 07:30] LABS: INR 1.11 (0.93-1.08); PROTHROMBIN TIME 12.8 SECONDS (9.4-12.5)
[2017-11-09 07:38] LABS: ALB/GLOB RATIO 1.1 (1.1-1.8); ALBUMIN 3.3 g/dL (3.0-4.8); ALT/SGPT 39 U/L (7-56); AST/SGOT 37 U/L (17-59); BLOOD UREA NITROGEN 6 mg/dL (7-21); CALCIUM 8.6 mg/dL (8.4-10.5); GFR AFRICAN-AMERICAN > 60; GFR NON-AFRICAN AMERICAN > 60
[2017-11-09 07:56] LABS: CARDIOLIPIN AB (IGA) <11 APL (<=11); CARDIOLIPIN AB (IGG) <14 GPL (<=14); CARDIOLIPIN AB (IGM) 17 MPL (<=12); PHOSPHATIDYLSERINE AB IGG <10 U/mL (<10); PHOSPHATIDYLSERINE AB IGM <25 U/mL (<25)
[2017-11-09] MEDS: Multivitamin With Minerals Tab PO SCH (08:00)
[2017-11-09] MEDS: Enoxaparin 60 mg Syringe SC SCH ×2 (09:01→21:41)
[2017-11-09] MEDS ORDERED: Potassium Chloride 20 mEq ER Tab PO ONE (09:06)
--- NOTE | 2017-11-09 12:39 | PN ---
DATE: 11/09/2017 SUBJECTIVE: The patient denies any chest pain or shortness of breath at this time. PHYSICAL EXAMINATION: VITAL SIGNS: Blood pressure 149/100, heart rate 82, respiration 18, temperature 97.9. HEENT: Normocephalic. CHEST: Clear. HEART: S1 and S2 regular. EXTREMITIES: No edema. LABORATORY DATA: Today's SMA-7 is within normal limits except for potassium 3.3 and BUN of 6. Today's INR is 1.11. ASSESSMENT: 1. Bilateral deep vein thrombosis and central pulmonary embolism. 2. Uncontrolled hypertension. CONDITIONS: Case was discussed with the medical team. The patient was not considered a candidate for IVC filter placement. Continue Cardizem at 30 mg q.i.d., aspirin 81 mg once a day, Coumadin was started yesterday at 5 mg. Continue Lopressor 50 mg twice a day, therapeutic subcutaneous Lovenox to 60 mg twice a day, Zestril 5 mg once a day, Zosyn 3.375 intravenously every 6 hours. Adrien Easton MD
--- NOTE | 2017-11-09 16:41 | CP.PCM.PN ---
Subjective - Date & Time of Evaluation Date of Evaluation: 11/09/17 Time of Evaluation: 09:50 - Subjective Subjective: Patient has no fevers, no pain in the mouth, eating ok, no diarrhea, no SOB at rest, no headaches. Objective - Vital Signs/Intake and Output Vital Signs (last 24 hours): Temp Pulse Resp BP Pulse Ox 97.9 F 82 18 149/100 H 100 11/08/17 18:00 11/09/17 09:00 11/09/17 08:00 11/09/17 09:00 11/09/17 08:00 Intake and Output: 11/09/17 11/09/17 06:59 18:59 Intake Total 600 Balance 600 - Medications Medications: Current Medications Albuterol/Ipratropium (Duoneb 3 Mg/0.5 Mg (3 Ml) Ud) 3 ml IH [id number] PRN PRN Reason: Wheezing Last Admin: 11/07/17 16:16 Dose: 3 ml Aspirin (Aspirin Chewable) 81 mg PO DAILY [facility] Last Admin: 11/09/17 09:00 Dose: 81 mg Atorvastatin Calcium (Lipitor) 20 mg PO DIN [facility] Last Admin: 11/08/17 17:45 Dose: 20 mg Diltiazem HCl (Cardizem) 30 mg PO QID [facility] Last Admin: 11/09/17 09:00 Dose: 30 mg Enoxaparin Sodium (Lovenox) 60 mg SC Q12H [facility] PRN Reason: Protocol Last Admin: 11/09/17 09:01 Dose: 60 mg Folic Acid (Folic Acid) 1 mg PO DAILY [facility] Last Admin: 11/09/17 09:00 Dose: 1 mg Piperacillin Sod/Tazobactam Sod (Zosyn 3.375 In Ns 100ml) 100 mls @ 200 mls/hr IVPB Q6 [facility] PRN Reason: Protocol Stop: 11/11/17 18:01 Last Admin: 11/09/17 06:24 Dose: 200 mls/hr Lisinopril (Zestril) 5 mg PO DAILY [facility] Last Admin: 11/09/17 09:00 Dose: 5 mg Lorazepam (Ativan) 2 mg IVP Q2H PRN; Protocol PRN Reason: Symptoms of alcohol withdrawl Metoprolol Tartrate (Lopressor) 50 mg PO BRKDIN [facility] Last Admin: 11/09/17 08:00 Dose: 50 mg Multivitamins/Minerals (Therapeutic-M Tab) 1 tab PO 0800 [facility] Last Admin: 11/09/17 08:00 Dose: 1 tab Ondansetron HCl (Zofran Inj) 4 mg IVP Q4H PRN PRN Reason: Nausea/Vomiting Pantoprazole Sodium (Protonix Ec Tab) 40 mg PO 0600 [facility] Last Admin: 11/09/17 06:22 Dose: 40 mg Sucralfate (Carafate Oral Susp) 1 gm PO 0600,1600 [facility] Last Admin: 11/09/17 06:22 Dose: 1 gm Thiamine HCl (Vitamin B1 Tab) 100 mg PO DAILY [facility] Last Admin: 11/08/17 09:36 Dose: 100 mg Warfarin Sodium (Coumadin) 5 mg PO 1800 [facility] PRN Reason: Protocol Last Admin: 11/08/17 17:45 Dose: 5 mg - Labs Labs: 11/08/17 05:30 11/09/17 06:30 PT 12.8 SECONDS (9.4-12.5) H 11/09/17 06:30 INR 1.11 (0.93-1.08) H 11/09/17 06:30 APTT 36.8 Seconds (25.1-36.5) H 11/07/17 06:00 - Constitutional Appears: Non-toxic, Chronically Ill - Head Exam Head Exam: NORMAL INSPECTION - ENT Exam ENT Exam: Mucous Membranes Moist - Neck Exam Neck Exam: absent: Meningismus - Respiratory Exam Respiratory Exam: Decreased Breath Sounds - Cardiovascular Exam Cardiovascular Exam: +S1, +S2 - GI/Abdominal Exam GI & Abdominal Exam: Soft. absent: Tenderness Assessment and Plan - Assessment and Plan (Free Text) Plan: Assessment S/Pystemic Inflammatory response syndrome, consider due to alcohol intoxication, pharyngeal infection R/O odontogenic abscess in a patient with chronic sinusitis Plan continue Zosyn and patient will need to see a dentist; patient may be switched to PO Augmentin until the patient sees the dentist will monitor clinically while the patient is in the hospital
[2017-11-10] MEDS: Piperacillin/Tazobact 3.375 gm 100 ML IVPB SCH ×5 (00:26→23:40)
--- NOTE | 2017-11-10 02:33 | PN ---
DATE: 11/09/2017 This is [facility]'s hospital visit on the telemetry floor. For Dr. Sprague. SUBJECTIVE: The patient is a 57-year-old male now sitting up in bed, aware of his most recent events necessitating his intensive care admission, with the patient withdrawing from alcohol and known to have bilateral pulmonary emboli with DVT. With this, the patient is now in no acute distress, resting comfortably, reporting that he will not drink anymore as this has convinced him that it is necessary to stop the smoking and his drinking. He is otherwise in no acute distress. PHYSICAL EXAMINATION: VITAL SIGNS: Temperature 98.7, pulse 87, respirations 19, blood pressure 152/104, with a pulse ox of 100%. HEENT: Unremarkable. NECK: Supple. HEART: Regular rate. LUNGS: Clear. ABDOMEN: Soft and nontender. EXTREMITIES: No edema. SKIN: Warm and dry. NEUROLOGIC: He appears agitated, with being alert, awake and oriented x3. LABORATORY DATA: The patient's labs were done from yesterday; white blood cell count of 12.9, hemoglobin 13.3, hematocrit of 38.8, and platelet count of 98,000, with a manual count of 129,000, with a chem metabolic panel from today showing a potassium of 3.3, which is to be corrected; otherwise, normal chem metabolic panel. Yesterday's INR was 1.11; however, he is now started on Lovenox. ASSESSMENT: For this patient is that of bilateral pulmonary emboli, deep venous thrombosis bilateral, rule out hypercoagulable state, paroxysmal atrial fibrillation with non-ST elevated myocardial infarction, severe alcohol intoxication with withdrawal, thrombocytopenia secondary to above, pulmonary hypertension, anticoagulation on Lovenox, hypokalemia, chronic obstructive pulmonary disease, smoker. PLAN: The plan for this patient after conversation with Dr. Sprague is to continue his present medical regimen. We will replenish his electrolytes as per his primary doctor with his hypercoagulable testing pending. Prognosis for this patient is guarded. We will monitor clinically and with labs. There is no acute bleeding, with no petechiae noted . This is a complex patient with a comprehensive medically necessary and appropriate visit, carried out in excess of 20 minutes of [id number] time with this patient. Questions were answered to his satisfaction. Jose Lau MD
[2017-11-10 05:10] LABS: B2 GLYCOPROTEIN I AB(IGA) <9 SAU (<=20); B2 GLYCOPROTEIN I AB(IGG) <9 SGU (<=20); B2 GLYCOPROTEIN I AB(IGM) <9 SMU (<=20); PHOSPHATIDYLSERINE AB IGA <20 U/mL (<20)
[2017-11-10] MEDS: Sucralfate 1 gm/10 ml Oral Susp UD PO SCH ×2 (05:14→17:23)
[2017-11-10] MEDS: Pantoprazole 40 mg EC Tab PO SCH (05:14)
[2017-11-10 07:06] LABS: BASO # 0.03 K/mm3 (0.0-2.0); BASO % 0.3 % (0.0-3.0); EOS # 0.2 (0.0-0.7); EOS % 2.1 % (1.5-5.0); GRAN # 6.66 (1.4-6.5); GRAN % 61.1 % (50.0-68.0); LYMPH # 1.6 (1.2-3.4); LYMPH % 14.8 % (22.0-35.0); MEAN CELL VOLUME 97.7 fl (80.0-105.0); MEAN CORPUSCULAR HEMOGLOBIN 33.2 pg (25.0-35.0); MEAN CORPUSCULAR HGB CONC 33.9 g/dl (31.0-37.0); MEAN PLATELET VOLUME 10.9 fl (7.0-11.0); MONO # 2.4 (0.1-0.6); MONO % 21.7 % (1.0-6.0); PLATELET COUNT 178 10^3/uL (120.0-450.0); RBC 3.92 10^6/uL (3.5-6.1); RED CELL DISTRIBUTION WIDTH 13.7 % (11.5-14.5); WHITE BLOOD COUNT 10.9 10^3/ul (4.5-11.0)
[2017-11-10 07:21] LABS: INR 1.2 (0.93-1.08); PROTHROMBIN TIME 13.8 SECONDS (9.4-12.5)
[2017-11-10 07:30] LABS: ALB/GLOB RATIO 1.1 (1.1-1.8); ALBUMIN 3.1 g/dL (3.0-4.8); ALT/SGPT 33 U/L (7-56); AST/SGOT 30 U/L (17-59); BLOOD UREA NITROGEN 6 mg/dL (7-21); CALCIUM 8.3 mg/dL (8.4-10.5); GFR AFRICAN-AMERICAN > 60; GFR NON-AFRICAN AMERICAN > 60
[2017-11-10 07:54] LABS: BASOPHIL 1 % (0.0-1.0); EOSINOPHIL 2 % (0.0-3.0); LYMPHOCYTE 16 % (22.0-35.0); MONOCYTE 14 % (1.0-6.0); NEUTROPHIL 67 % (50.0-70.0)
[2017-11-10 07:55] LABS: PLATELET ESTIMATE NORMAL (NORMAL)
[2017-11-10] MEDS: Multivitamin With Minerals Tab PO SCH (08:36)
[2017-11-10] MEDS: Enoxaparin 60 mg Syringe SC SCH ×2 (09:09→22:14)
--- NOTE | 2017-11-10 11:19 | CP.PCM.PN ---
Subjective - Date & Time of Evaluation Date of Evaluation: 11/10/17 Time of Evaluation: 09:50 - Subjective Subjective: Comfortable, no fevers, no pain in the mouth, no diarrhea, no SOB at rest, no chest pain. Objective - Vital Signs/Intake and Output Vital Signs (last 24 hours): Temp Pulse Resp BP Pulse Ox 99.4 F 86 20 163/106 H 96 11/10/17 00:01 11/10/17 05:48 11/10/17 00:01 11/10/17 05:38 11/10/17 00:01 Intake and Output: 11/09/17 11/10/17 18:59 06:59 Intake Total 560 Balance 560 - Medications Medications: Current Medications Albuterol/Ipratropium (Duoneb 3 Mg/0.5 Mg (3 Ml) Ud) 3 ml IH [id number] PRN PRN Reason: Wheezing Last Admin: 11/07/17 16:16 Dose: 3 ml Aspirin (Aspirin Chewable) 81 mg PO DAILY [facility] Last Admin: 11/09/17 09:00 Dose: 81 mg Atorvastatin Calcium (Lipitor) 20 mg PO DIN [facility] Last Admin: 11/09/17 16:21 Dose: 20 mg Diltiazem HCl (Cardizem) 30 mg PO QID [facility] Last Admin: 11/09/17 21:34 Dose: 30 mg Enoxaparin Sodium (Lovenox) 60 mg SC Q12H [facility] PRN Reason: Protocol Last Admin: 11/09/17 21:41 Dose: 60 mg Folic Acid (Folic Acid) 1 mg PO DAILY [facility] Last Admin: 11/09/17 09:00 Dose: 1 mg Hydralazine HCl (Apresoline) 10 mg IVP Q6H PRN PRN Reason: SBP>160 Last Admin: 11/10/17 05:38 Dose: 10 mg Piperacillin Sod/Tazobactam Sod (Zosyn 3.375 In Ns 100ml) 100 mls @ 200 mls/hr IVPB Q6 [facility] PRN Reason: Protocol Stop: 11/11/17 18:01 Last Admin: 11/10/17 05:14 Dose: 200 mls/hr Lisinopril (Zestril) 5 mg PO DAILY [facility] Last Admin: 11/09/17 09:00 Dose: 5 mg Lorazepam (Ativan) 0.5 mg PO Q6H PRN; Protocol PRN Reason: Agitation Last Admin: 11/09/17 21:34 Dose: 0.5 mg Metoprolol Tartrate (Lopressor) 50 mg PO BRKDIN [facility] Last Admin: 11/09/17 16:21 Dose: 50 mg Multivitamins/Minerals (Therapeutic-M Tab) 1 tab PO 0800 [facility] Last Admin: 11/09/17 08:00 Dose: 1 tab Ondansetron HCl (Zofran Inj) 4 mg IVP Q4H PRN PRN Reason: Nausea/Vomiting Pantoprazole Sodium (Protonix Ec Tab) 40 mg PO 0600 [facility] Last Admin: 11/10/17 05:14 Dose: 40 mg Sucralfate (Carafate Oral Susp) 1 gm PO 0600,1600 [facility] Last Admin: 11/10/17 05:14 Dose: 1 gm Thiamine HCl (Vitamin B1 Tab) 100 mg PO DAILY [facility] Last Admin: 11/09/17 09:04 Dose: 100 mg Warfarin Sodium (Coumadin) 5 mg PO 1800 [facility] PRN Reason: Protocol Last Admin: 11/09/17 17:33 Dose: 5 mg - Labs Labs: 11/08/17 05:30 11/09/17 06:30 PT 12.8 SECONDS (9.4-12.5) H 11/09/17 06:30 INR 1.11 (0.93-1.08) H 11/09/17 06:30 APTT 36.8 Seconds (25.1-36.5) H 11/07/17 06:00 - Constitutional Appears: Non-toxic, Chronically Ill - Head Exam Head Exam: NORMAL INSPECTION - Respiratory Exam Respiratory Exam: Decreased Breath Sounds - Cardiovascular Exam Cardiovascular Exam: +S1, +S2 - GI/Abdominal Exam GI & Abdominal Exam: Soft. absent: Tenderness Assessment and Plan - Assessment and Plan (Free Text) Plan: Assessment S/P systemic Inflammatory response syndrome, consider due to alcohol intoxication, on top of pulmonary embolism (P.E.) pharyngeal infection R/O odontogenic abscess in a patient with chronic sinusitis Plan continue Zosyn and patient will need to see a dentist; patient may be switched to PO Augmentin until the patient sees the dentist will monitor clinically while the patient is in the hospital patient is being anticoagulated for the P.E.
--- NOTE | 2017-11-10 14:05 | CP.PCM.PN ---
<Adalberto Dubose - Last Filed: 11/10/17 14:01> Subjective - Date & Time of Evaluation Date of Evaluation: 11/10/17 Time of Evaluation: 07:00 - Subjective Subjective: PGY1 Medicine Note for Dr. Portillo Patient seen and examined at bedside this morning. No acute events overnight. Patient has a lot more energy this morning. He said he feels great and that he is breathing much easier. He took off his oxygen this morning and is able to breath comfortably without becoming short of breath. He is tolerating his diet and has no complaints at this time. Denies fevers, chills, nausea, vomiting, diarrhea, constipation, chest pain, shortness of breath, abdominal pain, or any symptoms of alcohol withdrawal. Objective - Vital Signs/Intake and Output Vital Signs (last 24 hours): Temp Pulse Resp BP Pulse Ox 99.4 F 86 20 116/85 96 11/10/17 00:01 11/10/17 13:26 11/10/17 00:01 11/10/17 13:26 11/10/17 00:01 Intake and Output: 11/10/17 11/10/17 06:59 18:59 Intake Total 560 Balance 560 - Medications Medications: Current Medications Albuterol/Ipratropium (Duoneb 3 Mg/0.5 Mg (3 Ml) Ud) 3 ml IH [id number] PRN PRN Reason: Wheezing Last Admin: 11/07/17 16:16 Dose: 3 ml Aspirin (Aspirin Chewable) 81 mg PO DAILY [facility] Last Admin: 11/10/17 09:09 Dose: 81 mg Atorvastatin Calcium (Lipitor) 20 mg PO DIN [facility] Last Admin: 11/09/17 16:21 Dose: 20 mg Diltiazem HCl (Cardizem) 30 mg PO QID [facility] Last Admin: 11/10/17 13:26 Dose: 30 mg Enoxaparin Sodium (Lovenox) 60 mg SC Q12H REBEKAH PRN Reason: Protocol Last Admin: 11/10/17 09:09 Dose: 60 mg Folic Acid (Folic Acid) 1 mg PO DAILY [facility] Last Admin: 11/10/17 09:09 Dose: 1 mg Hydralazine HCl (Apresoline) 10 mg IVP Q6H PRN PRN Reason: SBP>160 Last Admin: 11/10/17 05:38 Dose: 10 mg Piperacillin Sod/Tazobactam Sod (Zosyn 3.375 In Ns 100ml) 100 mls @ 200 mls/hr IVPB Q6 [facility] PRN Reason: Protocol Stop: 11/11/17 18:01 Last Admin: 11/10/17 13:26 Dose: 200 mls/hr Lisinopril (Zestril) 5 mg PO DAILY [facility] Last Admin: 11/10/17 09:09 Dose: 5 mg Lorazepam (Ativan) 0.5 mg PO Q6H PRN; Protocol PRN Reason: Agitation Last Admin: 11/10/17 08:36 Dose: 0.5 mg Metoprolol Tartrate (Lopressor) 50 mg PO BRKDIN [facility] Last Admin: 11/10/17 08:36 Dose: 50 mg Multivitamins/Minerals (Therapeutic-M Tab) 1 tab PO 0800 [facility] Last Admin: 11/10/17 08:36 Dose: 1 tab Ondansetron HCl (Zofran Inj) 4 mg IVP Q4H PRN PRN Reason: Nausea/Vomiting Pantoprazole Sodium (Protonix Ec Tab) 40 mg PO 0600 [facility] Last Admin: 11/10/17 05:14 Dose: 40 mg Sucralfate (Carafate Oral Susp) 1 gm PO 0600,1600 [facility] Last Admin: 11/10/17 05:14 Dose: 1 gm Thiamine HCl (Vitamin B1 Tab) 100 mg PO DAILY [facility] Last Admin: 11/10/17 09:10 Dose: 100 mg Warfarin Sodium (Coumadin) 5 mg PO 1800 [facility] PRN Reason: Protocol Last Admin: 11/09/17 17:33 Dose: 5 mg - Labs Labs: 11/10/17 06:00 11/10/17 06:00 PT 13.8 SECONDS (9.4-12.5) H 11/10/17 06:00 INR 1.20 (0.93-1.08) H 11/10/17 06:00 APTT 36.8 Seconds (25.1-36.5) H 11/07/17 06:00 - Constitutional Appears: Non-toxic, No Acute Distress - Head Exam Head Exam: ATRAUMATIC, NORMOCEPHALIC - Eye Exam Eye Exam: Normal appearance - ENT Exam ENT Exam: Mucous Membranes Moist - Respiratory Exam Respiratory Exam: Clear to Ausculation Bilateral, NORMAL BREATHING PATTERN. absent: Accessory Muscle Use, Rales, Rhonchi, Wheezes, Respiratory Distress - Cardiovascular Exam Cardiovascular Exam: REGULAR RHYTHM, +S1, +S2 - GI/Abdominal Exam GI & Abdominal Exam: Soft. absent: Distended, Firm, Guarding, Rigid, Tenderness - Extremities Exam Extremities Exam: absent: Calf Tenderness, Pedal Edema Additional comments: scds in place - Neurological Exam Neurological Exam: Alert, Awake, CN II-XII Intact, Oriented x3 Additional comments: no tremors noted. - Psychiatric Exam Psychiatric exam: Normal Affect, Normal Mood - Skin Skin Exam: Dry, Warm Assessment and Plan - Assessment and Plan (Free Text) Assessment: 57M, PMhx of active smoker (2ppd x 40 yrs), EtOh abuse, and substance abuse who was brought in by ambulance after he was found intoxicated in a vehicle by police. BELGICA 508, initially given 2L IVF, repeat lactate downtrending 5.8-->4.4. Mentation improves yesterday, AAOx3. CT head concerns for multiple foci of gas and parapharyngeal tissues, right side, with dental abscess. He is on zosyn. He developed A-fib RVR, on cardizem gtt. D-Dimer 5210. CTA-chest showedb ilateral PE's, including saddle embolus, with large clot burden and signs of right heart strain. He was upgraded to ICU for heparin gtt. CIWA in place. Plan: Pulmonary Embolism, with large clot burden, b/l + saddle, RH strain - stable. Hold IR consult for thrombolysis - Lovenox 60mg SC q12h * Will start to transition to coumadin, continue with coumadin 5mg PO daily * INR - 1.2, continue to monitor * Patient was informed of medications and importance of medication compliance. Patient was informed that we are currently transitioning from Lovenox to Coumadin which he will need to take daily, most likely for the rest of his life. He was also informed that he will need to follow up with his PMD for blood tests upon discharge to monitor his blood levels (INR) and will most likely need to continue to do this for the duration that he is on the medication. Patient reports that he understands and that he will make sure to follow through on all of these tasks. He is very concerned about his health and he does not want to . He was instructed again about the importance of abstaining from smoking and alcohol. He states that he is done with both and understands that it is very dangerous to him if he smokes or drinks again. - F/U hypercoagulable workup - 2D echo - LVEF ~41%,mild hypokinesis in the apical anterior wall. RV moderately dilated, systolic function of RV is moderately reduced, trace MR, moderate TR, no pericardial effusion. - Cardio (Dr. Easton) * Cardio recommends IVC filter due to large clot burden and poor expected compliance. * Dr. Portillo discussed case with IR, Dr. Jason Hines, and both decided against IVC filter as hx of patient's poor compliance and extensive disease resulting in multiple clots. Dr. Easton updated and understands. - Heme (Dr. Sprague) on board * f/u hypercoag work up * f/u recs - troponin elevated but trending down, cardio aware Afib with RVR - HR stable - dc tele - cardizem 30mg PO QID - metoprolol Alcohol Intoxication - BELGICA 506 on admission - Thiamine, Multivitamin and Folic Acid - CIWA * no signs of withdrawal at this time - Fall, aspiration and seizure precautions - HOB above 30 degrees Lactic acidosis likely from PE R/O SIRS vs Sepsis Possible source of infection (soft tissue infection R laryngeal vs groundglass consolidation upper lobes vs tooth abscess) - Procalc 0.08 - Blood Cx neg x 5 days - Urine Cx neg - continue IV Zosyn (last dose on 11/11) Cyst at base of tooth on R Maxillary - Head CT ordered to r/o fracture or brain bleed. - CT head showed no acute intracranial abnormalities but multiple foci of gas and parapharyngeal tissues most significant on the right side along with findings suspicious for dental abscess - CT Maxillofacial: walled cyst at base of tooth R maxillary. No acute fracture - ENT consulted, follow up recs * Per ENT, patient to follow up with dental clinic at [facility] upon discharge. * ENT gave patient information. Patient is to call and schedule an appointment. Hypertension - morning reading of 163/106, currently 116/85 - Metoprolol 50mg PO BID - Lisinopril 5mg PO daily - continue to monitor Thrombocytopenia -Platelet count 178 (11/08) -heme consulted, follow recs -monitor Hypokalemia - K 3.2 - repleted and monitor Hypomagnesia - resolved - 1.7 - continue to monitor Prophylactic Care GI Prophylaxis: Protonix Diet: HHD, soft DISPO: Patient can not be safely discharged until his INR is therapeutic ( between 2-3). Case discussed with Dr. Lindsey Dubose PGY1 <Chuck Portillo - Last Filed: 11/10/17 15:23> Objective - Vital Signs/Intake and Output Vital Signs (last 24 hours): Temp Pulse Resp BP Pulse Ox 99.4 F 86 20 116/85 96 11/10/17 00:01 11/10/17 13:26 11/10/17 00:01 11/10/17 13:26 11/10/17 00:01 Intake and Output: 11/10/17 11/10/17 06:59 18:59 Intake Total 560 Balance 560 - Medications Medications: Current Medications Albuterol/Ipratropium (Duoneb 3 Mg/0.5 Mg (3 Ml) Ud) 3 ml IH [id number] PRN PRN Reason: Wheezing Last Admin: 11/07/17 16:16 Dose: 3 ml Aspirin (Aspirin Chewable) 81 mg PO DAILY [facility] Last Admin: 11/10/17 09:09 Dose: 81 mg Atorvastatin Calcium (Lipitor) 20 mg PO DIN [facility] Last Admin: 11/09/17 16:21 Dose: 20 mg Diltiazem HCl (Cardizem) 30 mg PO QID [facility] Last Admin: 11/10/17 13:26 Dose: 30 mg Enoxaparin Sodium (Lovenox) 60 mg SC Q12H REBEKAH PRN Reason: Protocol Last Admin: 11/10/17 09:09 Dose: 60 mg Folic Acid (Folic Acid) 1 mg PO DAILY [facility] Last Admin: 11/10/17 09:09 Dose: 1 mg Hydralazine HCl (Apresoline) 10 mg IVP Q6H PRN PRN Reason: SBP>160 Last Admin: 11/10/17 05:38 Dose: 10 mg Piperacillin Sod/Tazobactam Sod (Zosyn 3.375 In Ns 100ml) 100 mls @ 200 mls/hr IVPB Q6 [facility] PRN Reason: Protocol Stop: 11/11/17 18:01 Last Admin: 11/10/17 13:26 Dose: 200 mls/hr Lisinopril (Zestril) 5 mg PO DAILY [facility] Last Admin: 11/10/17 09:09 Dose: 5 mg Lorazepam (Ativan) 0.5 mg PO Q6H PRN; Protocol PRN Reason: Agitation Last Admin: 11/10/17 08:36 Dose: 0.5 mg Metoprolol Tartrate (Lopressor) 50 mg PO BRKDIN [facility] Last Admin: 11/10/17 08:36 Dose: 50 mg Multivitamins/Minerals (Therapeutic-M Tab) 1 tab PO 0800 [facility] Last Admin: 11/10/17 08:36 Dose: 1 tab Ondansetron HCl (Zofran Inj) 4 mg IVP Q4H PRN PRN Reason: Nausea/Vomiting Pantoprazole Sodium (Protonix Ec Tab) 40 mg PO 0600 [facility] Last Admin: 11/10/17 05:14 Dose: 40 mg Sucralfate (Carafate Oral Susp) 1 gm PO 0600,1600 [facility] Last Admin: 11/10/17 05:14 Dose: 1 gm Thiamine HCl (Vitamin B1 Tab) 100 mg PO DAILY [facility] Last Admin: 11/10/17 09:10 Dose: 100 mg Warfarin Sodium (Coumadin) 5 mg PO 1800 [facility] PRN Reason: Protocol Last Admin: 11/09/17 17:33 Dose: 5 mg - Labs Labs: 11/10/17 06:00 11/10/17 06:00 PT 13.8 SECONDS (9.4-12.5) H 11/10/17 06:00 INR 1.20 (0.93-1.08) H 11/10/17 06:00 APTT 36.8 Seconds (25.1-36.5) H 11/07/17 06:00 Attending/Attestation - Attestation I have personally seen and examined this patient.: Yes I have fully participated in the care of the patient.: Yes I have reviewed all pertinent clinical information, including history, physical exam and plan: Yes Notes (Text): 11/10/17 14:30 Attending note; Patient seen and examined with resident. Patient is a 57 year old male with past medical history of alcohol abuse, substance abuse was initially admitted with alcohol abuse. Patient had systemic inflammatory response syndrome at the time of admission. CT head showed multiple foci of gas in parapharyngeal tissues and dental abscess. Currently on IV Zosyn. ID evaluation appreciated. Patient is clinically stable. Tolerating diet well. ENT evaluation appreciated. Patient will be referred to [facility] for tooth extraction. He was found to have elevated d-dimer and CT angio showed for bilateral PE with saddle embolus, large clot burden and signs of right heart strain. Patient is currently on subcutaneous Lovenox. Started on Coumadin. INR is 1.2. Thrombocytopenia; resolved.secondary to alcohol abuse. He had elevated troponins possibly secondary to PE. Cardiology evaluation appreciated. Cardiology recommended IVC filter placement. Case discussed with Dr. Jason Hines in detail. At this point IVC filter is not recommended. Patient still needs to be on anticoagulation even with IVC filter. Patient was educated in detail about the need for medication compliance and close follow-up. Patient agreed to continue with Coumadin. Alcohol abuse; complete alcohol cessation is strongly advised. Agreed to stop alcohol abuse. Patient is currently alert and awake. Understood the diagnosis of acute PE and DVT. Agreed to stop alcohol abuse. benefits Side effects of Coumadin explained to him in detail. youth care worker evaluation appreciated. Patient will apply for Medicaid. Physical therapy evaluation appreciated. Continue therapy. Patient will be referred to [facility] clinic upon discharge.
[2017-11-10] MEDS ORDERED: Potassium Chloride 20 mEq ER Tab PO ONE (14:15)
--- NOTE | 2017-11-10 15:45 | CP.PCM.PN ---
Subjective - Date & Time of Evaluation Date of Evaluation: 11/10/17 Time of Evaluation: 07:30 - Subjective Subjective: Heme onc Progress Note for Dr. Sprague Patient was seen and examined at bedside. No acute complaints at this time. Patient states he is feeling much better than before and has been ambulating around the nurses station whenever possible. He is tolerating po intake and moving bowels and bladder regularly. Patient denied fever, chill, shortness of breath, chest pains, abdominal pains, nausea, vomiting, diarrhea, constipation, or dysuria. Objective - Vital Signs/Intake and Output Vital Signs (last 24 hours): Temp Pulse Resp BP Pulse Ox 98.4 F 86 20 116/85 96 11/10/17 12:00 11/10/17 13:26 11/10/17 12:00 11/10/17 13:26 11/10/17 00:01 Intake and Output: 11/10/17 11/10/17 06:59 18:59 Intake Total 560 1140 Balance 560 1140 - Medications Medications: Current Medications Albuterol/Ipratropium (Duoneb 3 Mg/0.5 Mg (3 Ml) Ud) 3 ml IH [id number] PRN PRN Reason: Wheezing Last Admin: 11/07/17 16:16 Dose: 3 ml Aspirin (Aspirin Chewable) 81 mg PO DAILY [facility] Last Admin: 11/10/17 09:09 Dose: 81 mg Atorvastatin Calcium (Lipitor) 20 mg PO DIN [facility] Last Admin: 11/09/17 16:21 Dose: 20 mg Diltiazem HCl (Cardizem) 30 mg PO QID [facility] Last Admin: 11/10/17 13:26 Dose: 30 mg Enoxaparin Sodium (Lovenox) 60 mg SC Q12H REBEKAH PRN Reason: Protocol Last Admin: 11/10/17 09:09 Dose: 60 mg Folic Acid (Folic Acid) 1 mg PO DAILY [facility] Last Admin: 11/10/17 09:09 Dose: 1 mg Hydralazine HCl (Apresoline) 10 mg IVP Q6H PRN PRN Reason: SBP>160 Last Admin: 11/10/17 05:38 Dose: 10 mg Piperacillin Sod/Tazobactam Sod (Zosyn 3.375 In Ns 100ml) 100 mls @ 200 mls/hr IVPB Q6 [facility]KAH PRN Reason: Protocol Stop: 11/11/17 18:01 Last Admin: 11/10/17 13:26 Dose: 200 mls/hr Lisinopril (Zestril) 5 mg PO DAILY [facility] Last Admin: 11/10/17 09:09 Dose: 5 mg Lorazepam (Ativan) 0.5 mg PO Q6H PRN; Protocol PRN Reason: Agitation Last Admin: 11/10/17 08:36 Dose: 0.5 mg Metoprolol Tartrate (Lopressor) 50 mg PO BRKDIN [facility] Last Admin: 11/10/17 08:36 Dose: 50 mg Multivitamins/Minerals (Therapeutic-M Tab) 1 tab PO 0800 [facility] Last Admin: 11/10/17 08:36 Dose: 1 tab Ondansetron HCl (Zofran Inj) 4 mg IVP Q4H PRN PRN Reason: Nausea/Vomiting Pantoprazole Sodium (Protonix Ec Tab) 40 mg PO 0600 [facility] Last Admin: 11/10/17 05:14 Dose: 40 mg Sucralfate (Carafate Oral Susp) 1 gm PO 0600,1600 [facility] Last Admin: 11/10/17 05:14 Dose: 1 gm Thiamine HCl (Vitamin B1 Tab) 100 mg PO DAILY [facility] Last Admin: 11/10/17 09:10 Dose: 100 mg Warfarin Sodium (Coumadin) 5 mg PO 1800 [facility] PRN Reason: Protocol Last Admin: 11/09/17 17:33 Dose: 5 mg - Labs Labs: 11/10/17 06:00 11/10/17 06:00 PT 13.8 SECONDS (9.4-12.5) H 11/10/17 06:00 INR 1.20 (0.93-1.08) H 11/10/17 06:00 APTT 36.8 Seconds (25.1-36.5) H 11/07/17 06:00 - Constitutional Appears: No Acute Distress - Head Exam Head Exam: ATRAUMATIC, NORMAL INSPECTION, NORMOCEPHALIC - Eye Exam Eye Exam: EOMI, Normal appearance, PERRL Pupil Exam: NORMAL ACCOMODATION, PERRL - ENT Exam ENT Exam: Mucous Membranes Moist, Normal Exam - Respiratory Exam Respiratory Exam: Clear to Ausculation Bilateral, NORMAL BREATHING PATTERN - Cardiovascular Exam Cardiovascular Exam: REGULAR RHYTHM, +S1, +S2. absent: Murmur - GI/Abdominal Exam GI & Abdominal Exam: Soft, Normal Bowel Sounds. absent: Tenderness - Neurological Exam Neurological Exam: Alert, Awake, CN II-XII Intact, Normal Gait, Oriented x3 - Psychiatric Exam Psychiatric exam: Normal Affect, Normal Mood - Skin Skin Exam: Dry, Intact, Normal Color, Warm Assessment and Plan - Assessment and Plan (Free Text) Assessment: 57 M with a PMHx of polysubstance abuse, and an active smoker admitted with elevated d-dimer and CT angio demonstrated bilateral PE with saddle embolus, large clot burden and signs of right heart strain now on therapeutic lovenox with 60mg q12 and will transition to coumadin however INR is not therapeutic. Patient hypercoaguable workup pending, fu factor Xa activity/mutation. Continue asa, cardizem 300mg QID, lopresor 25mg BID, IV Zosyn. Cardiology consulted Dr. Easton recommended IVC filter however is not a candidate at this time. Thrombocytopenia has resolved and related to alcohol abuse.
[2017-11-11] MEDS: Sucralfate 1 gm/10 ml Oral Susp UD PO SCH ×2 (05:20→16:24)
[2017-11-11] MEDS: Pantoprazole 40 mg EC Tab PO SCH (05:20)
[2017-11-11] MEDS: Piperacillin/Tazobact 3.375 gm 100 ML IVPB SCH ×3 (05:20→17:41)
[2017-11-11 06:33] LABS: BASO # 0.04 K/mm3 (0.0-2.0); BASO % 0.4 % (0.0-3.0); EOS # 0.2 (0.0-0.7); EOS % 2.2 % (1.5-5.0); GRAN # 5.77 (1.4-6.5); GRAN % 58.4 % (50.0-68.0); HEMOGLOBIN 13.3 g/dL (14.0-18.0); LYMPH # 2.1 (1.2-3.4); LYMPH % 20.8 % (22.0-35.0); MEAN CELL VOLUME 97.5 fl (80.0-105.0); MEAN CORPUSCULAR HEMOGLOBIN 32.9 pg (25.0-35.0); MEAN CORPUSCULAR HGB CONC 33.8 g/dl (31.0-37.0); MONO # 1.8 (0.1-0.6); MONO % 18.2 % (1.0-6.0); RBC 4.04 10^6/uL (3.5-6.1); RED CELL DISTRIBUTION WIDTH 13.7 % (11.5-14.5); WHITE BLOOD COUNT 9.9 10^3/ul (4.5-11.0)
--- NOTE | 2017-11-11 06:50 | CP.PCM.PN ---
<Adalberto Dubose - Last Filed: 11/11/17 14:31> Subjective - Date & Time of Evaluation Date of Evaluation: 11/11/17 Time of Evaluation: 06:50 - Subjective Subjective: PGY1 Medicine Note for Dr. Portillo Patient seen and examined at bedside this morning. No acute events overnight. Patient is in great spirits today. He is feeling great, no pain and tolerating his diet. No longer experiencing any tremors. Denies fevers, chills, nausea, vomiting, diarrhea, constipation, chest pain, shortness of breath, abdominal pain, or any symptoms of alcohol withdrawal. Objective - Vital Signs/Intake and Output Vital Signs (last 24 hours): Temp Pulse Resp BP Pulse Ox 98.2 F 70 20 142/95 H 95 11/10/17 16:45 11/10/17 22:13 11/10/17 16:45 11/10/17 22:13 11/10/17 16:45 Intake and Output: 11/10/17 11/11/17 18:59 06:59 Intake Total 1140 1340 Output Total 0 Balance 1140 1340 - Medications Medications: Current Medications Albuterol/Ipratropium (Duoneb 3 Mg/0.5 Mg (3 Ml) Ud) 3 ml IH [id number] PRN PRN Reason: Wheezing Last Admin: 11/07/17 16:16 Dose: 3 ml Aspirin (Aspirin Chewable) 81 mg PO DAILY [facility] Last Admin: 11/10/17 09:09 Dose: 81 mg Atorvastatin Calcium (Lipitor) 20 mg PO DIN [facility] Last Admin: 11/10/17 17:24 Dose: 20 mg Diltiazem HCl (Cardizem) 30 mg PO QID [facility] Last Admin: 11/10/17 22:13 Dose: 30 mg Enoxaparin Sodium (Lovenox) 60 mg SC Q12H [facility]BEK[facility] PRN Reason: Protocol Last Admin: 11/10/17 22:14 Dose: 60 mg Folic Acid (Folic Acid) 1 mg PO DAILY [facility] Last Admin: 11/10/17 09:09 Dose: 1 mg Hydralazine HCl (Apresoline) 10 mg IVP Q6H PRN PRN Reason: SBP>160 Last Admin: 11/10/17 05:38 Dose: 10 mg Piperacillin Sod/Tazobactam Sod (Zosyn 3.375 In Ns 100ml) 100 mls @ 200 mls/hr IVPB Q6 REBEKAH PRN Reason: Protocol Stop: 11/11/17 18:01 Last Admin: 11/11/17 05:20 Dose: 200 mls/hr Lisinopril (Zestril) 5 mg PO DAILY [facility] Last Admin: 11/10/17 09:09 Dose: 5 mg Lorazepam (Ativan) 0.5 mg PO Q6H PRN; Protocol PRN Reason: Agitation Last Admin: 11/10/17 08:36 Dose: 0.5 mg Metoprolol Tartrate (Lopressor) 50 mg PO BRKDIN [facility] Last Admin: 11/10/17 17:24 Dose: 50 mg Multivitamins/Minerals (Therapeutic-M Tab) 1 tab PO 0800 [facility] Last Admin: 11/10/17 08:36 Dose: 1 tab Ondansetron HCl (Zofran Inj) 4 mg IVP Q4H PRN PRN Reason: Nausea/Vomiting Pantoprazole Sodium (Protonix Ec Tab) 40 mg PO 0600 [facility] Last Admin: 11/11/17 05:20 Dose: 40 mg Sucralfate (Carafate Oral Susp) 1 gm PO 0600,1600 [facility] Last Admin: 11/11/17 05:20 Dose: 1 gm Thiamine HCl (Vitamin B1 Tab) 100 mg PO DAILY [facility] Last Admin: 11/10/17 09:10 Dose: 100 mg Warfarin Sodium (Coumadin) 7.5 mg PO 1800 [facility] PRN Reason: Protocol Last Admin: 11/10/17 17:37 Dose: 7.5 mg - Labs Labs: 11/10/17 06:00 11/10/17 06:00 PT 13.8 SECONDS (9.4-12.5) H 11/10/17 06:00 INR 1.20 (0.93-1.08) H 11/10/17 06:00 APTT 36.8 Seconds (25.1-36.5) H 11/07/17 06:00 - Constitutional Appears: Non-toxic, No Acute Distress - Head Exam Head Exam: ATRAUMATIC, NORMOCEPHALIC - Eye Exam Eye Exam: Normal appearance - ENT Exam ENT Exam: Mucous Membranes Moist - Neck Exam Neck Exam: absent: Lymphadenopathy - Respiratory Exam Respiratory Exam: Clear to Ausculation Bilateral, NORMAL BREATHING PATTERN. absent: Accessory Muscle Use, Rales, Rhonchi, Wheezes, Respiratory Distress - Cardiovascular Exam Cardiovascular Exam: REGULAR RHYTHM, +S1, +S2 - GI/Abdominal Exam GI & Abdominal Exam: Soft. absent: Distended, Firm, Guarding, Rigid, Tenderness - Extremities Exam Extremities Exam: absent: Pedal Edema - Neurological Exam Neurological Exam: Alert, Awake, CN II-XII Intact, Normal Gait, Oriented x3 Neuro motor strength exam: Left Upper Extremity: 5, Right Upper Extremity: 5, Left Lower Extremity: 5, Right Lower Extremity: 5 Additional comments: No tremors noted. - Psychiatric Exam Psychiatric exam: Normal Affect, Normal Mood - Skin Skin Exam: Dry, Warm Assessment and Plan - Assessment and Plan (Free Text) Assessment: 57M, PMhx of active smoker (2ppd x 40 yrs), EtOh abuse, and substance abuse who was brought in by ambulance after he was found intoxicated in a vehicle by police. BELGICA 508, initially given 2L IVF, repeat lactate downtrending 5.8-->4.4. Mentation improves yesterday, AAOx3. CT head concerns for multiple foci of gas and parapharyngeal tissues, right side, with dental abscess. He is on zosyn. He developed A-fib RVR, on cardizem gtt. D-Dimer 5210. CTA-chest showedb ilateral PE's, including saddle embolus, with large clot burden and signs of right heart strain. He was upgraded to ICU for heparin gtt. CIWA in place. Plan: Pulmonary Embolism, with large clot burden, b/l + saddle, RH strain - stable. Hold IR consult for thrombolysis - Lovenox 60mg SC q12h * Coumadin 7.5mg PO daily * INR - 1.64, continue to monitor * Patient was informed of medications and importance of medication compliance. Patient was informed that we are currently transitioning from Lovenox to Coumadin which he will need to take daily, most likely for the rest of his life. He was also informed that he will need to follow up with his PMD for blood tests upon discharge to monitor his blood levels (INR) and will most likely need to continue to do this for the duration that he is on the medication. Patient reports that he understands and that he will make sure to follow through on all of these tasks. He is very concerned about his health and he does not want to . He was instructed again about the importance of abstaining from smoking and alcohol. He states that he is done with both and understands that it is very dangerous to him if he smokes or drinks again. - F/U hypercoagulable workup - 2D echo - LVEF ~41%,mild hypokinesis in the apical anterior wall. RV moderately dilated, systolic function of RV is moderately reduced, trace MR, moderate TR, no pericardial effusion. - Cardio (Dr. Easton) * Cardio recommends IVC filter due to large clot burden and poor expected compliance. * Dr. Portillo discussed case with IR, Dr. Jason Hines, and both decided against IVC filter as hx of patient's poor compliance and extensive disease resulting in multiple clots. Dr. Easton updated and understands. - Heme (Dr. Sprague) on board * f/u hypercoag work up * f/u recs - troponin elevated but trending down, cardio aware Afib with RVR - HR stable - dc tele - cardizem 30mg PO QID - metoprolol Alcohol Intoxication - BELGICA 506 on admission - Thiamine, Multivitamin and Folic Acid - CIWA * no signs of withdrawal at this time - Fall, aspiration and seizure precautions - HOB above 30 degrees Lactic acidosis likely from PE R/O SIRS vs Sepsis Possible source of infection (soft tissue infection R laryngeal vs groundglass consolidation upper lobes vs tooth abscess) - Procalc 0.08 - Blood Cx neg x 5 days - Urine Cx neg - continue IV Zosyn (last dose on 11/11) Cyst at base of tooth on R Maxillary - Head CT ordered to r/o fracture or brain bleed. - CT head showed no acute intracranial abnormalities but multiple foci of gas and parapharyngeal tissues most significant on the right side along with findings suspicious for dental abscess - CT Maxillofacial: walled cyst at base of tooth R maxillary. No acute fracture - ENT consulted, follow up recs * Per ENT, patient to follow up with dental clinic at [facility] upon discharge. * ENT gave patient information. Patient is to call and schedule an appointment. Hypertension - morning reading of 163/106, currently 116/85 - Metoprolol 50mg PO BID - Lisinopril 5mg PO daily - continue to monitor Thrombocytopenia -Platelet count 237 -heme consulted, follow recs -monitor Hypokalemia - K 3.8 - continue to monitor Hypomagnesia - resolved - 1.8 - continue to monitor Prophylactic Care GI Prophylaxis: Protonix Diet: HHD, soft DISPO: Patient can not be safely discharged until his INR is therapeutic ( between 2-3). Possible dc over the weekend if patient's INR become therapeutic. Case discussed with Dr. Lindsey Millern PGY1 <Chuck Portillo - Last Filed: 11/11/17 15:09> Objective - Vital Signs/Intake and Output Vital Signs (last 24 hours): Temp Pulse Resp BP Pulse Ox 98.2 F 76 16 159/96 H 97 11/11/17 06:00 11/11/17 15:03 11/11/17 06:00 11/11/17 15:03 11/11/17 06:00 Intake and Output: 11/11/17 11/11/17 06:59 18:59 Intake Total 1340 1500 Output Total 0 Balance 1340 1500 - Medications Medications: Current Medications Albuterol/Ipratropium (Duoneb 3 Mg/0.5 Mg (3 Ml) Ud) 3 ml IH [id number] PRN PRN Reason: Wheezing Last Admin: 11/07/17 16:16 Dose: 3 ml Aspirin (Aspirin Chewable) 81 mg PO DAILY [facility] Last Admin: 11/11/17 09:02 Dose: 81 mg Atorvastatin Calcium (Lipitor) 20 mg PO DIN [facility] Last Admin: 11/10/17 17:24 Dose: 20 mg Diltiazem HCl (Cardizem) 30 mg PO QID [facility] Last Admin: 11/11/17 15:03 Dose: 30 mg Enoxaparin Sodium (Lovenox) 60 mg SC Q12H [facility] PRN Reason: Protocol Last Admin: 11/11/17 09:04 Dose: 60 mg Folic Acid (Folic Acid) 1 mg PO DAILY [facility] Last Admin: 11/11/17 09:02 Dose: 1 mg Hydralazine HCl (Apresoline) 10 mg IVP Q6H PRN PRN Reason: SBP>160 Last Admin: 11/10/17 05:38 Dose: 10 mg Piperacillin Sod/Tazobactam Sod (Zosyn 3.375 In Ns 100ml) 100 mls @ 200 mls/hr IVPB Q6 [facility] PRN Reason: Protocol Stop: 11/11/17 18:01 Last Admin: 11/11/17 12:18 Dose: 200 mls/hr Lisinopril (Zestril) 5 mg PO DAILY [facility] Last Admin: 11/11/17 09:02 Dose: 5 mg Lorazepam (Ativan) 0.5 mg PO Q6H PRN; Protocol PRN Reason: Agitation Last Admin: 11/10/17 08:36 Dose: 0.5 mg Metoprolol Tartrate (Lopressor) 50 mg PO BRKDIN [facility] Last Admin: 11/11/17 08:43 Dose: 50 mg Multivitamins/Minerals (Therapeutic-M Tab) 1 tab PO 0800 [facility] Last Admin: 11/11/17 08:43 Dose: 1 tab Ondansetron HCl (Zofran Inj) 4 mg IVP Q4H PRN PRN Reason: Nausea/Vomiting Pantoprazole Sodium (Protonix Ec Tab) 40 mg PO 0600 [facility] Last Admin: 11/11/17 05:20 Dose: 40 mg Sucralfate (Carafate Oral Susp) 1 gm PO 0600,1600 [facility] Last Admin: 11/11/17 05:20 Dose: 1 gm Thiamine HCl (Vitamin B1 Tab) 100 mg PO DAILY [facility] Last Admin: 11/11/17 09:02 Dose: 100 mg Warfarin Sodium (Coumadin) 7.5 mg PO 1800 [facility] PRN Reason: Protocol Last Admin: 11/10/17 17:37 Dose: 7.5 mg - Labs Labs: 11/11/17 05:15 11/11/17 06:00 PT 19.1 SECONDS (9.4-12.5) H 11/11/17 05:15 INR 1.64 (0.93-1.08) H 11/11/17 05:15 APTT 36.8 Seconds (25.1-36.5) H 11/07/17 06:00 Attending/Attestation - Attestation I have personally seen and examined this patient.: Yes I have fully participated in the care of the patient.: Yes I have reviewed all pertinent clinical information, including history, physical exam and plan: Yes Notes (Text): 11/11/17 15:08 Attending note; Patient seen and examined with resident. Patient is a 57 year old male with past medical history of alcohol abuse, substance abuse was initially admitted with alcohol abuse. CT head showed multiple foci of gas in parapharyngeal tissues and dental abscess. Currently on IV Zosyn. ID evaluation appreciated. Patient is clinically stable. Tolerating diet well. ENT evaluation appreciated. Patient will be referred to [facility] for tooth extraction. He was found to have elevated d-dimer and CT angio showed for bilateral PE with saddle embolus, large clot burden and signs of right heart strain. Patient is currently on subcutaneous Lovenox. Started on Coumadin. INR is 1.6. Thrombocytopenia; resolved.secondary to alcohol abuse. He had elevated troponins possibly secondary to PE. Cardiology evaluation appreciated. Alcohol abuse; complete alcohol cessation is strongly advised. Agreed to stop alcohol abuse. Physical therapy evaluation appreciated. Continue therapy. possible discharge home tomorrow if INR is therapeutic. Patient will be referred to [facility] clinic upon discharge. 11/11/17 15:08
[2017-11-11 07:20] LABS: INR 1.64 (0.93-1.08); PROTHROMBIN TIME 19.1 SECONDS (9.4-12.5)
[2017-11-11 08:02] LABS: ALB/GLOB RATIO 1.1 (1.1-1.8); ALBUMIN 3.3 g/dL (3.0-4.8); ALT/SGPT 32 U/L (7-56); AST/SGOT 73 U/L (17-59); BLOOD UREA NITROGEN 5 mg/dL (7-21); CALCIUM 8.4 mg/dL (8.4-10.5); GFR AFRICAN-AMERICAN > 60; GFR NON-AFRICAN AMERICAN > 60
[2017-11-11] MEDS: Multivitamin With Minerals Tab PO SCH (08:43)
[2017-11-11] MEDS: Enoxaparin 60 mg Syringe SC SCH ×2 (09:04→21:47)
--- NOTE | 2017-11-11 12:34 | CP.PCM.PN ---
Subjective - Date & Time of Evaluation Date of Evaluation: 11/11/17 Time of Evaluation: 10:50 - Subjective Subjective: No fevers, not in distress, no pain in the mouth, no diarrhea, no SOB, no chest pain. Objective - Vital Signs/Intake and Output Vital Signs (last 24 hours): Temp Pulse Resp BP Pulse Ox 98.2 F 88 16 142/88 97 11/11/17 06:00 11/11/17 09:02 11/11/17 06:00 11/11/17 09:02 11/11/17 06:00 Intake and Output: 11/11/17 11/11/17 06:59 18:59 Intake Total 1340 Output Total 0 Balance 1340 - Medications Medications: Current Medications Albuterol/Ipratropium (Duoneb 3 Mg/0.5 Mg (3 Ml) Ud) 3 ml IH [id number] PRN PRN Reason: Wheezing Last Admin: 11/07/17 16:16 Dose: 3 ml Aspirin (Aspirin Chewable) 81 mg PO DAILY [facility] Last Admin: 11/11/17 09:02 Dose: 81 mg Atorvastatin Calcium (Lipitor) 20 mg PO DIN [facility] Last Admin: 11/10/17 17:24 Dose: 20 mg Diltiazem HCl (Cardizem) 30 mg PO QID [facility] Last Admin: 11/11/17 09:02 Dose: 30 mg Enoxaparin Sodium (Lovenox) 60 mg SC Q12H REBEKAH PRN Reason: Protocol Last Admin: 11/11/17 09:04 Dose: 60 mg Folic Acid (Folic Acid) 1 mg PO DAILY [facility] Last Admin: 11/11/17 09:02 Dose: 1 mg Hydralazine HCl (Apresoline) 10 mg IVP Q6H PRN PRN Reason: SBP>160 Last Admin: 11/10/17 05:38 Dose: 10 mg Piperacillin Sod/Tazobactam Sod (Zosyn 3.375 In Ns 100ml) 100 mls @ 200 mls/hr IVPB Q6 [facility]BEKAH PRN Reason: Protocol Stop: 11/11/17 18:01 Last Admin: 11/11/17 12:18 Dose: 200 mls/hr Lisinopril (Zestril) 5 mg PO DAILY [facility] Last Admin: 11/11/17 09:02 Dose: 5 mg Lorazepam (Ativan) 0.5 mg PO Q6H PRN; Protocol PRN Reason: Agitation Last Admin: 11/10/17 08:36 Dose: 0.5 mg Metoprolol Tartrate (Lopressor) 50 mg PO BRKDIN [facility] Last Admin: 11/11/17 08:43 Dose: 50 mg Multivitamins/Minerals (Therapeutic-M Tab) 1 tab PO 0800 [facility] Last Admin: 11/11/17 08:43 Dose: 1 tab Ondansetron HCl (Zofran Inj) 4 mg IVP Q4H PRN PRN Reason: Nausea/Vomiting Pantoprazole Sodium (Protonix Ec Tab) 40 mg PO 0600 [facility] Last Admin: 11/11/17 05:20 Dose: 40 mg Sucralfate (Carafate Oral Susp) 1 gm PO 0600,1600 [facility] Last Admin: 11/11/17 05:20 Dose: 1 gm Thiamine HCl (Vitamin B1 Tab) 100 mg PO DAILY [facility] Last Admin: 11/11/17 09:02 Dose: 100 mg Warfarin Sodium (Coumadin) 7.5 mg PO 1800 [facility] PRN Reason: Protocol Last Admin: 11/10/17 17:37 Dose: 7.5 mg - Labs Labs: 11/11/17 05:15 11/11/17 06:00 PT 19.1 SECONDS (9.4-12.5) H 11/11/17 05:15 INR 1.64 (0.93-1.08) H 11/11/17 05:15 APTT 36.8 Seconds (25.1-36.5) H 11/07/17 06:00 - Constitutional Appears: Chronically Ill - Head Exam Head Exam: NORMAL INSPECTION - ENT Exam ENT Exam: Mucous Membranes Moist - Neck Exam Neck Exam: absent: Meningismus - Respiratory Exam Respiratory Exam: Decreased Breath Sounds - Cardiovascular Exam Cardiovascular Exam: +S1, +S2 - GI/Abdominal Exam GI & Abdominal Exam: Soft. absent: Tenderness Assessment and Plan - Assessment and Plan (Free Text) Plan: Assessment S/P systemic Inflammatory response syndrome, consider due to alcohol intoxication, on top of pulmonary embolism (P.E.) pharyngeal infection R/O odontogenic abscess in a patient with chronic sinusitis Plan continue Zosyn and patient will need to see a dentist; patient may be switched to PO Augmentin until the patient sees the dentist will continue to monitor clinically while the patient is in the hospital patient is being anticoagulated for the P.E.
--- NOTE | 2017-11-11 15:42 | CP.PCM.PN ---
Subjective - Date & Time of Evaluation Date of Evaluation: 11/11/17 Time of Evaluation: 09:30 - Subjective Subjective: Heme Onc Progress Note for Dr Sprague Patient was seen and examined at bedside. No acute complaints at this time. Patient states he is feeling well and is wondering about going home. He is tolerating po intake and moving bowels and bladder regularly. Patient denied fever, chill, shortness of breath, chest pains, abdominal pains, nausea, vomiting, diarrhea, constipation, or dysuria. Objective - Vital Signs/Intake and Output Vital Signs (last 24 hours): Temp Pulse Resp BP Pulse Ox 98.2 F 76 16 159/96 H 97 11/11/17 06:00 11/11/17 15:03 11/11/17 06:00 11/11/17 15:03 11/11/17 06:00 Intake and Output: 11/11/17 11/11/17 06:59 18:59 Intake Total 1340 1500 Output Total 0 Balance 1340 1500 - Medications Medications: Current Medications Albuterol/Ipratropium (Duoneb 3 Mg/0.5 Mg (3 Ml) Ud) 3 ml IH [id number] PRN PRN Reason: Wheezing Last Admin: 11/07/17 16:16 Dose: 3 ml Aspirin (Aspirin Chewable) 81 mg PO DAILY [facility] Last Admin: 11/11/17 09:02 Dose: 81 mg Atorvastatin Calcium (Lipitor) 20 mg PO DIN [facility] Last Admin: 11/10/17 17:24 Dose: 20 mg Diltiazem HCl (Cardizem) 30 mg PO QID [facility] Last Admin: 11/11/17 15:03 Dose: 30 mg Enoxaparin Sodium (Lovenox) 60 mg SC Q12H [facility] PRN Reason: Protocol Last Admin: 11/11/17 09:04 Dose: 60 mg Folic Acid (Folic Acid) 1 mg PO DAILY [facility] Last Admin: 11/11/17 09:02 Dose: 1 mg Hydralazine HCl (Apresoline) 10 mg IVP Q6H PRN PRN Reason: SBP>160 Last Admin: 11/10/17 05:38 Dose: 10 mg Piperacillin Sod/Tazobactam Sod (Zosyn 3.375 In Ns 100ml) 100 mls @ 200 mls/hr IVPB Q6 [facility] PRN Reason: Protocol Stop: 11/11/17 18:01 Last Admin: 11/11/17 12:18 Dose: 200 mls/hr Lisinopril (Zestril) 5 mg PO DAILY [facility] Last Admin: 11/11/17 09:02 Dose: 5 mg Lorazepam (Ativan) 0.5 mg PO Q6H PRN; Protocol PRN Reason: Agitation Last Admin: 11/10/17 08:36 Dose: 0.5 mg Metoprolol Tartrate (Lopressor) 50 mg PO BRKDIN [facility] Last Admin: 11/11/17 08:43 Dose: 50 mg Multivitamins/Minerals (Therapeutic-M Tab) 1 tab PO 0800 [facility] Last Admin: 11/11/17 08:43 Dose: 1 tab Ondansetron HCl (Zofran Inj) 4 mg IVP Q4H PRN PRN Reason: Nausea/Vomiting Pantoprazole Sodium (Protonix Ec Tab) 40 mg PO 0600 [facility] Last Admin: 11/11/17 05:20 Dose: 40 mg Sucralfate (Carafate Oral Susp) 1 gm PO 0600,1600 [facility] Last Admin: 11/11/17 05:20 Dose: 1 gm Thiamine HCl (Vitamin B1 Tab) 100 mg PO DAILY [facility] Last Admin: 11/11/17 09:02 Dose: 100 mg Warfarin Sodium (Coumadin) 7.5 mg PO 1800 [facility] PRN Reason: Protocol Last Admin: 11/10/17 17:37 Dose: 7.5 mg - Labs Labs: 11/11/17 05:15 11/11/17 06:00 PT 19.1 SECONDS (9.4-12.5) H 11/11/17 05:15 INR 1.64 (0.93-1.08) H 11/11/17 05:15 APTT 36.8 Seconds (25.1-36.5) H 11/07/17 06:00 - Constitutional Appears: No Acute Distress - Head Exam Head Exam: ATRAUMATIC, NORMAL INSPECTION, NORMOCEPHALIC - Eye Exam Eye Exam: EOMI, Normal appearance, PERRL Pupil Exam: NORMAL ACCOMODATION, PERRL - ENT Exam ENT Exam: Mucous Membranes Moist, Normal Exam - Respiratory Exam Respiratory Exam: Clear to Ausculation Bilateral, NORMAL BREATHING PATTERN - Cardiovascular Exam Cardiovascular Exam: REGULAR RHYTHM, +S1, +S2. absent: Murmur - GI/Abdominal Exam GI & Abdominal Exam: Soft, Normal Bowel Sounds. absent: Tenderness - Neurological Exam Neurological Exam: Alert, Awake, CN II-XII Intact, Normal Gait, Oriented x3 - Psychiatric Exam Psychiatric exam: Normal Affect, Normal Mood - Skin Skin Exam: Dry, Intact, Normal Color, Warm Assessment and Plan - Assessment and Plan (Free Text) Assessment: 57 M with a PMHx of polysubstance abuse, and an active smoker admitted with elevated d-dimer and CT angio demonstrated bilateral PE with saddle embolus, large clot burden and signs of right heart strain now on therapeutic lovenox with 60mg q12 and will transition to coumadin however INR is not therapeutic. Patient hypercoaguable workup pending, fu factor Xa activity/mutation. Continue asa, cardizem 300mg QID, lopresor 25mg BID, IV Zosyn, possibel switch to PO augmentin until he is able to ssee dentist. Cardiology consulted Dr. Easton recommended IVC filter however is not a candidate at this time. Thrombocytopenia has resolved and related to alcohol abuse.
[2017-11-11 22:01] LABS: CARDIOLIPIN AB (IGA) <11 APL (<=11); CARDIOLIPIN AB (IGG) <14 GPL (<=14)
[2017-11-11 23:01] LABS: B2 GLYCOPROTEIN I AB(IGA) <9 SAU (<=20); B2 GLYCOPROTEIN I AB(IGG) <9 SGU (<=20); B2 GLYCOPROTEIN I AB(IGM) <9 SMU (<=20)
[2017-11-11 23:42] LABS: CARDIOLIPIN AB (IGM) 12 MPL (<=12); PHOSPHATIDYLSERINE AB IGA <20 U/mL (<20); PHOSPHATIDYLSERINE AB IGG <10 U/mL (<10); PHOSPHATIDYLSERINE AB IGM <25 U/mL (<25)
[2017-11-12] MEDS: Pantoprazole 40 mg EC Tab PO SCH (05:39)
[2017-11-12] MEDS: Sucralfate 1 gm/10 ml Oral Susp UD PO SCH (05:39)
[2017-11-12 06:17] LABS: BASO # 0.06 K/mm3 (0.0-2.0); BASO % 0.7 % (0.0-3.0); EOS # 0.2 (0.0-0.7); EOS % 2.7 % (1.5-5.0); GRAN # 4.75 (1.4-6.5); GRAN % 55.6 % (50.0-68.0); HEMOGLOBIN 14.6 g/dL (14.0-18.0); LYMPH # 1.5 (1.2-3.4); MEAN CELL VOLUME 95.9 fl (80.0-105.0); MEAN CORPUSCULAR HEMOGLOBIN 33.3 pg (25.0-35.0); MEAN CORPUSCULAR HGB CONC 34.7 g/dl (31.0-37.0); MEAN PLATELET VOLUME 10.4 fl (7.0-11.0); RBC 4.39 10^6/uL (3.5-6.1); RED CELL DISTRIBUTION WIDTH 13.7 % (11.5-14.5); WHITE BLOOD COUNT 8.5 10^3/ul (4.5-11.0)
[2017-11-12 06:28] LABS: ALB/GLOB RATIO 1.3 (1.1-1.8); ALBUMIN 4.1 g/dL (3.0-4.8); ALT/SGPT 36 U/L (7-56); AST/SGOT 41 U/L (17-59); BLOOD UREA NITROGEN 5 mg/dL (7-21); CALCIUM 9.1 mg/dL (8.4-10.5); GFR AFRICAN-AMERICAN > 60; GFR NON-AFRICAN AMERICAN > 60
[2017-11-12 08:17] LABS: INR 2.39 (0.93-1.08); PROTHROMBIN TIME 27.7 SECONDS (9.4-12.5)
[2017-11-12 08:27] VITALS: RESP 20; TEMP 97; O2SAT 95
[2017-11-12] MEDS: Multivitamin With Minerals Tab PO SCH (09:17)
[2017-11-12] MEDS ORDERED: Amoxicillin-Clav 875-125 mg Tab PO SCH (10:00)
[2017-11-12] MEDS: Enoxaparin 60 mg Syringe SC SCH (11:03)
[2017-11-12 11:07] VITALS: BP 123/95; PULSE 83
--- NOTE | 2017-11-12 14:41 | PN ---
DATE: 11/12/2017 SUBJECTIVE: The patient is in bed in no acute distress, was seen earlier in room 368, bed 2. No fevers and chills. PHYSICAL EXAMINATION: VITAL SIGNS: Temperature is 98, blood pressure is 120/90, respiratory rate of 20, heart rate of 92. HEENT: Unremarkable. NECK: Supple. LUNGS: Have decreased breath sounds. HEART: Normal S1, S2. LABORATORY DATA: Reveals a white count of 8.5, hemoglobin of 14, platelets of 239. BUN of 5, creatinine of 0.7. Urinalysis is noted and toxicology is noted. Serology is negative for HIV. Microbiology reveals the blood cultures negative, urine cultures are negative. MRSA screen is negative and review of orders reveals the patient to be off of antibiotics. ASSESSMENT AND PLAN: This is a 57-year-old male with systemic inflammatory response syndrome, alcohol intoxication on the top of pulmonary emboli, pharyngeal infection, odontogenic abscess, chronic sinusitis. Dr. Wood states that his Zosyn may be switch to p.o. Augmentin and review of orders again reveals the pharmacy has discontinued the Zosyn. We will start p.o. Augmentin. Robin Lee MD
--- NOTE | 2017-11-12 17:31 | CP.PCM.DIS ---
<Adalberto Dubose - Last Filed: 11/13/17 14:54> Provider - Provider Date of Admission: 11/04/17 08:53 Attending physician: Chuck Portillo MD Primary care physician: NO PRIMARY CARE PROVIDER Consults: Cardio - [place] ID - [place] ENT - [facility] ICU - [facility] Hem/Onc - [place] Time Spent in preparation of Discharge (in minutes): 60 Diagnosis - Discharge Diagnosis (1) Atrial fibrillation with RVR Status: Acute (2) Alcohol abuse Status: Acute (3) Sepsis Status: Acute (4) Saddle embolus Status: Acute (5) Pulmonary embolism, bilateral Status: Acute Hospital Course - Lab Results Lab Results: Micro Results 11/05/17 00:11 Naris MRSA Culture (Admit) - Final MRSA NOT DETECTED Most Recent Lab Values WBC 8.5 10^3/ul (4.5-11.0) 11/12/17 05:30 RBC 4.39 10^6/uL (3.5-6.1) 11/12/17 05:30 Hgb 14.6 g/dL (14.0-18.0) 11/12/17 05:30 Hct 42.1 % (42.0-52.0) 11/12/17 05:30 MCV 95.9 fl (80.0-105.0) 11/12/17 05:30 MCH 33.3 pg (25.0-35.0) 11/12/17 05:30 MCHC 34.7 g/dl (31.0-37.0) 11/12/17 05:30 RDW 13.7 % (11.5-14.5) 11/12/17 05:30 Plt Count 339 10^3/uL (120.0-450.0) 11/12/17 05:30 Manual Plt Count 129 K/mm3 (120-450) 11/08/17 05:30 MPV 10.4 fl (7.0-11.0) 11/12/17 05:30 Gran % 55.6 % (50.0-68.0) 11/12/17 05:30 Lymph % (Auto) 18.0 % (22.0-35.0) L 11/12/17 05:30 [place] % (Auto) 23.0 % (1.0-6.0) H 11/12/17 05:30 Eos % (Auto) 2.7 % (1.5-5.0) 11/12/17 05:30 Baso % (Auto) 0.7 % (0.0-3.0) 11/12/17 05:30 Gran # 4.75 (1.4-6.5) 11/12/17 05:30 Lymph # (Auto) 1.5 (1.2-3.4) 11/12/17 05:30 [place] # (Auto) 2.0 (0.1-0.6) H 11/12/17 05:30 Eos # (Auto) 0.2 (0.0-0.7) 11/12/17 05:30 Baso # (Auto) 0.06 K/mm3 (0.0-2.0) 11/12/17 05:30 Neutrophils % (Manual) 67 % (50.0-70.0) 11/10/17 06:00 Lymphocytes % (Manual) 16 % (22.0-35.0) L 11/10/17 06:00 Monocytes % (Manual) 14 % (1.0-6.0) H 11/10/17 06:00 Eosinophils % (Manual) 2 % (0.0-3.0) 11/10/17 06:00 Basophils % (Manual) 1 % (0.0-1.0) 11/10/17 06:00 Platelet Evaluation Normal (NORMAL) 11/10/17 06:00 PT 27.7 SECONDS (9.4-12.5) H 11/12/17 05:30 INR 2.39 (0.93-1.08) H 11/12/17 05:30 APTT 36.8 Seconds (25.1-36.5) H 11/07/17 06:00 Fibrinogen 579 mg/dl (200-393) H 11/08/17 05:30 D-Dimer, Quantitative 5210 ng/mL (0-243) H 11/04/17 18:58 LA dRVVT Screen Ratio 35 sec (<=45) 11/08/17 05:30 dRVVT Confirm Interp Not indicated 11/08/17 05:30 Protein C Activity 35 % (70-180) L 11/08/17 05:30 Protein S Activity 111 % (70-150) 11/05/17 09:00 Protein S Antigen 88 % (70-140) 11/08/17 05:30 Antithrombin III Activ 57 % activity (80-120) L 11/08/17 05:30 Factor V see note 11/08/17 05:30 pCO2 26 mm/Hg (35-45) L 11/04/17 06:50 pO2 64 mm/Hg (30-55) H 11/04/17 11:30 HCO3 16.1 mmol/L (21-28) L 11/04/17 06:50 ABG pH 7.40 (7.35-7.45) 11/04/17 06:50 ABG Total CO2 16.9 mmol.L (22-28) L 11/04/17 06:50 ABG O2 Saturation 97.5 % (95-98) 11/04/17 06:50 ABG O2 Content 19.6 ML/dl (15-23) 11/04/17 06:50 ABG Base Excess -6.9 mmol/L (-2.0-3.0) L 11/04/17 06:50 ABG Hemoglobin 14.7 g/dL (11.7-17.4) 11/04/17 06:50 ABG Carboxyhemoglobin 2.1 % (0.5-1.5) H 11/04/17 06:50 POC ABG HHb (Measured) 2.4 % (0-5) 11/04/17 06:50 ABG Methemoglobin 1.0 % (0.0-3.0) 11/04/17 06:50 ABG O2 Capacity 20.1 mL/dl (16-24) 11/04/17 06:50 ABG Potassium 3.1 mmol/L (3.6-5.2) L 11/04/17 02:29 VBG pH 7.40 (7.32-7.43) 11/04/17 11:30 VBG pCO2 36.0 (40-60) L 11/04/17 11:30 VBG HCO3 22.3 mmol/l (21-28) 11/04/17 11:30 VBG Total CO2 23.4 mmol.L (22-28) 11/04/17 11:30 VBG O2 Sat (Calc) 93.4 % (40-65) H 11/04/17 11:30 VBG Base Excess -2.0 mmol/L (0.0-2.0) L 11/04/17 11:30 VBG Potassium 3.4 mmol/L (3.6-5.2) L 11/04/17 11:30 Hgb O2 Saturation 94.6 % (95.0-98.0) L 11/04/17 06:50 Sodium 143.0 mmol/L (132-148) 11/04/17 11:30 Chloride 108.0 mmol/L (98-107) H 11/04/17 11:30 Glucose 112 mg/dl (75-110) H 11/04/17 11:30 Lactate 4.4 mmol/L (0.7-2.1) H* 11/04/17 11:30 FiO2 21.0 % 11/04/17 11:30 Blood Gas Comments Cancelled 11/04/17 02:29 Crit Value Called To Cancelled 11/04/17 02:29 Crit Value Called By Cancelled 11/04/17 02:29 Crit Value Read Back Cancelled 11/04/17 02:29 Blood Gas Notified Time Cancelled 11/04/17 02:29 Sodium 135 mmol/L (132-148) 11/12/17 05:30 Potassium 3.7 mmol/L (3.6-5.0) 11/12/17 05:30 Chloride 99 mmol/L (98-107) 11/12/17 05:30 Carbon Dioxide 24 mmol/L (21-33) 11/12/17 05:30 Anion Gap 16 (10-20) 11/12/17 05:30 BUN 5 mg/dL (7-21) L 11/12/17 05:30 Creatinine 0.7 mg/dl (0.8-1.5) L 11/12/17 05:30 Est GFR ( Amer) > 60 11/12/17 05:30 Est GFR (Non-Af Amer) > 60 11/12/17 05:30 POC Glucose (mg/dL) 117 mg/dL (65-110) H 11/04/17 01:21 Random Glucose 95 mg/dL (70-110) 11/12/17 05:30 Serum Osmolality 408 mosm/kg (272-300) H 11/04/17 08:33 Calcium 9.1 mg/dL (8.4-10.5) 11/12/17 05:30 Phosphorus 4.2 mg/dL (2.5-4.5) 11/12/17 05:30 Magnesium 2.0 mg/dL (1.7-2.2) 11/12/17 05:30 Total Bilirubin 0.4 mg/dL (0.2-1.3) 11/12/17 05:30 Direct Bilirubin 0.3 mg/dL (0.0-0.4) 11/06/17 04:00 AST 41 U/L (17-59) 11/12/17 05:30 ALT 36 U/L (7-56) 11/12/17 05:30 Alkaline Phosphatase 61 U/L (38-126) 11/12/17 05:30 Lactate Dehydrogenase 623 U/L (333-699) 11/04/17 08:33 Total Creatine Kinase 213 U/L (35-230) 11/04/17 08:33 Troponin I 0.16 ng/mL H* D 11/06/17 04:00 Total Protein 7.2 g/dL (5.8-8.3) 11/12/17 05:30 Albumin 4.1 g/dL (3.0-4.8) 11/12/17 05:30 Globulin 3.2 gm/dL 11/12/17 05:30 Albumin/Globulin Ratio 1.3 (1.1-1.8) 11/12/17 05:30 Triglycerides 103 mg/dL (35-160) 11/04/17 08:30 Cholesterol 139 mg/dL (130-200) 11/04/17 08:30 LDL Cholesterol Direct 46 mg/dL (0-129) 11/04/17 08:30 HDL Cholesterol 69 mg/dL (29-60) H 11/04/17 08:30 Homocysteine 9.2 umol/L ( <11.4) 11/08/17 05:30 Procalcitonin 0.08 NG/ML (0.19-0.49) L 11/04/17 08:33 TSH 3rd Generation 2.68 mIU/mL (0.46-4.68) 11/04/17 18:58 Arterial Blood Potassium 3.1 mmol/L (3.6-5.2) L 11/04/17 02:29 Venous Blood Potassium 3.4 mmol/L (3.6-5.2) L 11/04/17 11:30 Urine Color Yellow (YELLOW) 11/04/17 05:00 Urine Appearance Clear (CLEAR) 11/04/17 05:00 Urine pH 6.0 (4.7-8.0) 11/04/17 05:00 Ur Specific [place] 1.020 (1.005-1.035) 11/04/17 05:00 Urine Protein 30 mg/dL (<30 mg/dL) H 11/04/17 05:00 Urine Glucose (UA) Negative mg/dL (NEGATIVE) 11/04/17 05:00 Urine Ketones Trace mg/dL (NEGATIVE) H 11/04/17 05:00 Urine Blood Small (NEGATIVE) H 11/04/17 05:00 Urine Nitrate Negative (NEGATIVE) 11/04/17 05:00 Urine Bilirubin Negative (NEGATIVE) 11/04/17 05:00 Urine Urobilinogen 0.2 E.U./dL (<1 E.U./dL) 11/04/17 05:00 Ur Leukocyte Esterase Negative Marvin/uL (NEGATIVE) 11/04/17 05:00 Urine RBC 0 - 2 /hpf (0-2) 11/04/17 05:00 Urine WBC 0 - 2 /hpf (0-6) 11/04/17 05:00 Ur Epithelial Cells 0 - 2 /hpf (0-5) 11/04/17 05:00 Salicylates < 1 mg/dL (2.0-20.0) L 11/04/17 02:08 Urine Opiates Screen Negative (NEGATIVE) 11/04/17 05:00 Urine Methadone Screen Negative (NEGATIVE) 11/04/17 05:00 Acetaminophen < 10.0 ug/ml (10.0-20.0) L 11/04/17 02:08 Ur Barbiturates Screen Negative (NEGATIVE) 11/04/17 05:00 Ur Phencyclidine Scrn Negative (NEGATIVE) 11/04/17 05:00 Ur Amphetamines Screen Negative (NEGATIVE) 11/04/17 05:00 U Benzodiazepines Scrn Negative (NEGATIVE) 11/04/17 05:00 U Oth Cocaine Metabols Negative (NEGATIVE) 11/04/17 05:00 U Cannabinoids Screen Negative (NEGATIVE) 11/04/17 05:00 Alcohol, Quantitative 506 mg/dL (0-10) H* 11/04/17 02:08 Vefy-3-[id number] Ab <9 CHAD (<=20) 11/08/17 05:30 Beta-2 GPI IgG Ab <9 SGU (<=20) 11/08/17 05:30 Beta-2 GPI IgM Ab <9 SMU (<=20) 11/08/17 05:30 Phosphatidylserine IgG <10 U/mL (<10) 11/08/17 05:30 Phosphatidylserine IgA <20 U/mL (<20) 11/08/17 05:30 Phosphatidylserine IgM <25 U/mL (<25) 11/08/17 05:30 Anti-Phospholipid Intrp see note 11/08/17 05:30 Anti-Cardiolipin IgG Ab <14 GPL (<=14) 11/08/17 05:30 Anti-Cardiolipin IgA Ab <11 APL (<=11) 11/08/17 05:30 Anti-Cardiolipin IgM Ab 12 MPL (<=12) 11/08/17 05:30 HIV 1&2 Ag/Ab, 4th Gen Nonreactive (Nonreactive) 11/04/17 08:30 Prothrombin Mut Interp see note 11/08/17 05:30 Prothrombin Gene Mutate see note 11/08/17 05:30 Prothromb Gene Review see note 11/08/17 05:30 - Hospital Course Hospital Course: As per admission documentation Mr. Diaz is a 57 year old male with a past medical history significant for alcohol abuse and substance abuse who was brought in by ambulance after he was found intoxicated in a vehicle by police. Patient is unresponsive to verbal stimuli and unable to comply with HPI questioning due to intoxication at this time. According to the police, patient endorses that he smoked "dip" at some point prior to presentation which he described as marijuana dipped in formaldehyde. Patient was agitated in ED and threatened to leave but was not appropriate to leave AMA. He was given two doses of Ativan and placed on soft restraints. It is documented that patient had no complaints on presentation, including homicidal/suicidal ideation or any auditory or visual hallucinations. Patient was seen at [facility] once prior in 2013 with a similar presentation and was discharged with a diagnosis of alcohol abuse. Further HPI and ROS are unobtainable at this time. Hospital Course Patient was brought in by ambulance after he was found intoxicated in a vehicle by police. Patient is unresponsive to verbal stimuli. He was found to be septic in the ED with a leukocytosis of 14.9, tachycardia to 110 and with a lactic acidosis of 5.8. He was given a total of 6L of LR bolus and one dose of Vancomycin and Zosyn. He was also found to have an alcohol of 506. He was placed on four point soft restraints as he was pulling his IV access. He said that this is 2nd time he ended up in ED after taking some pills ordered on internet. UDS was negative. Alcohol was 506 on admission. Patient placed in CIWA protocol. 11/04: Anion gap 23. A-fib RVR. Pending hannall[place] re: heparin gtt. Given cardizem 5 IVP x 1; placed on cardizem drip. Head CT w/o - 1. There is a linear focus of gas within the right frontal scalp , suggestive of laceration. 2. No acute intracranial hemorrhage or acute territorial type infarct. 3. There are scattered foci of hypodensity within the cerebral white matter, likely representing small vessel ischemic disease in a patient this age. 4. Mild atrophy. 5. Multiple foci of gas are identified within the facial soft tissues and parapharyngeal soft tissues at the level of the nasopharynx. This is most significant on the right side. Foci of gas are seen within the orbits, with dilatation of the bilateral superior ophthalmic veins. A facial CT is recommended. 6. There is a cystic collection of fluid adjacent to the root of a right molar tooth extending into the right maxillary sinus measuring 1.3 x 1.3 x 1.5 cm. This is consistent with an odontogenic cyst or abscess. ENT consulted - no acute treatment needed. patient started on abx and gave patient information about dental clinic. Stated he will need to have too removed. US of LE 11/04 - shows DVT in both legs. Dr. Sprague consulted for hypercoag work up. CTA 11/04 - Bilateral pulmonary emboli, including a saddle pulmonary embolus. The clot burden is large, and there is evidence of associated right heart strain. Areas of groundglass consolidation in the upper lobes, which could be due to small bilateral infiltrates versus pulmonary infarcts. Small bilateral pleural effusions. Patient's lactic acidosis improved gradually over the next couple of days, procal 0.08, urine cx neg and blood cultures neg x2 for 5 days. He was initially admitted in the ICU but transferred out within one day. Patient was treated with zosyn throughout his hospital stay and completed 7 day course on 11/11. Patient was not believed to be septic but had a lactic acidosis secondary to PE. Patient's HR returned to sinus and was switched to po cardizem. He was initially placed on heparin drip to treat DVTs and PE but then switched to Lovenox then finally coumadin. He was bridged on coumandin over the next 5 days. He finally had an INR of 2.39 on 11/12 (date of discharge). Patient was started on a hypercoag work up with Dr. Sprague and will follow up with him as an outpatient. Dr. Easton requested a IVC filter but it was decided that patient was a not a candidate for procedure as he has a history of non- compliance and would not likely follow up appropriately as an out patient. Patient did not show any signs of alcohol withdrawal over the last few days of admission. The patient was stable and free of symptoms on 11/12 and his INR was therapeutic. He was discharged home with the following instructions. Discharge Instructions Patient is to be discharged home. Patient is to follow up with the [facility] by Tuesday, November 16, to have his blood tested (check INR). Patient is to follow up his primary care physician within one week of being discharge. If patient does not have a primary care physician, he can follow up with the [facility] at [facility]. Patient is to follow up with the Dental Clinic located at [facility] upon discharge. - He is to take Augmentin until he is seen by a Dentist. Patient is to follow up with Dr. Sprague for continued work up and treatment of hypercoagulability. Patient informed of the importance to avoid alcohol and tobacco products upon discharge. These products are very dangerous to his health and could potentially cause severe complications if ingested. If patient experiences any new or worsening symptoms, please go directly to the nearest emergency room. Take care and be well. This is just a brief summary of the patient's hospital course. Please see EMR for full detail. Discharge Exam - Head Exam Head Exam: ATRAUMATIC, NORMAL INSPECTION, NORMOCEPHALIC - Eye Exam Eye Exam: EOMI, Normal appearance - ENT Exam ENT Exam: Mucous Membranes Moist - Respiratory Exam Respiratory Exam: Clear to PA & Lateral, NORMAL BREATHING PATTERN, UNREMARKABLE. absent: Accessory Muscle Use, Rales, Rhonchi, Wheezes, Respiratory Distress - Cardiovascular Exam Cardiovascular Exam: REGULAR RHYTHM, +S1, +S2 - GI/Abdominal Exam GI & Abdominal Exam: Normal Bowel Sounds, Soft. absent: Distended, Firm, Guarding, Rebound, Rigid, Tenderness - Extremities Exam Extremities exam: normal inspection, pedal pulses present - Back Exam Back exam: absent: CVA tenderness (L), CVA tenderness (R), paraspinal tenderness - Neurological Exam Neurological exam: Alert, CN II-XII Intact, Oriented x3 - Psychiatric Exam Psychiatric exam: Normal Affect, Normal Mood - Skin Skin Exam: Dry, Warm Discharge Plan - Discharge Medications Prescriptions: RX: Aspirin [Aspirin Chewable] 81 mg PO DAILY #10 chew RX: Amoxicillin/Clavulanate [Augmentin 875 MG-125 MG Tab] 1 tab PO Q12 #20 tab RX: diltiaZEM [Cardizem] 30 mg PO QID #40 tab Warfarin [Coumadin] 5 mg PO 1800 #5 tab RX: Atorvastatin [Lipitor] 20 mg PO DIN #10 tab RX: Metoprolol Tartrate [Lopressor] 50 mg PO BRKDIN #20 tab RX: Multimineral/Multivitamin [Therapeutic-M Tab] 1 tab PO 0800 #10 tab RX: Lisinopril [Zestril] 5 mg PO DAILY #10 tab - Follow Up Plan Condition: GUARDED Disposition: HOME/ ROUTINE Instructions: Sepsis in Adults, Alcohol Withdrawal (DC), Alcohol Abuse and Alcoholism (DC) Additional Instructions: Patient is to be discharged home. Patient is to follow up with the [facility] by November 16, to have his blood tested (check INR). Patient is to follow up his primary care physician within one week of being discharge. If patient does not have a primary care physician, he can follow up with the [facility]. Patient is to follow up with the Dental Clinic located at [facility] upon discharge. - He is to take Augmentin until he is seen by a Dentist. Patient is to follow up with Dr. Sprague for continued work up and treatment of hypercoagulability Patient informed of the importance to avoid alcohol and tobacco products upon discharge. These products are very dangerous to his health and could potentially cause severe complications if ingested. If patient experiences any new or worsening symptoms, please go directly to the nearest emergency room. Take care and be well. Referrals: [facility] [Outside] Trey Sprague MD [Staff Provider] - PCP,NO [Primary Care Provider] - Clinical Quality Measures - CQM - VTE Did patient receive overlap therapy during hosptialization?: No If no, please select a reason why?: Use of Anticoagulants Is patient being discharged on overlap therapy?: No If no, please select a reason why:: Use of Anticoagulants <Chuck Portillo - Last Filed: 11/14/17 07:26> Provider - Provider Date of Admission: 11/04/17 08:53 Attending physician: Chuck Portillo MD Primary care physician: NO PRIMARY CARE PROVIDER Hospital Course - Lab Results Lab Results: Micro Results 11/05/17 00:11 Naris MRSA Culture (Admit) - Final MRSA NOT DETECTED Most Recent Lab Values WBC 8.5 10^3/ul (4.5-11.0) 11/12/17 05:30 RBC 4.39 10^6/uL (3.5-6.1) 11/12/17 05:30 Hgb 14.6 g/dL (14.0-18.0) 11/12/17 05:30 Hct 42.1 % (42.0-52.0) 11/12/17 05:30 MCV 95.9 fl (80.0-105.0) 11/12/17 05:30 MCH 33.3 pg (25.0-35.0) 11/12/17 05:30 MCHC 34.7 g/dl (31.0-37.0) 11/12/17 05:30 RDW 13.7 % (11.5-14.5) 11/12/17 05:30 Plt Count 339 10^3/uL (120.0-450.0) 11/12/17 05:30 Manual Plt Count 129 K/mm3 (120-450) 11/08/17 05:30 MPV 10.4 fl (7.0-11.0) 11/12/17 05:30 Gran % 55.6 % (50.0-68.0) 11/12/17 05:30 Lymph % (Auto) 18.0 % (22.0-35.0) L 11/12/17 05:30 [place] % (Auto) 23.0 % (1.0-6.0) H 11/12/17 05:30 Eos % (Auto) 2.7 % (1.5-5.0) 11/12/17 05:30 Baso % (Auto) 0.7 % (0.0-3.0) 11/12/17 05:30 Gran # 4.75 (1.4-6.5) 11/12/17 05:30 Lymph # (Auto) 1.5 (1.2-3.4) 11/12/17 05:30 [place] # (Auto) 2.0 (0.1-0.6) H 11/12/17 05:30 Eos # (Auto) 0.2 (0.0-0.7) 11/12/17 05:30 Baso # (Auto) 0.06 K/mm3 (0.0-2.0) 11/12/17 05:30 Neutrophils % (Manual) 67 % (50.0-70.0) 11/10/17 06:00 Lymphocytes % (Manual) 16 % (22.0-35.0) L 11/10/17 06:00 Monocytes % (Manual) 14 % (1.0-6.0) H 11/10/17 06:00 Eosinophils % (Manual) 2 % (0.0-3.0) 11/10/17 06:00 Basophils % (Manual) 1 % (0.0-1.0) 11/10/17 06:00 Platelet Evaluation Normal (NORMAL) 11/10/17 06:00 PT 27.7 SECONDS (9.4-12.5) H 11/12/17 05:30 INR 2.39 (0.93-1.08) H 11/12/17 05:30 APTT 36.8 Seconds (25.1-36.5) H 11/07/17 06:00 Fibrinogen 579 mg/dl (200-393) H 11/08/17 05:30 D-Dimer, Quantitative 5210 ng/mL (0-243) H 11/04/17 18:58 LA dRVVT Screen Ratio 35 sec (<=45) 11/08/17 05:30 dRVVT Confirm Interp Not indicated 11/08/17 05:30 Protein C Activity 35 % (70-180) L 11/08/17 05:30 Protein S Activity 111 % (70-150) 11/05/17 09:00 Protein S Antigen 88 % (70-140) 11/08/17 05:30 Antithrombin III Activ 57 % activity (80-120) L 11/08/17 05:30 Factor V see note 11/08/17 05:30 pCO2 26 mm/Hg (35-45) L 11/04/17 06:50 pO2 64 mm/Hg (30-55) H 11/04/17 11:30 HCO3 16.1 mmol/L (21-28) L 11/04/17 06:50 ABG pH 7.40 (7.35-7.45) 11/04/17 06:50 ABG Total CO2 16.9 mmol.L (22-28) L 11/04/17 06:50 ABG O2 Saturation 97.5 % (95-98) 11/04/17 06:50 ABG O2 Content 19.6 ML/dl (15-23) 11/04/17 06:50 ABG Base Excess -6.9 mmol/L (-2.0-3.0) L 11/04/17 06:50 ABG Hemoglobin 14.7 g/dL (11.7-17.4) 11/04/17 06:50 ABG Carboxyhemoglobin 2.1 % (0.5-1.5) H 11/04/17 06:50 POC ABG HHb (Measured) 2.4 % (0-5) 11/04/17 06:50 ABG Methemoglobin 1.0 % (0.0-3.0) 11/04/17 06:50 ABG O2 Capacity 20.1 mL/dl (16-24) 11/04/17 06:50 ABG Potassium 3.1 mmol/L (3.6-5.2) L 11/04/17 02:29 VBG pH 7.40 (7.32-7.43) 11/04/17 11:30 VBG pCO2 36.0 (40-60) L 11/04/17 11:30 VBG HCO3 22.3 mmol/l (21-28) 11/04/17 11:30 VBG Total CO2 23.4 mmol.L (22-28) 11/04/17 11:30 VBG O2 Sat (Calc) 93.4 % (40-65) H 11/04/17 11:30 VBG Base Excess -2.0 mmol/L (0.0-2.0) L 11/04/17 11:30 VBG Potassium 3.4 mmol/L (3.6-5.2) L 11/04/17 11:30 Hgb O2 Saturation 94.6 % (95.0-98.0) L 11/04/17 06:50 Sodium 143.0 mmol/L (132-148) 11/04/17 11:30 Chloride 108.0 mmol/L (98-107) H 11/04/17 11:30 Glucose 112 mg/dl (75-110) H 11/04/17 11:30 Lactate 4.4 mmol/L (0.7-2.1) H* 11/04/17 11:30 FiO2 21.0 % 11/04/17 11:30 Blood Gas Comments Cancelled 11/04/17 02:29 Crit Value Called To Cancelled 11/04/17 02:29 Crit Value Called By Cancelled 11/04/17 02:29 Crit Value Read Back Cancelled 11/04/17 02:29 Blood Gas Notified Time Cancelled 11/04/17 02:29 Sodium 135 mmol/L (132-148) 11/12/17 05:30 Potassium 3.7 mmol/L (3.6-5.0) 11/12/17 05:30 Chloride 99 mmol/L (98-107) 11/12/17 05:30 Carbon Dioxide 24 mmol/L (21-33) 11/12/17 05:30 Anion Gap 16 (10-20) 11/12/17 05:30 BUN 5 mg/dL (7-21) L 11/12/17 05:30 Creatinine 0.7 mg/dl (0.8-1.5) L 11/12/17 05:30 Est GFR ( Amer) > 60 11/12/17 05:30 Est GFR (Non-Af Amer) > 60 11/12/17 05:30 POC Glucose (mg/dL) 117 mg/dL (65-110) H 11/04/17 01:21 Random Glucose 95 mg/dL (70-110) 11/12/17 05:30 Serum Osmolality 408 mosm/kg (272-300) H 11/04/17 08:33 Calcium 9.1 mg/dL (8.4-10.5) 11/12/17 05:30 Phosphorus 4.2 mg/dL (2.5-4.5) 11/12/17 05:30 Magnesium 2.0 mg/dL (1.7-2.2) 11/12/17 05:30 Total Bilirubin 0.4 mg/dL (0.2-1.3) 11/12/17 05:30 Direct Bilirubin 0.3 mg/dL (0.0-0.4) 11/06/17 04:00 AST 41 U/L (17-59) 11/12/17 05:30 ALT 36 U/L (7-56) 11/12/17 05:30 Alkaline Phosphatase 61 U/L (38-126) 11/12/17 05:30 Lactate Dehydrogenase 623 U/L (333-699) 11/04/17 08:33 Total Creatine Kinase 213 U/L (35-230) 11/04/17 08:33 Troponin I 0.16 ng/mL H* D 11/06/17 04:00 Total Protein 7.2 g/dL (5.8-8.3) 11/12/17 05:30 Albumin 4.1 g/dL (3.0-4.8) 11/12/17 05:30 Globulin 3.2 gm/dL 11/12/17 05:30 Albumin/Globulin Ratio 1.3 (1.1-1.8) 11/12/17 05:30 Triglycerides 103 mg/dL (35-160) 11/04/17 08:30 Cholesterol 139 mg/dL (130-200) 11/04/17 08:30 LDL Cholesterol Direct 46 mg/dL (0-129) 11/04/17 08:30 HDL Cholesterol 69 mg/dL (29-60) H 11/04/17 08:30 Homocysteine 9.2 umol/L ( <11.4) 11/08/17 05:30 Procalcitonin 0.08 NG/ML (0.19-0.49) L 11/04/17 08:33 TSH 3rd Generation 2.68 mIU/mL (0.46-4.68) 11/04/17 18:58 Arterial Blood Potassium 3.1 mmol/L (3.6-5.2) L 11/04/17 02:29 Venous Blood Potassium 3.4 mmol/L (3.6-5.2) L 11/04/17 11:30 Urine Color Yellow (YELLOW) 11/04/17 05:00 Urine Appearance Clear (CLEAR) 11/04/17 05:00 Urine pH 6.0 (4.7-8.0) 11/04/17 05:00 Ur Specific [place] 1.020 (1.005-1.035) 11/04/17 05:00 Urine Protein 30 mg/dL (<30 mg/dL) H 11/04/17 05:00 Urine Glucose (UA) Negative mg/dL (NEGATIVE) 11/04/17 05:00 Urine Ketones Trace mg/dL (NEGATIVE) H 11/04/17 05:00 Urine Blood Small (NEGATIVE) H 11/04/17 05:00 Urine Nitrate Negative (NEGATIVE) 11/04/17 05:00 Urine Bilirubin Negative (NEGATIVE) 11/04/17 05:00 Urine Urobilinogen 0.2 E.U./dL (<1 E.U./dL) 11/04/17 05:00 Ur Leukocyte Esterase Negative Marvin/uL (NEGATIVE) 11/04/17 05:00 Urine RBC 0 - 2 /hpf (0-2) 11/04/17 05:00 Urine WBC 0 - 2 /hpf (0-6) 11/04/17 05:00 Ur Epithelial Cells 0 - 2 /hpf (0-5) 11/04/17 05:00 Salicylates < 1 mg/dL (2.0-20.0) L 11/04/17 02:08 Urine Opiates Screen Negative (NEGATIVE) 11/04/17 05:00 Urine Methadone Screen Negative (NEGATIVE) 11/04/17 05:00 Acetaminophen < 10.0 ug/ml (10.0-20.0) L 11/04/17 02:08 Ur Barbiturates Screen Negative (NEGATIVE) 05/25/18 05:00 Ur Phencyclidine Scrn Negative (NEGATIVE) 11/04/17 05:00 Ur Amphetamines Screen Negative (NEGATIVE) 11/04/17 05:00 U Benzodiazepines Scrn Negative (NEGATIVE) 11/04/17 05:00 U Oth Cocaine Metabols Negative (NEGATIVE) 11/04/17 05:00 U Cannabinoids Screen Negative (NEGATIVE) 11/04/17 05:00 Alcohol, Quantitative 506 mg/dL (0-10) H* 11/04/17 02:08 [id number]-9-Toclcisochbx Ab <9 CHAD (<=20) 11/08/17 05:30 Beta-2 GPI IgG Ab <9 SGU (<=20) 11/08/17 05:30 Beta-2 GPI IgM Ab <9 [facility]U (<=20) 11/08/17 05:30 Phosphatidylserine IgG <10 U/mL (<10) 11/08/17 05:30 Phosphatidylserine IgA <20 U/mL (<20) 11/08/17 05:30 Phosphatidylserine IgM <25 U/mL (<25) 11/08/17 05:30 Anti-Phospholipid Intrp see note 11/08/17 05:30 Anti-Cardiolipin IgG Ab <14 GPL (<=14) 11/08/17 05:30 Anti-Cardiolipin IgA Ab <11 APL (<=11) 11/08/17 05:30 Anti-Cardiolipin IgM Ab 12 MPL (<=12) 11/08/17 05:30 HIV 1&2 Ag/Ab, 4th Gen Nonreactive (Nonreactive) 11/04/17 08:30 Prothrombin Mut Interp see note 11/08/17 05:30 Prothrombin Gene Mutate see note 11/08/17 05:30 Prothromb Gene Review see note 11/08/17 05:30 Attending/Attestation - Attestation I have personally seen and examined this patient.: Yes I have fully participated in the care of the patient.: Yes I have reviewed all pertinent clinical information, including history, physical exam and plan: Yes Notes (Text): 11/14/17 07:24 Attending note; Patient seen and examined with resident. Patient is a 57 year old male with past medical history of alcohol abuse, substance abuse was initially admitted with alcohol abuse. CT head showed multiple foci of gas in parapharyngeal tissues and dental abscess. Treated with IV Zosyn. ID evaluation appreciated. Patient is clinically stable. Tolerating diet well. ENT evaluation appreciated. Patient will be referred to [facility] for tooth extraction. clinic information given. He was found to have elevated d-dimer and CT angio showed for bilateral PE with saddle embolus, large clot burden and signs of right heart strain. Patient is currently on subcutaneous Lovenox. Started on Coumadin. INR is 2.3. today. Thrombocytopenia; resolved.secondary to alcohol abuse. Alcohol abuse; complete alcohol cessation is strongly advised. Agreed to stop alcohol abuse. Physical therapy evaluation appreciated. Continue therapy. Discharge home today. Patient will be referred to [facility] clinic upon discharge. Diagnosis; Alcohol abuse Pulmonary embolus Caries tooth Thrombocytopenia
== END 2017-11-12 13:55 | disposition home or self-care (01) | DRG 871 ==
LOC: ED 01:16 → UNDOADMIN 05:11 → ERH 05:11 → 2RNO 10:28 → CCU 23:25 → 2RNO 11-07 15:17 → 3RNO 11-10 16:09
PROVIDERS: ADMIT Internal Medicine; ATTEND Internal Medicine
DX: A41.9 Sepsis, unspecified organism (principal); I21.4 Non-ST elevation (NSTEMI) myocardial infarction; I26.92 Saddle embolus of pulmonary artery without acute cor pulmonale; F10.231 Alcohol dependence with withdrawal delirium; E87.2 Acidosis; I42.6 Alcoholic cardiomyopathy; I82.433 Acute embolism and thrombosis of popliteal vein, bilateral; I82.443 Acute embolism and thrombosis of tibial vein, bilateral; I82.413 Acute embolism and thrombosis of femoral vein, bilateral; D69.59 Other secondary thrombocytopenia; E87.6 Hypokalemia; F12.90 Cannabis use, unspecified, uncomplicated; F17.210 Nicotine dependence, cigarettes, uncomplicated; I08.1 Rheumatic disorders of both mitral and tricuspid valves; I10 Essential (primary) hypertension; I27.20 Pulmonary hypertension, unspecified; I48.0 Paroxysmal atrial fibrillation; J32.9 Chronic sinusitis, unspecified; J44.9 Chronic obstructive pulmonary disease, unspecified; K02.9 Dental caries, unspecified; K04.7 Periapical abscess without sinus; K04.8 Radicular cyst; R79.1 Abnormal coagulation profile; Y90.8 Blood alcohol level of 240 mg/100 ml or more; Z78.1 Physical restraint status; Z79.82 Long term (current) use of aspirin; Z79.899 Other long term (current) drug therapy

== ENCOUNTER 2018-02-03 18:36 | Emergency (ER) | payer MEDICAID ==
[2018-02-03 18:45] VITALS: TEMP 98.1; BMI 22.4
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
[2018-02-03 19:33] VITALS: BP 203/108; PULSE 60; RESP 16; O2SAT 98
== END 2018-02-03 19:25 | disposition home or self-care (01) ==
LOC: ED 18:36
DX: I10 Essential (primary) hypertension (principal); I48.91 Unspecified atrial fibrillation; Z91.14 Patient's other noncompliance with medication regimen; F17.210 Nicotine dependence, cigarettes, uncomplicated